=== PATIENT | male | born 1940 | race Caucasian/White ===

== ENCOUNTER 2019-08-02 14:17 | Emergency (ER) | payer OTHER ==
[2019-08-02 14:50] VITALS: TEMP 98.7; BMI 24.5
--- NOTE | 2019-08-02 15:09 | PDOC ---
History of Present Illness - General Chief Complaint: Injury Stated Complaint: FALL Time Seen by Provider: 08/02/19 14:49 - History of Present Illness Initial Comments: 08/02/19 15:10 Pt is an 79 y/o M with a significant past medical history of Emphysema, CAD, and TB who presents to our emergency Department due to a mechanical fall. Pt endorses that earlier today, he was walking and lost his balance. Pt endorses he landed with his hands facing forward; endorses he hit his head but did not lose any consciousness. Endorses lightheadedness before the fall. Denies chest pain, palpitations, shortness of breath, changes in vision, nausea/vomiting, or confusion,. PMH CAD s/p 1 stent. Lung resection 2/2 suspicious nodule, emphysema Social Hx- Smokes [id number] years, denies alcohol SurgHx- Lung Resection Past History - Past Medical History Allergies/Adverse Reactions: Allergies Allergy/AdvReac Type Severity Reaction Status Date / Time No Known Allergies Allergy Verified 08/02/19 15:36 COPD: Yes (emphysema/ TB) - Surgical History Cardiac Surgery: Yes (stent x 1 02/11/18 at [facility]) - Psycho Social/Smoking Cessation Hx Smoking History: Current every day smoker Number of Cigarettes Smoked Daily: 10 Information on smoking cessation initiated: No Hx Alcohol Use: No Drug/Substance Use Hx: No Review of Systems - Review of Systems Able to Perform ROS?: Yes Is the patient limited Bruneian proficient: No Constitutional: No: Fever, Weakness HEENTM: Yes: Blurred Vision (Not a new finding. Endorses h/o blurry vision. ). No: Eye Pain, Recent change in vision Respiratory: No: Cough, Shortness of Breath, Wheezing Cardiac (ROS): Yes: Lightheadedness. No: Chest Pain, Irregular Heart Rate, Syncope, Chest Tightness ABD/GI: No: Constipated, Diarrhea, Nausea Neurological: No: Headache, Numbness, Paresthesia, Unsteady Gait, Ataxia *Physical Exam - Vital Signs Last Vital Signs Temp Pulse Resp BP Pulse Ox 98.7 F 68 16 155/72 100 08/02/19 14:20 08/02/19 14:20 08/02/19 14:20 08/02/19 14:20 08/02/19 14:20 - Physical Exam HEENT: positive: EOMI, Other (laceration above right eye brow ). negative: Scleral Icterus (R), Scleral Icterus (L) Neck: positive: Supple Respiratory/Chest: positive: Decreased Breath Sounds Cardiovascular: positive: Regular Rhythm, Regular Rate, S1, S2 Gastrointestinal/Abdominal: negative: Distended, Guarding, Rebound, Tenderness Integumentary: positive: Other (superficial laceration b/l hands. 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 negative: Facial Droop, Numbness, Sensory Deficit ED Treatment Course - LABORATORY CBC & Chemistry Diagram: 08/02/19 16:52 08/02/19 16:52 Medical Decision Making - Medical Decision Making 08/02/19 15:34 Pt with mechanical fall, head trauma. Will order Head Ct to assess for any bleed. Also will order cbc w/ diff, CMP Will suture right index finger. Boostrix IM ordered. 08/02/19 16:57 Performed Laceration repair of right index finger. Full ROM, no sensory loss, no exposed bone or tendon. Informed Pt to rerurn to ER in 5-7 days to remove sutures. Head CT----> No Ct evidence of acute intracranial pathology. Probable 0.8x0.4 partially calcified right frontal meningioma. Mild periventricular chronic microvascular ischemic changes. Copy given to patient. Will d/c patient with close follow up with PMD. 08/04/19 13:16 Discharge - Discharge Information Problems reviewed: Yes Clinical Impression/Diagnosis: Fall Condition: Improved Disposition: HOME - Admission No - Follow up/Referral Referrals: Tonya Rey [Primary Care Provider] - - Patient Discharge Instructions Patient Printed Discharge Instructions: DI for Laceration Repair, How to Prevent Falls Additional Instructions: You were treated in the Emergency Department due to a head injury due to a fall. You also received sutures on your right index finger. Please return to the E.R in 5-7 days to remove the sutures. You may shower with a plastic bag over the finger. If you notice any increasing redness, swelling, warmth, or discoloration of the finger, please return to the emergency department immediately. If you develop any fever, nausea/vomiting, chest pain, headache, shortness of breath or any other abnormal symptoms, please return to the emergency department immediately. Please follow up with your primary care doctor within 1 week. - Post Discharge Activity
[2019-08-02] MEDS ORDERED: DIPHTH,PERTUSS(ACELL),TET 0.5 ML DISP.SYRIN IM ONE (15:32)
--- NOTE | 2019-08-02 15:49 | PDOC ---
Documentation entered by Mook Brown SCRIBE, acting as scribe for Nilda Campbell MD. Nilda Campbell MD: This documentation has been prepared by the Stephanie edwards Nirvannie, SCRIBE, under my direction and personally reviewed by me in its entirety. I confirm that the documentation accurately reflects all work, treatment, procedures, and medical decision making performed by me. Attending Attestation - Resident Resident Name: DrewTyrese - ED Attending Attestation I have performed the following: I have examined & evaluated the patient, The case was reviewed & discussed with the resident, I agree w/resident's findings & plan - HPI HPI: 08/02/19 15:46 Mr. Scott is an 79 y/o M h/o Emphysema, CAD, and TB who presents today s/p mechanical fall. He lost his balance, fell forward and landed on his hands (+) head trauma, no LOC, no amnesia No chest pain, no shortness of breath, no palpitations No nausea, vomiting or diarrhea - Physicial Exam PE: 08/02/19 15:48 GENERAL: The patient is in no acute distress. HEENT: bruising and abrasion right lateral orbital ridge, EOMI, PERRLA Ears normal, nares patent, oropharynx clear without exudates. Bite is nmlMoist mucous membranes. NECK: Normal range of motion, supple, no midline tenderness to palpation LUNGS: Breath sounds equal, clear to auscultation bilaterally. No wheezes, and no crackles. HEART:Regular rate and rhythm, normal S1 and S2 without murmur, rub or gallop. ABDOMEN: Soft, nontender, normoactive bowel sounds. EXTREMITIES: Normal range of motion, no edema. NEUROLOGICAL: Cranial nerves II through XII grossly intact. Normal speech. No focal neurological deficits. SKIN: bilateral hand abrasions noted on the dorsum of both hands 08/02/19 16:18 - Medical Decision Making 08/02/19 15:48 79-year-old male presenting to the emergency department status post mechanical fall. No loss of consciousness, no amnesia. We will do: Lab EKG CT head Boostrix Xray hand ReAssess Signed out to Dr. Barr pending CT, suture repair, labs Anticipate discharge
[2019-08-02 17:06] LABS: BASO % 0.7 % (0-2.0); EOS % 0.7 % (0-4.5); HEMATOCRIT 44.2 % (35.4-49); HEMOGLOBIN 15.1 GM/dL (11.7-16.9); LYMPH % 13.3 % (8-40); MCH 32.8 pg (25.7-33.7); MCHC 34.1 g/dl (32.0-35.9); MEAN CELL VOLUME 96.2 fl (80-96); MEAN PLT VOLUME 8.5 fl (7.5-11.1); MONO % 5.9 % (3.8-10.2); NEUT % 79.4 % (42.8-82.8); PLATELET COUNT 180 K/MM3 (134-434); RDW 13.4 % (11.9-15.9); WHITE BLOOD COUNT 12.5 K/mm3 (4.0-10.0)
[2019-08-02 17:28] LABS: ALBUMIN 3.5 g/dl (3.4-5.0); BILIRUBIN,TOTAL 0.5 mg/dL (0.2-1); BLOOD UREA NITROGEN 19.2 mg/dL (7-18); CALCIUM 8.7 mg/dL (8.5-10.1); CREATININE 0.8 mg/dL (0.55-1.3); POTASSIUM 3.8 mmol/L (3.5-5.1); TOT PROT 6.7 g/dl (6.4-8.2)
[2019-08-02 17:40] VITALS: BP 148/72; PULSE 76
== END 2019-08-02 17:40 | disposition home or self-care (01) ==
LOC: JER 14:17
PROC: 3E0234Z Introduction of Serum, Toxoid and Vaccine into Muscle, Percutaneous Approach (ICD-10-PCS; principal; 2019-08-02)
PROC: 0HQFXZZ Repair Right Hand Skin, External Approach (ICD-10-PCS; 2019-08-02)
DX: S09.8XXA Other specified injuries of head, initial encounter (principal); S61.210A Laceration without foreign body of right index finger without damage to nail, initial encounter; S00.81XA Abrasion of other part of head, initial encounter; Y93.89 Activity, other specified; W18.39XA Other fall on same level, initial encounter; Y92.480 Sidewalk as the place of occurrence of the external cause; Y99.8 Other external cause status; J43.9 Emphysema, unspecified; I25.10 Atherosclerotic heart disease of native coronary artery without angina pectoris; Z95.5 Presence of coronary angioplasty implant and graft; Z98.890 Other specified postprocedural states; Z86.11 Personal history of tuberculosis
CPT/HCPCS: 12001-25; 36415; 70450-TC; 80053; 85025; 90471; 90715; 99282-25

== ENCOUNTER 2020-05-22 19:06 | Inpatient (IN) | payer OTHER ==
--- NOTE | 2020-05-22 19:52 | PDOC ---
Attending Attestation - Resident Resident Name: Abdulaziz Lopez - HPI HPI: 05/22/20 23:30 Pt presents to the ED complaining of generalized weakness after fall. Denies LOC, but states that he was unable to get up. on my exam, the patient is confused, which is not his baseline as per his son. 05/23/20 00:24 - Physicial Exam PE: 05/23/20 00:25 Agree with resident exam. Patient is alert and oriented and in no acute distress. Lungs are clear. CV rr + systolic murmur. Abdomen soft, non tender, non distended. Neuro: alert, oriented x 1. CN grossly intact. - Medical Decision Making 05/23/20 00:27 Pt presents to the ED complaining of generalized weakness. COnfused on exam. Labs show UTI, CT head is negative for acute changes. Will start antibiotics and admit to medicine. Discharge - Discharge Information Problems reviewed: Yes Clinical Impression/Diagnosis: Fall UTI (urinary tract infection) Qualifiers: Urinary tract infection type: site unspecified Hematuria presence: with hematuria Qualified Code(s): N39.0 - Urinary tract infection, site not specified Condition: Guarded - Follow up/Referral - Patient Discharge Instructions - Post Discharge Activity
[2020-05-22 20:28] VITALS: BMI 22.7
[2020-05-22 21:28] LABS: BASO % 0.1 % (0-2.0); HEMATOCRIT 44.2 % (35.4-49); HEMOGLOBIN 14.6 GM/dL (11.7-16.9); LYMPH % 4.2 % (8-40); MCH 32.2 pg (25.7-33.7); MCHC 33.1 g/dl (32.0-35.9); MEAN CELL VOLUME 97.3 fl (80-96); MEAN PLT VOLUME 8.9 fl (7.5-11.1); MONO % 9.2 % (3.8-10.2); NEUT % 86.5 % (42.8-82.8); PLATELET COUNT 173 K/MM3 (134-434); RBC 4.54 M/mm3 (4.00-5.60); RDW 13.9 % (11.9-15.9); WHITE BLOOD COUNT 19.6 K/mm3 (4.0-10.0)
[2020-05-22 21:32] LABS: EPI CELLS 1 /uL (0-25.1); HYALINE CASTS 2 /uL (0-3.1); URINE APPEARANCE CLEAR; URINE BACTERIA >9,000 /uL (0-1359); URINE BILIRUBIN NEGATIVE (NEGATIVE); URINE COLOR YELLOW; URINE GLUCOSE (UA) NEGATIVE (NEGATIVE); URINE KETONE 3+ (NEGATIVE); URINE LEUK ESTERASE 1+ (NEGATIVE); URINE NITRITE POSITIVE (NEGATIVE); URINE PROTEIN 2+ (NEGATIVE); URINE RBC 17 /uL (0-23.9); URINE WBC 122 /uL (0-25.8)
[2020-05-22 22:00] LABS: ALBUMIN 3.4 g/dl (3.4-5.0); BILIRUBIN,TOTAL 1.9 mg/dL (0.2-1); BLOOD UREA NITROGEN 20.2 mg/dL (7-18); CALCIUM 8.7 mg/dL (8.5-10.1); CREATININE 1.2 mg/dL (0.55-1.3); POTASSIUM 3.4 mmol/L (3.5-5.1); TOT PROT 7.1 g/dl (6.4-8.2)
[2020-05-22] MEDS ORDERED: CEFTRIAXONE 1 GM in DEXTROSE 5%-WATER - 100 ML IVPB ONE (22:01)
--- NOTE | 2020-05-22 22:06 | PDOC ---
History of Present Illness - General Chief Complaint: Injury Stated Complaint: FALL Time Seen by Provider: 05/22/20 19:46 History Source: Patient Exam Limitations: No Limitations - History of Present Illness Initial Comments: 05/22/20 22:00 79 yo M pmh COPD, HTN, lung resection, h/o TB presenting from home s/p fall with inability to stand up afterwards. Per EMS, patient was on the ground, unable to remain standing without their assistance, unable to remain standing with his w alker alone. Complaining only of generalized weakness. Son at bedside says he seems more confused than this past weekend (normally can hold a complete relatively sophisticated conversation) and is talking about having a stroke 4 weeks ago that did not happen. Also notes some tremulousness that has increased since baseline. Patient has had increasingly unsteady gait over the past 2-3 weeks. Denies headache, nausea, vomiting, fevers, chills, headache, changes in his vision. Reports that he was upset with something in his Past History - Travel History Traveled outside of the country in the last 30 days: No Close contact w/someone who was outside of country & ill: No - Medical History Allergies/Adverse Reactions: Allergies Allergy/AdvReac Type Severity Reaction Status Date / Time No Known Allergies Allergy Verified 08/02/19 15:36 COPD: Yes (emphysema/ TB) - Surgical History Cardiac Surgery: Yes (stent x 1 02/11/18 at [facility]) - Psycho-Social/Smoking History Smoking History: Former smoker Have you smoked in the past 12 months: No Number of Cigarettes Smoked Daily: 20 Information on smoking cessation initiated: Yes - Substance Abuse Hx (Audit-C & DAST Scrn) How often the patient has a drink containing alcohol: Never Score: In Men: 4 or > Positive; In Women: 3 or > Positive: 0 Screen Result (Pos requires Nsg. Audit-10AR): Negative In the last yr the pt used illegal drug/Rx for NonMed reason: No Score: Yes response is considered Positive: 0 Screen Result (Positive result requires Nsg. DAST-10): Negative Review of Systems - Review of Systems Able to Perform ROS?: Yes Is the patient limited Martiniquais proficient: Yes Constitutional: Yes: Weakness. No: Chills, Fever HEENTM: No: Recent change in vision, Nose Pain, Throat Pain Respiratory: No: Cough, Shortness of Breath, Wheezing, Productive cough Cardiac (ROS): No: Chest Pain, Edema, Irregular Heart Rate, Lightheadedness, Palpitations, Syncope, Chest Tightness ABD/GI: No: Constipated, Diarrhea, Nausea, Vomiting : No: Burning, Dysuria, Frequency Musculoskeletal: Yes: Muscle Weakness. No: Muscle Pain Integumentary: No: Bruising, Pruritus, Rash Neurological: No: Headache, Numbness, Tingling, Weakness Psychiatric: No: Stressors, Change in Appetite Endocrine: No: Increased Thirst, Increased Urine, Change in Weight Hematologic/Lymphatic: No: Anemia, Blood Clots, Easy Bleeding All Other Systems: Reviewed and Negative *Physical Exam - Vital Signs Last Vital Signs Temp Pulse Resp BP Pulse Ox 99.0 F 74 18 141/60 98 05/22/20 20:25 05/22/20 20:25 05/22/20 20:25 05/22/20 20:25 05/22/20 20:25 - Physical Exam 05/22/20 22:10 Vitals reviewed, AFVSS 99.0 oral temp GEN: Appears stated age, NAD, comfortable, confused, room smells of urine. AAOx2. HEENT: NCAT, EOMI, PERRL. Sclera anicteric, non-injected. No facial asymmetry. Moist mucous membranes. Normal voice. Trachea midline. CV: RRR, S1/S2, no murmurs / rubs / gallops appreciated. LUNG: CTABL, normal work of breathing. No wheezes, rales, rhonchi. No cough. Speaking full sentences. GI: Soft, NTND, +BS, no guarding, no rebound. No masses. EXTREMITIES: 2+ distal pulses. No clubbing / cyanosis / edema. No gross deformity in any extremity. SKIN: Warm, dry, no rashes appreciated, non-jaundiced. PSYCH: Normal mood and affect. Cooperative and appropriate. NEURO: CN grossly intact. Moving all extremities equally. Normal symmetric strength and sensation of light touch. ED Treatment Course - LABORATORY CBC & Chemistry Diagram: 05/22/20 21:00 05/22/20 21:00 - ADDITIONAL ORDERS Additional order review: Laboratory Results 05/22/20 05/22/20 21:10 21:00 Lactic Acid 1.6 Urine Color Yellow Urine Appearance Clear Urine pH 5.0 Ur Specific Reading 1.024 Urine Protein 2+ H Urine Glucose (UA) Negative Urine Ketones 3+ H Urine Blood 3+ H Urine Nitrite Positive H Urine Bilirubin Negative Urine Urobilinogen 1.0 Ur Leukocyte Esterase 1+ H Urine WBC (Auto) 122 Urine RBC (Auto) 17 Urine Casts (Auto) 2 U Epithel Cells (Auto) 1 Urine Bacteria (Auto) >9,000 05/22/20 21:00 RBC 4.54 MCV 97.3 H MCHC 33.1 RDW 13.9 MPV 8.9 Neutrophils % 86.5 H Lymphocytes % 4.2 L D Monocytes % 9.2 Eosinophils % 0.0 D Basophils % 0.1 - RADIOLOGY Radiology Studies Ordered: Category Date Time Status HEAD CT WITHOUT CONTRAST [CT] Stat CT Scan 05/22/20 21:40 Taken CHEST X-RAY PORTABLE* [RAD] Stat Radiology 05/22/20 20:29 Taken Medical Decision Making - Medical Decision Making 05/22/20 22:12 79yo M pmh HTN, COPD, lung resection, h/o TB, presenting s/p fall with generalized weakness and inability to get back up. History notable for progressive difficulty walking over 2-3 weeks, fall with weakness preventing him from getting back up. Exam notable for dark foul smelling urine, fatigue. DDX: Infection (UTI vs PNA), CVA, electrolyte abnormality, neurologic disorder. - Sepsis workup - NCHCT - EKG 05/22/20 22:28 Labs notable for leukocytosis to 20, elevated troponin 0.37, elevated CK, UTI LR 1L ordered, plan for repeat troponin afterwards Ofirmev EKbpm, sinus, normal axis, notable for significant LVH, T wave biphasic in V4, inversion in V5 and V6 Patient adamantly denies chest pain, pressure, shortness of breath Dispo: Admit Tele for troponin elevation in setting of sepsis with suspected urinary source Discharge - Discharge Information Problems reviewed: Yes Clinical Impression/Diagnosis: Fall Qualifiers: Encounter type: initial encounter Qualified Code(s): W19.XXXA - Unspecified fall, initial encounter UTI (urinary tract infection) Qualifiers: Urinary tract infection type: site unspecified Hematuria presence: with hematuria Qualified Code(s): N39.0 - Urinary tract infection, site not specified Condition: Guarded - Admission Yes - Follow up/Referral - Patient Discharge Instructions - Post Discharge Activity
[2020-05-22] MEDS ORDERED: LACTATED RINGERS SOLUTION 1,000 ML/1,000 ML INFUS.BAG IV SCH (22:30)
[2020-05-22] MEDS ORDERED: CEFTRIAXONE 1 GM/50 ML BAG ONE (22:33)
[2020-05-22] MEDS ORDERED: ACETAMINOPHEN 1000 MG/100 ML VIAL (NON FORMULARY) IVPB ONE (22:37)
[2020-05-22] MEDS ORDERED: LACTATED RINGERS SOLUTION 1000 ML INFUS.BAG IV ONE (23:12)
[2020-05-22] MEDS ORDERED: ACETAMINOPHEN INJECTION 100 ML IVPB ONE (23:14)
--- NOTE | 2020-05-22 23:15 | PN ---
Teaching Attending Note Name of Resident: Barbie Sanchez ATTENDING PHYSICIAN STATEMENT I saw and evaluated the patient. I reviewed the resident's note and discussed the case with the resident. I agree with the resident's findings and plan as documented. SUBJECTIVE: Patient is an 79 year old man with a PMH of COPD, HTN, Lung resection (?for Tuberculosis), AAA and Cardiac stents presenting from home after a fall with inability to stand up afterwards. Per EMS, patient was on the ground, unable to remain standing without their assistance, unable to remain standing with his walker alone. Complaining only of generalized weakness. Son at bedside says he seems more confused than this past weekend (normally can hold a complete relatively sophisticated conversation) and is talking about having a stroke 4 weeks ago that did not happen. Also notes some tremulousness that has increased since baseline. Patient has had increasingly unsteady gait over the past 2-3 weeks. Denies headache, nausea, vomiting, fevers, chills, headache or changes in his vision. Patient denies chest pain, shortness of breath, abdominal pain, diarrhea, constipation, dysuria, frequency, urgency, melena, hematochezia or hematuria. Denies alcohol, tobacco or illicit drug use. No sick contacts or recent travels. Family history is unremarkable. OBJECTIVE: Alert and weak Vital Signs Period Temp Pulse Resp BP Sys/Zamudio Pulse Ox Last 24 Hr 99.0 F-100.0 F 74 18 141/60 98 HEENT: No Jaundice, eye redness or discharge, PERRLA, EOMI. Normocephalic, atraumatic; left side keratotic scalp lesion;. External ears are normal and hearing is grossly intact. No nasal discharge. Neck: Supple, nontender. No palpable adenopathy or thyromegaly. No JVD Chest: Good effort. Clear to auscultation and percussion. Heart: Regular. No S3, rub or murmur Abdomen: Not distended, soft, nontender and no HSM. No rebound or guarding. Normal bowel sounds. Ext: Peripheral pulses intact. No leg edema. Left thigh keratotic lesion. Skin: Warm and dry. No petechiae, rash or ecchymosis. Neuro: Alert. Oriented to person and place. CN 2-12 grossly intact. Sensation grossly intact in all four extremities and DTR are symmetric. Gait not tested for safety reasons. Psych: Appropriate mood and affect. Good insight. Abnormal Lab Results 05/22/20 05/22/20 05/22/20 21:00 21:00 21:10 WBC 19.6 H MCV 97.3 H Absolute Neuts (auto) 17.0 H Neutrophils % 86.5 H Lymphocytes % 4.2 L D Potassium 3.4 L Chloride 108 H BUN 20.2 H Total Bilirubin 1.9 H AST 75 H Creatine Kinase 2392 H CK-MB (CK-2) 8.6 H Troponin I 0.37 H Urine Protein 2+ H Urine Ketones 3+ H Urine Blood 3+ H Urine Nitrite Positive H Ur Leukocyte Esterase 1+ H Current Medications Generic Name Dose Route Start Last Admin Trade Name Freq PRN Reason Stop Dose Admin Enoxaparin Sodium 40 mg 05/23/20 10:00 Lovenox - SQ DAILY SHERWIN Sodium Chloride 1,000 mls @ 75 mls/hr 05/23/20 00:30 Normal Saline - IV ASDIR SHERWIN Potassium Chloride 10 meq in 100 mls @ 100 mls/hr 05/23/20 00:45 Potassium Chloride 10 Meq Premix Ivpb - IVPB 05/23/20 03:44 Q60M [facility] ASSESSMENT AND PLAN: 1. Sepsis due to UTI/?Toxic metabolic encephalopathy - No evidence of acute intracranial pathology on noncontrast head CT scan; but shows calcified meningioma and soft tissue thickening in left frontal scalp. CXR shows RLL atelecatasis. Sepsis workup done and patient started on IV Ceftriaxone and IV NS. EKG shows NSR at 84/minute and QTc [address] depression/J point depression in II, III and T wave inversion in V5,V6 and LVH. No old EKG available for comparison. Initial troponin is 0.37 - may be demand ischemia and/or decreased clearance, but he has cardiac stents - will rule out ACS. Has rhabdomyolysis and elevated LFTs. Hypokalemia is unexplained. Will check phosphate, serum magnesium, give IV and PO KCL. Will admit to telemetry, trend troponin, repeat EKG, get ECHO, RUQ sonogram, trend LFTS, avoid hepatotoxic drugs, get fasting lipids, brain MRI, do speech and swallow evaluation, neurochecks and implement fall/aspiration/seizure precautions. Consult Cardiology/PT/Neurology/ID. Viral testing for COVID-19 ordered and patient placed on airborne, droplet and contact isolation. Continue the outpatient Dermatology evaluation for left scalp and thigh "keratotic" skin lesion. Will continue comprehensive care for all of patients comorbid conditions. 2. Hypertension Will restart suitable outpatient antihypertensive drugs when clinically appropriate. Subsequently, will revise regimen to ensure [id number] excellent BP control. Patient counseled on the injurious effects of uncontrolled hypertension. Nonpharmacologic measures to control hypertension like weight loss, salt restriction and exercise stressed. Importance of adherence to treatment regimen and attainment of normotension emphasized. 3. DVT prophylaxis - Lovenox 40 mg SQ q 24 hours. 4. Advance directives - Full code
[2020-05-23] MEDS ORDERED: KCL 10 MEQ IVPB 30 MEQ/300 ML INFUS.BAG IVPB ONE (01:38)
[2020-05-23] MEDS: SODIUM CHLORIDE 1,000 ML IV SCH (01:47)
[2020-05-23] MEDS: KCL 10 MEQ IVPB 10 MEQ/100 ML INFUS.BAG IVPB SCH ×3 (01:47→04:22)
[2020-05-23 02:03] LABS: INR 1.32 (0.83-1.09); PROTHROMBIN TIME (PATIENT) 15.6 SEC (9.7-13.0)
[2020-05-23 02:06] LABS: ACTIVATED PTT 31.5 SECONDS (25.2-36.5)
--- NOTE | 2020-05-23 03:31 | HP ---
CHIEF COMPLAINT: fall PCP: Dr. Owen ([facility]) HISTORY OF PRESENT ILLNESS: 79 y.o. 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 The son was present at bedside during my exam to support the pt's story. Patient says he was sleeping and woke up to use the bathroom. When he tried to stand up he fell to the ground and wasn't able to stand up. He was able to call for help and was brought to the ED. As per son patients mental status is altered from his baseline (normally aox3, complete sentences). According to the son, the pt's memory has been progressively declining over the past 6 months, however since the fall today he has noticed a rapid decline in mental status. At home he ambulates with a cane and is mobile on his own. ER course was notable for: (1) Rocephin 1g (2) 2L IVF (3) EKG: NSR. LVH. rate [address] elevation in V3 no prior comparison studies. Repeat EKG @ 4:28AM showing decreasing ST interval in V3. 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 Social History: lives alone in independent living housing Smoking: denies Alcohol:denies Drugs: denies Allergies No Known Allergies Allergy (Verified 08/02/19 15:36) HOME MEDICATIONS: REVIEW OF SYSTEMS CONSTITUTIONAL: Absent: fever, chills, diaphoresis, generalized weakness, malaise, loss of appetite, weight change HEENT: Absent: rhinorrhea, nasal congestion, throat pain, throat swelling, difficulty swallowing, mouth swelling, ear pain, eye pain, visual changes CARDIOVASCULAR: Absent: chest pain, syncope, palpitations, irregular heart rate, lightheadedness, peripheral edema RESPIRATORY: Absent: cough, shortness of breath, dyspnea with exertion, orthopnea, wheezing, stridor, hemoptysis GASTROINTESTINAL: Absent: abdominal pain, abdominal distension, nausea, vomiting, diarrhea, constipation, melena, hematochezia GENITOURINARY: Absent: dysuria, frequency, urgency, hesitancy, hematuria, flank pain, genital pain MUSCULOSKELETAL: Absent: myalgia, arthralgia, joint swelling, back pain, neck pain SKIN: Absent: rash, itching, pallor HEMATOLOGIC/IMMUNOLOGIC: Absent: easy bleeding, easy bruising, lymphadenopathy, frequent infections ENDOCRINE: Absent: unexplained weight gain, unexplained weight loss, heat intolerance, cold intolerance NEUROLOGIC: Absent: headache, focal weakness or paresthesias, dizziness, unsteady gait, seizure, mental status changes, bladder or bowel incontinence PSYCHIATRIC: Absent: anxiety, depression, suicidal or homicidal ideation, hallucinations. PHYSICAL EXAMINATION Vital Signs - 24 hr 05/22/20 05/22/20 05/22/20 20:25 23:10 23:55 Temperature 99.0 F 100.0 F H Pulse Rate 74 Pulse Rate [ 75 Left Radial] Respiratory 18 20 Rate Blood Pressure 141/60 Blood Pressure 123/57 L [Right Arm] O2 Sat by Pulse 98 95 Oximetry (%) 05/23/20 02:43 Temperature Pulse Rate Pulse Rate [ 70 Left Radial] Respiratory 18 Rate Blood Pressure Blood Pressure 109/89 [Right Arm] O2 Sat by Pulse 96 Oximetry (%) GENERAL: Awake, alert, and fully oriented, in no acute distress. HEENT: left frontal scalp has a chronic soft tissue swelling with areas of fungating outgrowth. LUNGS: Breath sounds equal, clear to auscultation bilaterally. No wheezes, and no crackles. No accessory muscle use. HEART: Regular rate and rhythm, normal S1 and S2. + systolic murmur left sternal border ABDOMEN: Soft, nontender, not distended, normoactive bowel sounds, no guarding EXTREMITIES: 2+ pulses, warm, well-perfused. No calf tenderness. No peripheral edema. Left media thigh keratosis NEUROLOGICAL: Cranial nerves II-XII intact. PSYCHIATRIC: Cooperative. Good eye contact. Appropriate mood and affect. SKIN: Warm, dry, normal turgor, no rashes or lesions noted, normal capillary refill. Laboratory Results - last 24 hr 05/22/20 05/22/20 05/22/20 21:00 21:00 21:00 WBC 19.6 H RBC 4.54 Hgb 14.6 Hct 44.2 MCV 97.3 H MCH 32.2 MCHC 33.1 RDW 13.9 Plt Count 173 MPV 8.9 Absolute Neuts (auto) 17.0 H Neutrophils % 86.5 H Lymphocytes % 4.2 L D Monocytes % 9.2 Eosinophils % 0.0 D Basophils % 0.1 Nucleated RBC % 0 PT with INR INR PTT (Actin FS) Sodium 144 Potassium 3.4 L Chloride 108 H Carbon Dioxide 25 Anion Gap 11 BUN 20.2 H Creatinine 1.2 Est GFR (CKD-EPI)AfAm 65.79 Est GFR (CKD-EPI)NonAf 56.77 Random Glucose 79 Lactic Acid 1.6 Calcium 8.7 Total Bilirubin 1.9 H AST 75 H ALT 31 Alkaline Phosphatase 71 Creatine Kinase 2392 H Creatine Kinase Index 0.3 CK-MB (CK-2) 8.6 H Troponin I 0.37 H Total Protein 7.1 Albumin 3.4 Urine Color Urine Appearance Urine pH Ur Specific [place] Urine Protein Urine Glucose (UA) Urine Ketones Urine Blood Urine Nitrite Urine Bilirubin Urine Urobilinogen Ur Leukocyte Esterase Urine WBC (Auto) Urine RBC (Auto) Urine Casts (Auto) U Epithel Cells (Auto) Urine Bacteria (Auto) 05/22/20 05/23/20 05/23/20 21:10 01:30 01:30 WBC RBC Hgb Hct MCV MCH MCHC RDW Plt Count MPV Absolute Neuts (auto) Neutrophils % Lymphocytes % Monocytes % Eosinophils % Basophils % Nucleated RBC % PT with INR 15.60 H INR 1.32 H PTT (Actin FS) 31.5 Sodium Potassium Chloride Carbon Dioxide Anion Gap BUN Creatinine Est GFR (CKD-EPI)AfAm Est GFR (CKD-EPI)NonAf Random Glucose Lactic Acid Calcium Total Bilirubin AST ALT Alkaline Phosphatase Creatine Kinase Creatine Kinase Index CK-MB (CK-2) Troponin I 0.44 H Total Protein Albumin Urine Color Yellow Urine Appearance Clear Urine pH 5.0 Ur Specific [place] 1.024 Urine Protein 2+ H Urine Glucose (UA) Negative Urine Ketones 3+ H Urine Blood 3+ H Urine Nitrite Positive H Urine Bilirubin Negative Urine Urobilinogen 1.0 Ur Leukocyte Esterase 1+ H Urine WBC (Auto) 122 Urine RBC (Auto) 17 Urine Casts (Auto) 2 U Epithel Cells (Auto) 1 Urine Bacteria (Auto) >9,000 ASSESSMENT/PLAN: 79 y.o. 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 #Acute toxic metabolic encephalopathy 2/2 UTI -UA with many bacteria & wbcs -s/p rocephin in ED; continue -continue IVF, NS @75cc/hr -CT head showing subcutaneous soft tissue thickening at the left frontal scalp- may be due to dermatologic lesion. Also shows frontal dural calcified meningioma #EKG changes r/o ACS -trop 0.37, 0.44- trend -Noted on EKG: ST elevation in V3. TWI V5 & V6 -f/u repeat EKG stat -patient denying chest pain currently -cardiology consulted for EKG changes (Dr. Leung) -monitor on telemetry #Rhabdomyolysis -trend CPK -IVF #Elevated T. bili -f/u direct bili -f/u RUQ U/S #Seborrheic keratosis -present on left scalp and left medial thigh -patient does not endorse discomfort -CT head negative for acute pathology #FEN -NS @75 cc/hr -K+ repleted -NPO pending cardio recs #PPX: lovenox 40 sq daily #Dispo telemetry Family Medical History Family History: Unable to Obtain Visit type - Medication Review Med list reviewed for High Risk Meds patients 65 and older: Yes - Emergency Visit Emergency Visit: Yes ED Registration Date: 05/22/20 Care time: The patient presented to the Emergency Department on the above date and was hospitalized for further evaluation of their emergent condition. - New Patient This patient is new to me today: Yes Date on this admission: 05/24/20 - Critical Care Critical Care patient: No ATTENDING PHYSICIAN STATEMENT I saw and evaluated the patient. I reviewed the resident's note and discussed the case with the resident. I agree with the resident's findings and plan as documented. SUBJECTIVE: OBJECTIVE: ASSESSMENT AND PLAN:
--- NOTE | 2020-05-23 07:51 | HP ---
Admitting History and Physical - Smoking History Smoking history: Former smoker Have you smoked in the past 12 months: No Aproximately how many cigarettes per day: 20 - Alcohol/Substance Use Hx Alcohol Use: No Home Medications - Allergies Allergies/Adverse Reactions: Allergies Allergy/AdvReac Type Severity Reaction Status Date / Time No Known Allergies Allergy Verified 08/02/19 15:36 Physical Examination Vital Signs: Vital Signs Temperature 98.3 F 05/23/20 04:00 Pulse Rate 96 H 05/23/20 06:00 Respiratory Rate 20 05/23/20 06:00 Blood Pressure 120/51 L 05/23/20 06:00 O2 Sat by Pulse Oximetry (%) 98 05/23/20 06:00
--- NOTE | 2020-05-23 07:51 | PN ---
Progress Note, Physician Chief Complaint: Seen and examined in ICU. Pt very anxious about hospitalization.States he feels very weak. No chest pain or shortness of breath. Cardiac w/u in progress History of Present Illness: 79 y.o. 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 - Current Medication List Current Medications: Active Medications Enoxaparin Sodium (Lovenox -) 40 mg SQ DAILY SHERWIN Sodium Chloride (Normal Saline -) 1,000 mls @ 75 mls/hr IV ASDIR SHERWIN Last Admin: 05/23/20 01:47 Dose: 75 mls/hr Documented by: Ceftriaxone Sodium 1 gm/ (Dextrose) 50 mls @ 100 mls/hr IVPB Q24H SHERWIN; Protocol - Objective Vital Signs: Vital Signs Temperature 98.3 F 05/23/20 04:00 Pulse Rate 96 H 05/23/20 06:00 Respiratory Rate 20 05/23/20 06:00 Blood Pressure 120/51 L 05/23/20 06:00 O2 Sat by Pulse Oximetry (%) 98 05/23/20 06:00 Constitutional: Yes: No Distress, Anxious, Thin Eyes: Yes: WNL, Conjunctiva Clear HENT: Yes: WNL, Atraumatic, Normocephalic, Other ( left scalp lesion noted) Neck: Yes: WNL, Supple, Trachea Midline Cardiovascular: Yes: WNL, Regular Rate and Rhythm Respiratory: Yes: WNL, Regular, CTA Bilaterally Gastrointestinal: Yes: WNL, Normal Bowel Sounds ...Rectal Exam: Yes: Deferred Genitourinary: Yes: WNL Breast(s): Yes: WNL Musculoskeletal: Yes: WNL Extremities: Yes: WNL Edema: No Peripheral Pulses WNL: Yes Peripheral Pulses: Left Radial: 2+, Right Radial: 2+, Left Doralis Pedis: 2+, Right Dorsalis Pedis: 2+, Left Femoral: 2+, Right Femoral: 2+ Integumentary: Yes: Other (Seborrheic keratosis present on left scalp and left medial thigh) Neurological: Yes: WNL, Alert, Oriented ...Motor Strength: LLE, RLE (generalized weakness) Psychiatric: Yes: WNL, Alert, Oriented Labs: INR, PTT INR 1.32 (0.83-1.09) H 05/23/20 01:30 - ....Imaging Chest X-ray: Image Reviewed (no effusion/imfiltrates) Cat Scan: Report Reviewed (HCT no acute pathology) Ultrasound: Report Reviewed (fatty infiltattion of lover, AAA with stent) Problem List - Problems (1) COPD (chronic obstructive pulmonary disease) Assessment/Plan: Supplemental O2 to maintain SPO2 >90% dup nebs prn Code(s): J44.9 - CHRONIC OBSTRUCTIVE PULMONARY DISEASE, UNSPECIFIED (2) HTN (hypertension) Assessment/Plan: normotensive metoprolol as per cardiology with hold parameters Code(s): I10 - ESSENTIAL (PRIMARY) HYPERTENSION (3) CAD (coronary artery disease) Assessment/Plan: c/w asa,statin,betablocker appreciate cardiology consultation Code(s): I25.10 - ATHSCL HEART DISEASE OF [place] CORONARY ARTERY W/O ANG PCTRS (4) H/O pneumonectomy Code(s): Z98.890 - OTHER SPECIFIED POSTPROCEDURAL STATES; Z90.2 - ACQUIRED ABSENCE OF LUNG [PART OF] (5) S/P CABG (coronary artery bypass graft) Code(s): Z95.1 - PRESENCE OF AORTOCORONARY BYPASS GRAFT (6) Prophylactic measure Assessment/Plan: FEN Fluids: adequate PO intake Electrolytes: monitor & replete as needed Nutrition: low sodium diet DVT moderate risk sq heparin Dispo Maintain as inpatient full code discharge planning to home vs snf Code(s): Z29.9 - ENCOUNTER FOR PROPHYLACTIC MEASURES, UNSPECIFIED (7) Acute metabolic encephalopathy Assessment/Plan: multifactorial, UTI, advanced age HCT negative for acute pathology c/w abx PT supportive care Code(s): G93.41 - METABOLIC ENCEPHALOPATHY (8) Rhabdomyolysis Assessment/Plan: CK 2392>3647 c/w IVF c/t trend Code(s): M62.82 - RHABDOMYOLYSIS (9) Seborrheic keratosis Code(s): L82.1 - OTHER SEBORRHEIC KERATOSIS (10) Fall Assessment/Plan: PT ordered fall precvautions monitor on tele to r/o cardiac involment TTT ordered Code(s): W19.XXXA - UNSPECIFIED FALL, INITIAL ENCOUNTER Qualifiers: Encounter type: initial encounter Qualified Code(s): W19.XXXA - Unspecified fall, initial encounter (11) UTI (urinary tract infection) Assessment/Plan: +UTI UCx pending c/w ceftriaxone until resulted frequent toileting Code(s): N39.0 - URINARY TRACT INFECTION, SITE NOT SPECIFIED Qualifiers: Urinary tract infection type: site unspecified Hematuria presence: with hematuria Qualified Code(s): N39.0 - Urinary tract infection, site not specified; R31.9 - Hematuria, unspecified (12) Constipation Assessment/Plan: retained stool seen on CT miralax daily Code(s): K59.00 - CONSTIPATION, UNSPECIFIED (13) Suspected COVID-19 virus infection Assessment/Plan: COVID Suspicion low On 2L NC no finding on CT strict airborne/droplet precautions until resulted Code(s): Z20.828 - CONTACT W AND EXPOSURE TO OTH VIRAL COMMUNICABLE DISEASES (14) ACS (acute coronary syndrome) Assessment/Plan: trop 0.37> 0.44>.39 EKG: ST elevation in V3. TWI V5 & V6 no chest pain currently maitian on tele cardioogy following c/w asa/BB/statin TTE ordered Code(s): I24.9 - ACUTE ISCHEMIC HEART DISEASE, UNSPECIFIED (15) Weakness Assessment/Plan: PT fall precautions lives home with -will discuss with family possible STR if does not improve Code(s): R53.1 - WEAKNESS (16) Moderate protein-calorie malnutrition Assessment/Plan: as evidenced by BMI 22, temporal and muscle wasting, generalized weakness supplements with meals account resolution expert consult [laced Code(s): E44.0 - MODERATE PROTEIN-CALORIE MALNUTRITION Visit type - Emergency Visit Emergency Visit: Yes ED Registration Date: 05/22/20 Care time: The patient presented to the Emergency Department on the above date and was hospitalized for further evaluation of their emergent condition. - New Patient This patient is new to me today: Yes Date on this admission: 05/23/20 - Critical Care Critical Care patient: No - Discharge Referral Referred to [facility] Med P.C.: No - Medication Review Med list reviewed for High Risk Meds patients 65 and older: Yes
[2020-05-23 07:58] LABS: INR 1.28 (0.83-1.09); PROTHROMBIN TIME (PATIENT) 15.1 SEC (9.7-13.0)
[2020-05-23 08:00] LABS: ACTIVATED PTT 23.8 SECONDS (25.2-36.5)
[2020-05-23 08:12] LABS: BASO % 0.3 % (0-2.0); HEMATOCRIT 43.5 % (35.4-49); HEMOGLOBIN 14.7 GM/dL (11.7-16.9); LYMPH % 5.7 % (8-40); MCH 33.2 pg (25.7-33.7); MCHC 33.8 g/dl (32.0-35.9); MEAN CELL VOLUME 98.1 fl (80-96); MEAN PLT VOLUME 9.4 fl (7.5-11.1); PLATELET COUNT 167 K/MM3 (134-434); RBC 4.44 M/mm3 (4.00-5.60); RDW 13.8 % (11.9-15.9); WHITE BLOOD COUNT 16.8 K/mm3 (4.0-10.0)
[2020-05-23 08:17] LABS: ALBUMIN 3.3 g/dl (3.4-5.0); BILIRUBIN,TOTAL 1.9 mg/dL (0.2-1); BLOOD UREA NITROGEN 20.8 mg/dL (7-18); CALCIUM 8.5 mg/dL (8.5-10.1); CREATININE 1.2 mg/dL (0.55-1.3); MAGNESIUM 1.8 mg/dL (1.8-2.4); PHOSPHOROUS 2.4 mg/dL (2.5-4.9)
[2020-05-23] MEDS: ENOXAPARIN NA (PORCINE) 40 MG/0.4 ML DISP.SYRIN SQ SCH (09:46)
--- NOTE | 2020-05-23 10:15 | EKG ---
Test Reason : Blood Pressure : / mmHG Vent. Rate : 084 BPM Atrial Rate : 084 BPM P-R Int : 158 ms QRS Dur : 090 ms QT Int : 388 ms P-R-T Axes : 089 067 087 degrees QTc Int : 458 ms SINUS RHYTHM WITH OCCASIONAL PREMATURE VENTRICULAR COMPLEXES VOLTAGE CRITERIA FOR LEFT VENTRICULAR HYPERTROPHY CANNOT RULE OUT SEPTAL INFARCT (CITED ON OR BEFORE 22-MAY-2020) ABNORMAL ECG WHEN COMPARED WITH ECG OF 22-MAY-2020 21:10, PREMATURE VENTRICULAR COMPLEXES ARE NOW PRESENT NONSPECIFIC T WAVE ABNORMALITY HAS REPLACED INVERTED T WAVES IN LATERAL LEADS Confirmed by LATASHA REYNOLDS MD ([id number]) on 05/23/2020 10:14:58 AM Referred By: Confirmed By:LATASHA REYNOLDS MD
--- NOTE | 2020-05-23 10:16 | EKG ---
Test Reason : Blood Pressure : / mmHG Vent. Rate : 084 BPM Atrial Rate : 084 BPM P-R Int : 166 ms QRS Dur : 092 ms QT Int : 364 ms P-R-T Axes : 088 065 090 degrees QTc Int : 430 ms NORMAL SINUS RHYTHM LEFT VENTRICULAR HYPERTROPHY WITH REPOLARIZATION ABNORMALITY CANNOT RULE OUT SEPTAL INFARCT , AGE UNDETERMINED ABNORMAL ECG NO PREVIOUS ECGS AVAILABLE Confirmed by LATASHA REYNOLDS MD ([id number]) on 05/23/2020 10:15:45 AM Referred By: Confirmed By:LATASHA REYNOLDS MD
--- NOTE | 2020-05-23 14:57 | CON.CARD ---
Cardiology Consult (text) - Consultation Consultation Note: Chief Complaint: Events noted, notes reviewed, unwitnessed fall, questionable syncopal episode, generalized weakness, evidence of demand ischemic injury- patient currently denies any chest discomfort or dyspnea History of Present Illness: Seen and examined on telemetry. Full consult dictated History was obtained from patient's son Eddie who was contacted via telephone Medications: Current Medications Generic Name Dose Route Start Last Admin Trade Name Freq PRN Reason Stop Dose Admin Enoxaparin Sodium 40 mg 05/23/20 10:00 05/23/20 09:46 Lovenox - SQ 40 mg DAILY SHERWIN Administration Sodium Chloride 1,000 mls @ 75 mls/hr 05/23/20 00:30 05/23/20 01:47 Normal Saline - IV 75 mls/hr ASDIR SHERWIN Administration Ceftriaxone Sodium 1 gm/ 50 mls @ 100 mls/hr 05/23/20 22:00 Dextrose IVPB Q24H SHERWIN Protocol Review of Systems Unable to obtain/patient is confused and disoriented Vital Signs: Last Vital Signs Temp Pulse Resp BP Pulse Ox 99.6 F 84 24 H 122/61 96 05/23/20 10:15 05/23/20 10:12 05/23/20 10:12 05/23/20 10:12 05/23/20 09:00 Intake & Output 05/20/20 05/21/20 05/22/20 05/23/20 23:59 23:59 23:59 23:59 Intake Total 250 Output Total 150 Balance 100 Weight 145 lb 145 lb 0.004 oz Neck: Supple Negative JVD Respiratory: Diminished Breath Sounds at the Bases Cardiovascular: S1 S2 Regular Rate Rhythm Gastrointestinal: Soft Benign Normal Bowel Sounds Ext: Negative Edema Labs: Troponin, BNP 05/22/20 05/23/20 05/23/20 21:00 01:30 05:40 Troponin I 0.37 H 0.44 H 0.39 H CBC, BMP 05/23/20 05:40 05/23/20 05:40 Hepatic Panel Total Bilirubin 1.9 mg/dL (0.2-1) H 05/23/20 05:40 Direct Bilirubin 0.5 mg/dL (0.0-0.2) H 05/23/20 05:40 AST 126 U/L (15-37) H 05/23/20 05:40 ALT 41 U/L (13-61) 05/23/20 05:40 Alkaline Phosphatase 73 U/L (45-117) 05/23/20 05:40 Albumin 3.3 g/dl (3.4-5.0) L 05/23/20 05:40 INR, PTT INR 1.28 (0.83-1.09) H 05/23/20 05:40 Assessment/Plan ASSESSMENT: 1. Unwitnessed fall unclear mechanical versus a syncopal episode 2. Coronary artery disease post percutaneous coronary intervention with evidence of demand ischemic injury angina pectoris (Patient has not had coronary artery bypass graft surgery as stated in the notes) 3. Diastolic left ventricular dysfunction with class 0 [place] [employer] classification left ventricular failure 4. Hypertensive cardiovascular disease 5. Hypercholesterolemia 6. Organic brain syndrome/dementia 7. History of lung surgery partial resection 8. History of chronic obstructive pulmonary disease 9. Urinary tract infection 10. Chronic kidney disease 11. Abnormal liver function testing PLAN: 1. Recommend the addition of beta-mandeep therapy unless it is absolutely contraindicated- Toprol-XL at 25 mg once daily 2. Recommend the addition of statin therapy unless it is absolutely contraindicated 3. Recommend initiation of Ecotrin therapy 4. Antibiotics as per the primary team 5. Echocardiography for evaluation of left ventricular systolic function/valvular function Planned treatment/evaluation was reviewed in detail with patient's son Eddie Wright MD
[2020-05-23] MEDS ORDERED: ALBUTEROL SO4 HFA INHALER IH PRN (16:11)
[2020-05-23] MEDS: metoPROLOL SUCCINATE 25 MG TAB.SR.24H (FP) PO SCH (18:02)
[2020-05-23] MEDS: ASPIRIN COATED 81 MG TABLET.EC PO SCH (18:02)
--- NOTE | 2020-05-23 18:48 | CONS ---
DATE OF CONSULTATION: 05/23/2020 REQUESTING PHYSICIAN: Hospitalist service. CHIEF COMPLAINT: Fall, elevated troponin-I, cardiovascular evaluation. History was predominantly obtained from patient's son who was contacted via telephone. 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 Patient does not have any recollection of the above-noted event. It is unclear if patient had a syncopal episode or if it was a mechanical fall. Patient currently is resting in bed in wrist restraints. Denies any chest discomfort. Denies any dyspnea. Patient does not report any orthopnea or paroxysmal nocturnal dyspnea. No additional history is obtainable. PAST MEDICAL HISTORY: Coronary artery disease, post percutaneous coronary intervention/stenting; angina pectoris; diastolic left ventricular dysfunction with clinical class 0 [place] [employer] classification left ventricular failure; hypertensive cardiovascular disease; hypercholesterolemia; organic brain syndrome/dementia; post lung surgery, partial resection; chronic obstructive pulmonary disease. SOCIAL HISTORY: Prior history of tobacco abuse. FAMILY HISTORY: Positive coronary artery disease. ALLERGIES: None reported. MEDICAL THERAPY AT HOME: Not known. REVIEW OF SYSTEMS: Not obtainable related to his underlying confusion/disorientation. PHYSICAL EXAMINATION: Vital Signs: Blood pressure is 122/61 mmHg. Pulse rate is 84 beats per minute. Head and Neck: Pupils equal and reactive to light and accommodation. Extraocular muscles are intact. Anicteric sclera. Negative JVD. No bruit appreciated. Chest: Diminished breath sounds at the bases bilaterally. Cardiovascular: S1, S2. Regular. Grade 2/6 systolic apical murmur. No clicks or gallops. Abdomen: Soft, benign. Normoactive bowel sounds. Extremities: Negative edema. Distal pulses 1+. Chest x-ray noted. Troponin-I levels were noted. Peak was 0.44. CBC with a white cell count 15.8, hemoglobin 14.7, platelet count 167. Basic metabolic profile revealed sodium 142, potassium 4.0, BUN 20.8, creatinine 1.2, glucose 66. AST 126. INR 1.28. ASSESSMENT: 1. Unwitnessed fall, unclear mechanical versus a syncopal episode. 2. Coronary artery disease, post percutaneous coronary intervention with evidence of demand ischemic injury, angina pectoris (patient has not had coronary artery bypass graft surgery as stated in some of the notes). 3. Diastolic left ventricular dysfunction with clinical class 0 [place] [employer] classification left ventricular failure. 4. Hypertensive cardiovascular disease. 5. Hypercholesterolemia. 6. Organic brain syndrome/dementia. 7. History of lung surgery, partial resection. 8. History of chronic obstructive pulmonary disease as per the chart. 9. Urinary tract infection. 10. Chronic kidney disease. 11. Abnormal liver function testing. PLAN: 1. Recommend the addition of beta-mandeep therapy unless it is absolutely contraindicated. Toprol-XL at 25 mg once daily. 2. Recommend the addition of statin therapy unless it is absolutely contraindicated. 3. Recommend initiation of Ecotrin therapy. 4. Antibiotics as per the primary team. 5. Echocardiography for evaluation of left ventricular systolic function and valvular function. Planned treatment/evaluation was reviewed in detail with patient's son. Thank you for your kind referral. TRU TRIVEDI M.D. [id number]
[2020-05-23] MEDS ORDERED: DEXTROSE 5%-WATER - 50 ML IVPB ONE (21:56)
[2020-05-23] MEDS ORDERED: cefTRIAXone SODIUM 1 GM VIAL ONE (21:56)
[2020-05-23] MEDS ORDERED: POLYETHYLENE GLYCOL 3350 119 GM BTL PO ONE (22:00)
[2020-05-23] MEDS: ATORVASTATIN CA 40 MG TABLET (FP) PO SCH (22:05)
[2020-05-23] MEDS: CEFTRIAXONE 1 GM in DEXTROSE 5%-WATER - 50 ML IVPB SCH (22:06)
[2020-05-24] MEDS: SODIUM CHLORIDE 1,000 ML IV SCH (01:10)
--- NOTE | 2020-05-24 06:45 | PN ---
Progress Note (short form) - Note Progress Note: Chief Complaint: Events noted, notes reviewed, resting in bed, confused and disoriented, denies any chest discomfort, denies any dyspnea History of Present Illness: Seen and examined on telemetry. Events noted, notes reviewed, resting in bed, confused and disoriented, denies any chest discomfort, denies any dyspnea Medications: Current Medications Generic Name Dose Route Start Last Admin Trade Name Freq PRN Reason Stop Dose Admin Albuterol Sulfate 2 puff 05/23/20 16:11 Ventolin Hfa Inhaler - IH Q6H PRN SHORTNESS OF BREATH Albuterol/Ipratropium 1 amp 05/23/20 15:28 Duoneb - NEB Q6H PRN SHORTNESS OF BREATH Aspirin 81 mg 05/23/20 15:15 05/23/20 18:02 Ecotrin - PO 81 mg DAILY SHERWIN Administration Atorvastatin Calcium 40 mg 05/23/20 22:00 05/23/20 22:05 Lipitor - PO 40 mg HS SHERWIN Administration Enoxaparin Sodium 40 mg 05/23/20 10:00 05/23/20 09:46 Lovenox - SQ 40 mg DAILY SHERWIN Administration Sodium Chloride 1,000 mls @ 75 mls/hr 05/23/20 00:30 05/24/20 01:10 Normal Saline - IV 75 mls/hr ASDIR SHERWIN Administration Ceftriaxone Sodium 1 gm/ 50 mls @ 100 mls/hr 05/23/20 22:00 05/23/20 22:06 Dextrose IVPB 100 mls/hr Q24H SHERWIN Administration Protocol Metoprolol Succinate 25 mg 05/23/20 15:15 05/23/20 18:02 Toprol Xl - PO 25 mg DAILY SEHRWIN Administration Multivitamins/Minerals/Vitamin C 1 tab 05/24/20 10:00 Tab-A-Vit - PO DAILY SHERWIN Polyethylene Glycol 17 gm 05/24/20 10:00 Miralax (For Daily Use) - PO DAILY SHERWIN Review of Systems Unable to obtain/confused and disoriented Vital Signs: Last Vital Signs Temp Pulse Resp BP Pulse Ox 99.2 F 76 24 H 104/51 L 97 05/24/20 06:00 05/24/20 06:00 05/24/20 06:00 05/24/20 06:00 05/24/20 06:00 Intake & Output 05/21/20 05/22/20 05/23/20 05/24/20 23:59 23:59 23:59 23:59 Intake Total 1550 400 Output Total 250 Balance 1300 400 Weight 145 lb 145 lb 0.004 oz Neck: Supple Negative JVD Respiratory: Diminished Breath Sounds at the Bases Cardiovascular: S1 S2 Regular Rate Rhythm Gastrointestinal: Soft Benign Normal Bowel Sounds Ext: Negative Edema Labs: CBC, BMP 05/24/20 07:00 05/24/20 07:00 Troponin, BNP 05/23/20 05:40 Troponin I 0.39 H CBC, BMP 05/23/20 05:40 05/23/20 05:40 Hepatic Panel Total Bilirubin 1.9 mg/dL (0.2-1) H 05/23/20 05:40 Direct Bilirubin 0.5 mg/dL (0.0-0.2) H 05/23/20 05:40 AST 126 U/L (15-37) H 05/23/20 05:40 ALT 41 U/L (13-61) 05/23/20 05:40 Alkaline Phosphatase 73 U/L (45-117) 05/23/20 05:40 Albumin 3.3 g/dl (3.4-5.0) L 05/23/20 05:40 INR, PTT INR 1.28 (0.83-1.09) H 05/23/20 05:40 Assessment/Plan ASSESSMENT: 1. Unwitnessed fall unclear mechanical versus a syncopal episode 2. Coronary artery disease post percutaneous coronary intervention with evidence of demand ischemic injury angina pectoris (Patient has not had coronary artery bypass graft surgery as stated in the notes) 3. Diastolic left ventricular dysfunction with class 0 [place] Heart Association classification left ventricular failure 4. Hypertensive cardiovascular disease 5. Hypercholesterolemia 6. Organic brain syndrome/dementia 7. History of lung surgery partial resection 8. History of chronic obstructive pulmonary disease 9. Urinary tract infection 10. Chronic kidney disease 11. Abnormal liver function testing PLAN: 1. Continue Toprol-XL therapy and dose titration as needed/as tolerated 2. Recommend the addition of SALOMON inhibitor or angiotensin receptor mandeep therapy unless it is absolutely contraindicated provided renal function is at baseline 3. Continue Lipitor therapy 4. Continue daily Ecotrin therapy 5. Antibiotics as per the primary team 6. Echocardiography for evaluation of left ventricular systolic function/valvular function Juana Wright MD
[2020-05-24 07:36] LABS: BASO % 0.3 % (0-2.0); EOS % 0.1 % (0-4.5); HEMATOCRIT 40.9 % (35.4-49); HEMOGLOBIN 13.4 GM/dL (11.7-16.9); LYMPH % 7.1 % (8-40); MCH 31.9 pg (25.7-33.7); MCHC 32.9 g/dl (32.0-35.9); MEAN CELL VOLUME 97.1 fl (80-96); MEAN PLT VOLUME 8.7 fl (7.5-11.1); MONO % 7.9 % (3.8-10.2); NEUT % 84.6 % (42.8-82.8); PLATELET COUNT 153 K/MM3 (134-434); RBC 4.21 M/mm3 (4.00-5.60); RDW 13.7 % (11.9-15.9); WHITE BLOOD COUNT 13.8 K/mm3 (4.0-10.0)
--- NOTE | 2020-05-24 07:54 | PN ---
Progress Note, Physician History of Present Illness: 79 y.o. 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 - Current Medication List Current Medications: Active Medications Albuterol Sulfate (Ventolin Hfa Inhaler -) 2 puff IH Q6H PRN PRN Reason: SHORTNESS OF BREATH Albuterol/Ipratropium (Duoneb -) 1 amp NEB Q6H PRN PRN Reason: SHORTNESS OF BREATH Aspirin (Ecotrin -) 81 mg PO DAILY [facility] Last Admin: 05/23/20 18:02 Dose: 81 mg Documented by: Atorvastatin Calcium (Lipitor -) 40 mg PO HS [facility] Last Admin: 05/23/20 22:05 Dose: 40 mg Documented by: Enoxaparin Sodium (Lovenox -) 40 mg SQ DAILY [facility] Last Admin: 05/23/20 09:46 Dose: 40 mg Documented by: Sodium Chloride (Normal Saline -) 1,000 mls @ 75 mls/hr IV ASDIR [facility] Last Admin: 05/24/20 01:10 Dose: 75 mls/hr Documented by: Ceftriaxone Sodium 1 gm/ (Dextrose) 50 mls @ 100 mls/hr IVPB Q24H [facility]; Protocol Last Admin: 05/23/20 22:06 Dose: 100 mls/hr Documented by: Metoprolol Succinate (Toprol Xl -) 25 mg PO DAILY [facility] Last Admin: 05/23/20 18:02 Dose: 25 mg Documented by: Multivitamins/Minerals/Vitamin C (Tab-A-Vit -) 1 tab PO DAILY [facility] Polyethylene Glycol (Miralax (For Daily Use) -) 17 gm PO DAILY [facility] - Objective Vital Signs: Vital Signs Temperature 99.2 F 05/24/20 06:00 Pulse Rate 76 05/24/20 06:00 Respiratory Rate 24 H 05/24/20 06:00 Blood Pressure 104/51 L 05/24/20 06:00 O2 Sat by Pulse Oximetry (%) 97 05/24/20 06:00 Labs: INR, PTT INR 1.28 (0.83-1.09) H 05/23/20 05:40 Problem List - Problems (1) COPD (chronic obstructive pulmonary disease) Code(s): J44.9 - CHRONIC OBSTRUCTIVE PULMONARY DISEASE, UNSPECIFIED (2) HTN (hypertension) Code(s): I10 - ESSENTIAL (PRIMARY) HYPERTENSION (3) CAD (coronary artery disease) Code(s): I25.10 - ATHSCL HEART DISEASE OF [place] CORONARY ARTERY W/O ANG PCTRS (4) H/O pneumonectomy Code(s): Z98.890 - OTHER SPECIFIED POSTPROCEDURAL STATES; Z90.2 - ACQUIRED ABSENCE OF LUNG [PART OF] (5) S/P CABG (coronary artery bypass graft) Code(s): Z95.1 - PRESENCE OF AORTOCORONARY BYPASS GRAFT (6) Prophylactic measure Code(s): Z29.9 - ENCOUNTER FOR PROPHYLACTIC MEASURES, UNSPECIFIED (7) Acute metabolic encephalopathy Code(s): G93.41 - METABOLIC ENCEPHALOPATHY (8) Rhabdomyolysis Code(s): M62.82 - RHABDOMYOLYSIS (9) Seborrheic keratosis Code(s): L82.1 - OTHER SEBORRHEIC KERATOSIS (10) Fall Code(s): W19.XXXA - UNSPECIFIED FALL, INITIAL ENCOUNTER Qualifiers: Encounter type: initial encounter Qualified Code(s): W19.XXXA - Unspecified fall, initial encounter (11) UTI (urinary tract infection) Code(s): N39.0 - URINARY TRACT INFECTION, SITE NOT SPECIFIED Qualifiers: Urinary tract infection type: site unspecified Hematuria presence: with hematuria Qualified Code(s): N39.0 - Urinary tract infection, site not specified; R31.9 - Hematuria, unspecified (12) Constipation Code(s): K59.00 - CONSTIPATION, UNSPECIFIED (13) Suspected COVID-19 virus infection Code(s): Z20.828 - CONTACT W AND EXPOSURE TO OTH VIRAL COMMUNICABLE DISEASES (14) ACS (acute coronary syndrome) Code(s): I24.9 - ACUTE ISCHEMIC HEART DISEASE, UNSPECIFIED (15) Weakness Code(s): R53.1 - WEAKNESS (16) Moderate protein-calorie malnutrition Code(s): E44.0 - MODERATE PROTEIN-CALORIE MALNUTRITION
[2020-05-24 08:22] LABS: ALBUMIN 2.9 g/dl (3.4-5.0); BILIRUBIN,TOTAL 0.9 mg/dL (0.2-1); BLOOD UREA NITROGEN 20.4 mg/dL (7-18); CALCIUM 8.4 mg/dL (8.5-10.1); MAGNESIUM 2.1 mg/dL (1.8-2.4); POTASSIUM 4.2 mmol/L (3.5-5.1); TOT PROT 6.3 g/dl (6.4-8.2)
[2020-05-24] MEDS: POLYETHYLENE GLYCOL 3350 119 GM BTL PO SCH (10:52)
[2020-05-24] MEDS: ASPIRIN COATED 81 MG TABLET.EC PO SCH (10:52)
[2020-05-24] MEDS: metoPROLOL SUCCINATE 25 MG TAB.SR.24H (FP) PO SCH (10:52)
[2020-05-24] MEDS: ENOXAPARIN NA (PORCINE) 40 MG/0.4 ML DISP.SYRIN SQ SCH (10:52)
[2020-05-24] MEDS: MULTIVITAMINS (DAILY MVI) TABLET (FP) PO SCH (10:52)
[2020-05-24] MEDS ORDERED: ALBUTEROL SO4 2.5/IPRATROPIUM 0.5 INH SOL 3 ML VIAL.NEB. NEB PRN (13:05)
--- NOTE | 2020-05-24 13:39 | PN ---
Physical Exam: SUBJECTIVE: Patient seen and examined, NAD OBJECTIVE: Vital Signs Period Temp Pulse Resp BP Sys/Zamudio Pulse Ox Last 24 Hr 99.2 F-99.5 F 68-92 22-24 91-138/48-82 95-97 GENERAL: The patient is awake, alert, and fully oriented, in no acute distress. HEAD: Normal with no signs of trauma. EYES: PERRL, extraocular movements intact, sclera anicteric, conjunctiva clear. No ptosis. ENT: Ears normal, nares patent, oropharynx clear without exudates, moist mucous membranes. NECK: Trachea midline, full range of motion, supple. LUNGS: Breath sounds equal, clear to auscultation bilaterally, no wheezes, no crackles, no accessory muscle use. HEART: Regular rate and rhythm, S1, S2 without murmur, rub or gallop. ABDOMEN: Soft, nontender, nondistended, normoactive bowel sounds, no guarding, no rebound, no hepatosplenomegaly, no masses. EXTREMITIES: 2+ pulses, warm, well-perfused, no edema. NEUROLOGICAL: Cranial nerves II through XII grossly intact. Normal speech, gait not observed. PSYCH: Normal mood, normal affect. SKIN: Warm, dry, normal turgor, no rashes or lesions noted Laboratory Results - last 24 hr 05/23/20 05/24/20 05/24/20 08:00 07:00 07:00 WBC 13.8 H RBC 4.21 Hgb 13.4 Hct 40.9 MCV 97.1 H MCH 31.9 MCHC 32.9 RDW 13.7 Plt Count 153 MPV 8.7 Absolute Neuts (auto) 11.6 H Neutrophils % 84.6 H Lymphocytes % 7.1 L D Monocytes % 7.9 D Eosinophils % 0.1 D Basophils % 0.3 Nucleated RBC % 0 Sodium 143 Potassium 4.2 Chloride 110 H Carbon Dioxide 28 Anion Gap 5 L BUN 20.4 H Creatinine 1.0 Est GFR (CKD-EPI)AfAm 82.02 Est GFR (CKD-EPI)NonAf 70.77 Random Glucose 91 Calcium 8.4 L Magnesium 2.1 Total Bilirubin 0.9 AST 107 H ALT 46 Alkaline Phosphatase 67 Creatine Kinase Creatine Kinase Index CK-MB (CK-2) Total Protein 6.3 L Albumin 2.9 L COVID-19 (NARESH) Not detected 05/24/20 07:00 WBC RBC Hgb Hct MCV MCH MCHC RDW Plt Count MPV Absolute Neuts (auto) Neutrophils % Lymphocytes % Monocytes % Eosinophils % Basophils % Nucleated RBC % Sodium Potassium Chloride Carbon Dioxide Anion Gap BUN Creatinine Est GFR (CKD-EPI)AfAm Est GFR (CKD-EPI)NonAf Random Glucose Calcium Magnesium Total Bilirubin AST ALT Alkaline Phosphatase Creatine Kinase 1728 H Creatine Kinase Index 0.2 CK-MB (CK-2) 3.6 Total Protein Albumin COVID-19 (NARESH) Active Medications Generic Name Dose Route Start Last Admin Trade Name Freq PRN Reason Stop Dose Admin Albuterol Sulfate 2 puff 05/23/20 16:11 Ventolin Hfa Inhaler - IH Q6H PRN SHORTNESS OF BREATH Albuterol/Ipratropium 1 amp 05/24/20 13:05 Duoneb - NEB Q6H PRN SHORTNESS OF BREATH Aspirin 81 mg 05/23/20 15:15 05/24/20 10:52 Ecotrin - PO 81 mg DAILY SHERWIN Administration Atorvastatin Calcium 40 mg 05/23/20 22:00 05/23/20 22:05 Lipitor - PO 40 mg HS SHERWIN Administration Enoxaparin Sodium 40 mg 05/23/20 10:00 05/24/20 10:52 Lovenox - SQ 40 mg DAILY SHERWIN Administration Sodium Chloride 1,000 mls @ 75 mls/hr 05/23/20 00:30 05/24/20 01:10 Normal Saline - IV 75 mls/hr ASDIR SHERWIN Administration Ceftriaxone Sodium 1 gm/ 50 mls @ 100 mls/hr 05/23/20 22:00 05/23/20 22:06 Dextrose IVPB 100 mls/hr Q24H SHERWIN Administration Protocol Metoprolol Succinate 25 mg 05/23/20 15:15 05/24/20 10:52 Toprol Xl - PO 25 mg DAILY SHERWIN Administration Multivitamins/Minerals/Vitamin C 1 tab 05/24/20 10:00 05/24/20 10:52 Tab-A-Vit - PO 1 tab DAILY SHERWIN Administration Polyethylene Glycol 17 gm 05/24/20 10:00 05/24/20 10:52 Miralax (For Daily Use) - PO 17 gm DAILY SHERWIN Administration ASSESSMENT/PLAN: Problems #ACS (acute coronary syndrome) Assessment/Plan: trop 0.37> 0.44>.39 EKG: ST elevation in V3. TWI V5 & V6 no chest pain currently fatou on tele cardioogy following c/w asa/BB/statin TTE ordered Code(s): I24.9 - ACUTE ISCHEMIC HEART DISEASE, UNSPECIFIED # COPD (chronic obstructive pulmonary disease) Assessment/Plan: Supplemental O2 to maintain SPO2 >90% dup nebs prn Code(s): J44.9 - CHRONIC OBSTRUCTIVE PULMONARY DISEASE, UNSPECIFIED # HTN (hypertension) Assessment/Plan: normotensive metoprolol as per cardiology with hold parameters Code(s): I10 - ESSENTIAL (PRIMARY) HYPERTENSION # CAD (coronary artery disease) Assessment/Plan: c/w asa,statin,betablocker appreciate cardiology consultation Code(s): I25.10 - ATHSCL HEART DISEASE OF [place] CORONARY ARTERY W/O ANG PCTRS #H/O pneumonectomy Code(s): Z98.890 - OTHER SPECIFIED POSTPROCEDURAL STATES; Z90.2 - ACQUIRED ABSENCE OF LUNG [PART OF] # S/P CABG (coronary artery bypass graft) Code(s): Z95.1 - PRESENCE OF AORTOCORONARY BYPASS GRAFT # Prophylactic measure Assessment/Plan: FEN Fluids: adequate PO intake Electrolytes: monitor & replete as needed Nutrition: low sodium diet DVT moderate risk sq heparin Dispo Maintain as inpatient full code discharge planning to home vs snf Code(s): Z29.9 - ENCOUNTER FOR PROPHYLACTIC MEASURES, UNSPECIFIED # Acute metabolic encephalopathy Assessment/Plan: multifactorial, UTI, advanced age HCT negative for acute pathology c/w abx PT supportive care Code(s): G93.41 - METABOLIC ENCEPHALOPATHY # Rhabdomyolysis Assessment/Plan: CK 2392>3647 c/w IVF c/t trend Code(s): M62.82 - RHABDOMYOLYSIS # Seborrheic keratosis Code(s): L82.1 - OTHER SEBORRHEIC KERATOSIS # Fall Assessment/Plan: PT ordered fall precautions monitor on tele to r/o cardiac involvement TTT ordered Code(s): W19.XXXA - UNSPECIFIED FALL, INITIAL ENCOUNTER Qualifiers: Encounter type: initial encounter Qualified Code(s): W19.XXXA - Unspecified fall, initial encounter # UTI (urinary tract infection) Assessment/Plan: +UTI UCx lactose bacilli c/w ceftriaxone frequent toileting Code(s): N39.0 - URINARY TRACT INFECTION, SITE NOT SPECIFIED Qualifiers: Urinary tract infection type: site unspecified Hematuria presence: with hematuria Qualified Code(s): N39.0 - Urinary tract infection, site not specified; R31.9 - Hematuria, unspecified #Constipation Assessment/Plan: retained stool seen on CT miralax daily Code(s): K59.00 - CONSTIPATION, UNSPECIFIED # Suspected COVID-19 virus infection Assessment/Plan: COVID Suspicion low On 2L NC no finding on CT strict airborne/droplet precautions until resulted Code(s): Z20.828 - CONTACT W AND EXPOSURE TO OTH VIRAL COMMUNICABLE DISEASES # Weakness Assessment/Plan: PT fall precautions lives home with -will discuss with family possible STR if does not improve Code(s): R53.1 - WEAKNESS #Moderate protein-calorie malnutrition Assessment/Plan: as evidenced by BMI 22, temporal and muscle wasting, generalized weakness supplements with meals performance improvement coordinator consult [laced Code(s): E44.0 - MODERATE PROTEIN-CALORIE MALNUTRITION Visit type - Emergency Visit Emergency Visit: Yes ED Registration Date: 05/22/20 Care time: The patient presented to the Emergency Department on the above date and was hospitalized for further evaluation of their emergent condition. - New Patient This patient is new to me today: Yes Date on this admission: 05/24/20 - Critical Care Critical Care patient: Yes Total Critical Care Time (in minutes): 15 - Medication Review Med list reviewed for High Risk Meds patients 65 and older: No
[2020-05-24] MEDS ORDERED: cefTRIAXone SODIUM 1 GM VIAL ONE (20:47)
[2020-05-24] MEDS ORDERED: DEXTROSE 5%-WATER - 50 ML IVPB ONE (20:47)
[2020-05-24] MEDS: CEFTRIAXONE 1 GM in DEXTROSE 5%-WATER - 50 ML IVPB SCH (21:23)
[2020-05-24] MEDS: ATORVASTATIN CA 40 MG TABLET (FP) PO SCH (21:23)
[2020-05-25] MEDS ORDERED: ACETAMINOPHEN 1000 MG/100 ML VIAL (NON FORMULARY) IVPB ONE (02:37)
[2020-05-25] MEDS ORDERED: ACETAMINOPHEN 325 MG TABLET (FP) PO ONE (02:43)
[2020-05-25 06:57] LABS: BASO % 0.5 % (0-2.0); EOS % 0.1 % (0-4.5); HEMATOCRIT 36.3 % (35.4-49); HEMOGLOBIN 12.2 GM/dL (11.7-16.9); LYMPH % 5.5 % (8-40); MCH 32.5 pg (25.7-33.7); MCHC 33.7 g/dl (32.0-35.9); MEAN CELL VOLUME 96.5 fl (80-96); MEAN PLT VOLUME 9.1 fl (7.5-11.1); MONO % 6.3 % (3.8-10.2); NEUT % 87.6 % (42.8-82.8); PLATELET COUNT 131 K/MM3 (134-434); RBC 3.76 M/mm3 (4.00-5.60); RDW 13.8 % (11.9-15.9); WHITE BLOOD COUNT 9.5 K/mm3 (4.0-10.0)
[2020-05-25 07:20] LABS: ALBUMIN 2.4 g/dl (3.4-5.0); BILIRUBIN,TOTAL 0.6 mg/dL (0.2-1); CALCIUM 7.7 mg/dL (8.5-10.1); CREATININE 0.8 mg/dL (0.55-1.3); MAGNESIUM 1.9 mg/dL (1.8-2.4); POTASSIUM 3.4 mmol/L (3.5-5.1); TOT PROT 5.4 g/dl (6.4-8.2)
[2020-05-25] MEDS ORDERED: POTASSIUM CHLORIDE TABS 20 MEQ TABLET.ER (FP) PO ONE (07:45)
--- NOTE | 2020-05-25 07:58 | PN ---
Progress Note (short form) - Note Progress Note: S: Pt febrile to 100.6 overnight. Otherwise no other acute events. Pt denies any chest pain or discomfort currently. Echo to be performed today. Episodes of physiologic bradycardia overnight while sleeping. O: Vital Signs Temperature 98.6 F 05/25/20 06:00 Pulse Rate 61 05/25/20 06:00 Respiratory Rate 18 05/25/20 06:00 Blood Pressure 96/66 05/25/20 06:00 O2 Sat by Pulse Oximetry (%) 99 05/24/20 22:00 PE: Gen: NAD, awake, alert, slight pallor noted HEENT: Nc/AT, glasses intact, EOMI, MARGARITA, dry mucosa Neck: No JVD, no carotid bruits LUNG: CTA b/l without wheezes or rales, on RA 99% CARD: RRR, LUSB 2/6 systolic murmur noted without radiation. S1 and S2 present ABD: Soft, NT/ND, normoactive BS, no guarding, no masses appreciated EXT: No edema noted, strong intact pulses b/l CBC, BMP 05/25/20 06:10 05/25/20 06:10 Microbiology 05/22/20 21:00 Blood - Peripheral Venous Blood Culture - Preliminary NO GROWTH OBTAINED AFTER 48 HOURS, INCUBATION TO CONTINUE FOR 3 DAYS. 05/22/20 21:00 Blood - Peripheral Venous Blood Culture - Preliminary NO GROWTH OBTAINED AFTER 48 HOURS, INCUBATION TO CONTINUE FOR 3 DAYS. 05/22/20 21:10 Urine - Urine Clean Catch Urine Culture - Preliminary Lactose Fermenting Neg Bacilli A/P: Uncomplicated cystitis Acute coronary syndrome Mechanical fall Rhabdomyolysis Hypokalemia Protein Malnutrition --Patient on day 3 of Rocephin; fever noted last night --If continue to be febrile will investigate other sources --Await sensitivities of urine culture; Bcx without growth --Can switch to oral ABX for total 5 days if remains afebrile and once sensitivities return --ACS noted with acute ECG changes (V3 isolated ST elevation with TWI in V5-6) --Cardiology on board --Would ideally benefit from ACEi or ARB therapy, however BP has been low normals and would risk becoming hypotensive --Continue Toprol XL --Echocardiogram to be performed today --Continue telemetry monitoring --Noted mechanical fall, however investigation into cardiac etiology --Fall precuations --PT assessment today --Discussed prior with family member: would like to pursue SNF for STR if indicated --Downtrending CK --Continue gentle IVF (NS@75cc/hr) --repeat CK today FEN: Fluids: as above Electrolyte abnormalities: Hypokalemia (repleted kdur 40mEq) Nutrition: Ensure supplementation for calorie malnutrition; sodium controlled diet PPX: DVT - Lovenox 40 SQ Dispo: Continue telemetry monitoring; plan as above DO Delmy Hoang
--- NOTE | 2020-05-25 09:32 | PN ---
Progress Note, Physician History of Present Illness: No events on telemetry, denies recurrent near or true syncope. - Current Medication List Current Medications: Active Medications Albuterol Sulfate (Ventolin Hfa Inhaler -) 2 puff IH Q6H PRN PRN Reason: SHORTNESS OF BREATH Albuterol/Ipratropium (Duoneb -) 1 amp NEB Q6H PRN PRN Reason: SHORTNESS OF BREATH Aspirin (Ecotrin -) 81 mg PO DAILY [facility] Last Admin: 05/24/20 10:52 Dose: 81 mg Documented by: Atorvastatin Calcium (Lipitor -) 40 mg PO HS [facility] Last Admin: 05/24/20 21:23 Dose: 40 mg Documented by: Enoxaparin Sodium (Lovenox -) 40 mg SQ DAILY [facility] Last Admin: 05/24/20 10:52 Dose: 40 mg Documented by: Sodium Chloride (Normal Saline -) 1,000 mls @ 75 mls/hr IV ASDIR [facility] Last Admin: 05/24/20 01:10 Dose: 75 mls/hr Documented by: Ceftriaxone Sodium 1 gm/ (Dextrose) 50 mls @ 100 mls/hr IVPB Q24H [facility]; Protocol Last Admin: 05/24/20 21:23 Dose: 100 mls/hr Documented by: Metoprolol Succinate (Toprol Xl -) 25 mg PO DAILY [facility] Last Admin: 05/24/20 10:52 Dose: 25 mg Documented by: Multivitamins/Minerals/Vitamin C (Tab-A-Vit -) 1 tab PO DAILY [facility] Last Admin: 05/24/20 10:52 Dose: 1 tab Documented by: Polyethylene Glycol (Miralax (For Daily Use) -) 17 gm PO DAILY [facility] Last Admin: 05/24/20 10:52 Dose: 17 gm Documented by: - Objective Vital Signs: Vital Signs Temperature 98.0 F 05/25/20 08:20 Pulse Rate 61 05/25/20 06:00 Respiratory Rate 18 05/25/20 06:00 Blood Pressure 96/66 05/25/20 06:00 O2 Sat by Pulse Oximetry (%) 95 05/25/20 08:14 Constitutional: Yes: No Distress, Calm Neck: Yes: Supple Cardiovascular: Yes: Regular Rate and Rhythm Respiratory: Yes: Regular, CTA Bilaterally, On Nasal O2 Gastrointestinal: Yes: Normal Bowel Sounds, Soft, Abdomen, Obese Edema: No Labs: CBC, BMP 05/25/20 06:10 05/25/20 06:10 INR, PTT INR 1.28 (0.83-1.09) H 05/23/20 05:40 - ....Imaging EKG: Report Reviewed (Tele: No sig pauses or bradyarrhythmia) Problem List - Problems (1) CAD (coronary artery disease) Code(s): I25.10 - ATHSCL HEART DISEASE OF [place] CORONARY ARTERY W/O ANG PCTRS Qualifiers: Coronary Disease-Associated Artery/Lesion type: [place] artery [place] vs. transplanted heart: [place] heart Associated angina: without angina Qualified Code(s): I25.10 - Atherosclerotic heart disease of [place] coronary artery without angina pectoris (2) COPD (chronic obstructive pulmonary disease) Code(s): J44.9 - CHRONIC OBSTRUCTIVE PULMONARY DISEASE, UNSPECIFIED Qualifiers: COPD type: unspecified COPD Qualified Code(s): J44.9 - Chronic obstructive pulmonary disease, unspecified (3) HTN (hypertension) Code(s): I10 - ESSENTIAL (PRIMARY) HYPERTENSION Qualifiers: Hypertension type: essential hypertension Qualified Code(s): I10 - Essential (primary) hypertension (4) Diastolic dysfunction Code(s): I51.89 - OTHER ILL-DEFINED HEART DISEASES (5) Demand ischemia Code(s): I24.8 - OTHER FORMS OF ACUTE ISCHEMIC HEART DISEASE (6) Hyperlipidemia Code(s): E78.5 - HYPERLIPIDEMIA, UNSPECIFIED Qualifiers: Hyperlipidemia type: pure hypercholesterolemia Qualified Code(s): E78.00 - Pure hypercholesterolemia, unspecified; E78.0 - Pure hypercholesterolemia Assessment/Plan 1. Unwitnessed fall unclear mechanical versus a syncopal episode 2. Coronary artery disease post percutaneous coronary intervention with evidence of demand ischemic injury angina pectoris (Patient has not had coronary artery bypass graft surgery as stated in the notes) 3. Diastolic left ventricular dysfunction with class 0 [place] Heart Association classification left ventricular failure 4. Hypertensive cardiovascular disease 5. Hypercholesterolemia 6. Organic brain syndrome/dementia 7. History of lung surgery partial resection 8. History of chronic obstructive pulmonary disease 9. Urinary tract infection 10. Chronic kidney disease 11. Abnormal liver function testing 12. Fever on empiric abx PLAN: 1. Continue Toprol-XL 25 qd and dose titration as needed/as tolerated, troponins have plateaued 2. Recommend the addition of SALOMON inhibitor or angiotensin receptor mandeep therapy unless it is absolutely contraindicated provided renal function is at baseline 3. Continue Lipitor 40 qd 4. Continue daily Ecotrin 81 qd, replete K 5. Antibiotics as per the primary team 6. Echocardiography for evaluation of left ventricular systolic functio n/valvular function 7. PT->gait training
[2020-05-25] MEDS: SODIUM CHLORIDE 1,000 ML IV SCH (09:33)
[2020-05-25] MEDS: metoPROLOL SUCCINATE 25 MG TAB.SR.24H (FP) PO SCH (09:37)
[2020-05-25] MEDS: MULTIVITAMINS (DAILY MVI) TABLET (FP) PO SCH (09:37)
[2020-05-25] MEDS: ASPIRIN COATED 81 MG TABLET.EC PO SCH (09:37)
[2020-05-25] MEDS: POLYETHYLENE GLYCOL 3350 119 GM BTL PO SCH (09:38)
[2020-05-25] MEDS: ENOXAPARIN NA (PORCINE) 40 MG/0.4 ML DISP.SYRIN SQ SCH (09:41)
--- NOTE | 2020-05-25 15:27 | ECHO ---
Name: LENI MARICRUZ Exam:Adult Echocardiogram Study Date: 05/25/2020 10:05 AM Age: 79 yrs Reason For Study: ISCHEMIA Height: 67 in Weight: 145 lb BSA: 1.8 m2 MMode/2D Measurements & Calculations IVSd: 1.1 cm Ao root diam: 3.7 cm LVIDd: 3.9 cm LA dimension: 2.6 cm LVIDs: 2.6 cm LVPWd: 1.0 cm EDV(Teich): 65.7 ml LVOT diam: 2.0 cm ESV(Teich): 24.3 ml LAV (MOD-bp): 37.3 ml Doppler Measurements & Calculations MV E max dony: 55.5 cm/sec Ao V2 max: 78.5 cm/sec MV A max dony: 84.6 cm/sec Ao max P.5 mmHg MV E/A: 0.66 MV dec time: 0.23 sec DEYSI(V,D): 2.3 cm2 LV V1 max P.3 mmHg TR max dony: 228.0 cm/sec LV V1 max: 58.0 cm/sec TR max P.0 mmHg PA V2 max: 96.9 cm/sec Med Peak E' Dony: 5.0 cm/sec PA max P.8 mmHg Med E/e': 11.1 Lat Peak E' Dony: 6.3 cm/sec Lat E/e': 8.8 PI Vmax: 132.0 cm/sec Procedure A complete two-dimensional transthoracic echocardiogram was performed (2D, M-mode, Doppler and color flow Doppler). Left Ventricle The left ventricle is normal in size. Left ventricular systolic function is normal. Ejection Fraction = 60- 65%. Grade I diastolic dysfunction, (abnormal relaxation pattern). No regional wall motion abnormalit ies noted. Right Ventricle The right ventricle is normal size. The right ventricular systolic function is normal. Atria The left atrial size is normal. Right atrial size is normal. Mitral Valve There is mild mitral annular calcification. There is mild mitral regurgitation. Tricuspid Valve The tricuspid valve is normal in structure and function. There is mild tricuspid regurgitation. PASP is at least 29 mmHg if RA pressure is assumed 3 mmHg. Aortic Valve There is mild aortic sclerosis.;. No aortic regurgitation is present. Pulmonic Valve The pulmonic valve is not well visualized. Great Vessels The aortic root is normal size. Pericardium/Pleura There is no pericardial effusion. Interpretation Summary The left ventricle is normal in size. Left ventricular systolic function is normal. No regional wall motion abnormalities noted. Ejection Fraction = 60-65%. Grade I diastolic dysfunction, (abnormal relaxation pattern). There is mild mitral annular calcification. There is mild mitral regurgitation. There is mild tricuspid regurgitation. PASP is at least 29 mmHg if RA pressure is assumed 3 mmHg There is mild aortic sclerosis. There is no pericardial effusion. Edwin Leung MD 05/25/2020 03:26 PM
[2020-05-25] MEDS: ACETAMINOPHEN 1000 MG/100 ML VIAL (NON FORMULARY) IVPB PRN ×2 (16:54→22:25)
[2020-05-25] MEDS ORDERED: cefTRIAXone SODIUM 1 GM VIAL ONE (20:37)
[2020-05-25] MEDS ORDERED: DEXTROSE 5%-WATER - 50 ML IVPB ONE (20:38)
[2020-05-25] MEDS: ATORVASTATIN CA 40 MG TABLET (FP) PO SCH (22:01)
[2020-05-25] MEDS: CEFTRIAXONE 1 GM in DEXTROSE 5%-WATER - 50 ML IVPB SCH (22:01)
--- NOTE | 2020-05-26 06:27 | PN ---
Progress Note (short form) - Note Progress Note: Chief Complaint: Events noted, notes reviewed, resting in bed, remains confused and disoriented, denies any chest discomfort, denies any dyspnea History of Present Illness: Seen and examined on telemetry. Events noted, notes reviewed, resting in bed, remains confused and disoriented, denies any chest discomfort, denies any dyspnea Echocardiography revealed normal left ventricular size and systolic function with estimated LVEF between 60-65%, grade I diastolic dysfunction, mild mitral valve regurgitation, mild tricuspid valve regurgitation Medications: Current Medications Generic Name Dose Route Start Last Admin Trade Name Freq PRN Reason Stop Dose Admin Acetaminophen 1,000 mg 05/25/20 16:30 05/25/20 22:25 Ofirmev Injection - IVPB 05/26/20 16:30 1,000 mg Q6H PRN Administration PAIN LEVEL 6-10 Albuterol Sulfate 2 puff 05/23/20 16:11 Ventolin Hfa Inhaler - IH Q6H PRN SHORTNESS OF BREATH Albuterol/Ipratropium 1 amp 05/24/20 13:05 Duoneb - NEB Q6H PRN SHORTNESS OF BREATH Aspirin 81 mg 05/23/20 15:15 05/25/20 09:37 Ecotrin - PO 81 mg DAILY SHERWIN Administration Atorvastatin Calcium 40 mg 05/23/20 22:00 05/25/20 22:01 Lipitor - PO 40 mg HS SHERWIN Administration Enoxaparin Sodium 40 mg 05/23/20 10:00 05/25/20 09:41 Lovenox - SQ 40 mg DAILY SHERWIN Administration Sodium Chloride 1,000 mls @ 75 mls/hr 05/23/20 00:30 05/25/20 09:33 Normal Saline - IV 75 mls/hr ASDIR SHERWIN Administration Ceftriaxone Sodium 1 gm/ 50 mls @ 100 mls/hr 05/23/20 22:00 05/25/20 22:01 Dextrose IVPB 100 mls/hr Q24H SHERWIN Administration Protocol Metoprolol Succinate 25 mg 05/23/20 15:15 05/25/20 09:37 Toprol Xl - PO 25 mg DAILY SHERWIN Administration Multivitamins/Minerals/Vitamin C 1 tab 05/24/20 10:00 05/25/20 09:37 Tab-A-Vit - PO 1 tab DAILY SHERWIN Administration Polyethylene Glycol 17 gm 05/24/20 10:00 05/25/20 09:38 Miralax (For Daily Use) - PO 17 gm DAILY SHERWIN Administration Review of Systems Unable to obtain/confused and disoriented Vital Signs: Last Vital Signs Temp Pulse Resp BP Pulse Ox 97.2 F L 76 20 118/59 L 98 05/26/20 06:00 05/26/20 06:00 05/26/20 06:00 05/26/20 06:00 05/25/20 22:00 Intake & Output 05/23/20 05/24/20 05/25/20 05/26/20 23:59 23:59 23:59 23:59 Intake Total 1550 400 200 Output Total 250 Balance 1300 400 200 Weight 145 lb 0.004 oz 145 lb Neck: Supple Negative JVD Respiratory: Diminished Breath Sounds at the Bases Cardiovascular: S1 S2 Regular Rate Rhythm Gastrointestinal: Soft Benign Normal Bowel Sounds Ext: Negative Edema Labs: CBC, BMP 05/26/20 05:40 05/26/20 05:40 CBC, BMP 05/25/20 06:10 05/25/20 06:10 Hepatic Panel Total Bilirubin 0.6 mg/dL (0.2-1) 05/25/20 06:10 Direct Bilirubin 0.5 mg/dL (0.0-0.2) H 05/23/20 05:40 AST 80 U/L (15-37) H 05/25/20 06:10 ALT 44 U/L (13-61) 05/25/20 06:10 Alkaline Phosphatase 62 U/L (45-117) 05/25/20 06:10 Albumin 2.4 g/dl (3.4-5.0) L 05/25/20 06:10 INR, PTT INR 1.28 (0.83-1.09) H 05/23/20 05:40 Assessment/Plan ASSESSMENT: 1. Unwitnessed fall unclear mechanical versus a syncopal episode 2. Coronary artery disease post percutaneous coronary intervention with negrita dence of demand ischemic injury angina pectoris (Patient has not had coronary artery bypass graft surgery as stated in the notes) 3. Diastolic left ventricular dysfunction with class 0 [place] [employer] classification left ventricular failure 4. Hypertensive cardiovascular disease 5. Hypercholesterolemia 6. 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 History of lung surgery partial resection 8. History of chronic obstructive pulmonary disease 9. Urinary tract infection 10. Chronic kidney disease 11. Abnormal liver function testing PLAN: 1. Continue Toprol-XL therapy and dose titration as needed/as tolerated 2. Recommend the addition of [place] inhibitor or angiotensin receptor mandeep therapy unless it is absolutely contraindicated provided renal function is at baseline 3. Continue Lipitor therapy 4. Continue daily Ecotrin therapy 5. Antibiotics as per the primary team Juana Wright MD
[2020-05-26 06:46] LABS: BASO % 0.2 % (0-2.0); HEMATOCRIT 36.6 % (35.4-49); HEMOGLOBIN 11.9 GM/dL (11.7-16.9); MCH 31.7 pg (25.7-33.7); MCHC 32.5 g/dl (32.0-35.9); MEAN CELL VOLUME 97.5 fl (80-96); MEAN PLT VOLUME 8.8 fl (7.5-11.1); MONO % 6.2 % (3.8-10.2); NEUT % 89.6 % (42.8-82.8); PLATELET COUNT 125 K/MM3 (134-434); RBC 3.76 M/mm3 (4.00-5.60); WHITE BLOOD COUNT 14.8 K/mm3 (4.0-10.0)
[2020-05-26 07:20] LABS: ALBUMIN 2.3 g/dl (3.4-5.0); BILIRUBIN,TOTAL 0.6 mg/dL (0.2-1); CALCIUM 7.5 mg/dL (8.5-10.1); CREATININE 0.9 mg/dL (0.55-1.3); MAGNESIUM 1.9 mg/dL (1.8-2.4); POTASSIUM 4.1 mmol/L (3.5-5.1); TOT PROT 5.2 g/dl (6.4-8.2)
[2020-05-26] MEDS: ENOXAPARIN NA (PORCINE) 40 MG/0.4 ML DISP.SYRIN SQ SCH (09:11)
[2020-05-26] MEDS: MULTIVITAMINS (DAILY MVI) TABLET (FP) PO SCH (09:11)
[2020-05-26] MEDS: metoPROLOL SUCCINATE 25 MG TAB.SR.24H (FP) PO SCH (09:11)
[2020-05-26] MEDS: ASPIRIN COATED 81 MG TABLET.EC PO SCH (09:11)
[2020-05-26] MEDS: POLYETHYLENE GLYCOL 3350 119 GM BTL PO SCH (09:12)
--- NOTE | 2020-05-26 12:16 | PN ---
Physical Exam: SUBJECTIVE: Patient seen and examined at the bedside. In no acute distress. patient non ambulating well with physical therapy at this time. 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 on admission patient also noed to have toxic metabolic encephalopathy with moderate protein calorie malnutrition. swallow eval ordered for increased leukocytosis. Vital Signs Period Temp Pulse Resp BP Sys/Zamudio Pulse Ox Last 24 Hr 97.2 F-98.4 F 65-83 20-20 104-153/48-77 95-98 GENERAL: The patient is awake, forgetful, confused HEAD: Normal with no signs of trauma. EYES: PERRL, extraocular movements intact, sclera anicteric, conjunctiva clear. No ptosis. ENT: Ears normal, nares patent, oropharynx clear without exudates NECK: Trachea midline, full range of motion, supple. LUNGS: mild wheezing on anterior lobes, diminished posteriorly HEART: Regular rate and rhythm ABDOMEN: Soft, nontender, nondistended, normoactive bowel sounds EXTREMITIES: no edema. NEUROLOGICAL: Normal speech, gait not observed. PSYCH: Normal mood, normal affect. Laboratory Results - last 24 hr 05/25/20 05/26/20 05/26/20 11:37 05:40 05:40 WBC 14.8 H RBC 3.76 L Hgb 11.9 Hct 36.6 MCV 97.5 H MCH 31.7 MCHC 32.5 RDW 14.0 Plt Count 125 L MPV 8.8 Absolute Neuts (auto) 13.3 H Neutrophils % 89.6 H Lymphocytes % 4.0 L D Monocytes % 6.2 Eosinophils % 0.0 D Basophils % 0.2 Nucleated RBC % 0 Sodium 144 Potassium 4.1 Chloride 113 H Carbon Dioxide 25 Anion Gap 6 L BUN 19.0 H Creatinine 0.9 Est GFR (CKD-EPI)AfAm 93.16 Est GFR (CKD-EPI)NonAf 80.38 Random Glucose 105 Calcium 7.5 L Magnesium 1.9 Total Bilirubin 0.6 AST 138 H ALT 105 H Alkaline Phosphatase 123 H Creatine Kinase 925 H 807 H Creatine Kinase Index 0.2 0.4 CK-MB (CK-2) 2.4 4.0 H Total Protein 5.2 L Albumin 2.3 L Active Medications Generic Name Dose Route Start Last Admin Trade Name Yenni PRN Reason Stop Dose Admin Acetaminophen 1,000 mg 05/25/20 16:30 05/25/20 22:25 Ofirmev Injection - IVPB 05/26/20 16:30 1,000 mg Q6H PRN Administration PAIN LEVEL 6-10 Albuterol Sulfate 2 puff 05/23/20 16:11 Ventolin Hfa Inhaler - IH Q6H PRN SHORTNESS OF BREATH Albuterol/Ipratropium 1 amp 05/24/20 13:05 Duoneb - NEB Q6H PRN SHORTNESS OF BREATH Aspirin 81 mg 05/23/20 15:15 05/26/20 09:11 Ecotrin - PO 81 mg DAILY SHERWIN Administration Atorvastatin Calcium 40 mg 05/23/20 22:00 05/25/20 22:01 Lipitor - PO 40 mg HS SHERWIN Administration Enoxaparin Sodium 40 mg 05/23/20 10:00 05/26/20 09:11 Lovenox - SQ 40 mg DAILY SHERWIN Administration Sodium Chloride 1,000 mls @ 75 mls/hr 05/23/20 00:30 05/25/20 09:33 Normal Saline - IV 75 mls/hr ASDIR SHERWIN Administration Ceftriaxone Sodium 1 gm/ 50 mls @ 100 mls/hr 05/23/20 22:00 05/25/20 22:01 Dextrose IVPB 100 mls/hr Q24H SHERWIN Administration Protocol Metoprolol Succinate 25 mg 05/23/20 15:15 05/26/20 09:11 Toprol Xl - PO 25 mg DAILY SHERWIN Administration Multivitamins/Minerals/Vitamin C 1 tab 05/24/20 10:00 05/26/20 09:11 Tab-A-Vit - PO 1 tab DAILY SHERWIN Administration Polyethylene Glycol 17 gm 05/24/20 10:00 05/26/20 09:12 Miralax (For Daily Use) - PO 17 gm DAILY SHERWIN Administration ASSESSMENT/PLAN: Problem List - Problems (1) Acute metabolic encephalopathy Assessment/Plan: head ct negative, blood cultures negative to date UC + Kleb, on Ceftriaxone ID consulted for increased WBC on todays labs will also order swallow eval for possible aspiration pneumonia as cause of rising WBC monitor mental status Code(s): G93.41 - METABOLIC ENCEPHALOPATHY (2) CAD (coronary artery disease) Assessment/Plan: on lipitor Code(s): I25.10 - ATHSCL HEART DISEASE OF [place] CORONARY ARTERY W/O ANG PCTRS Qualifiers: Coronary Disease-Associated Artery/Lesion type: [place] artery [place] vs. transplanted heart: [place] heart Associated angina: without angina Qualified Code(s): I25.10 - Atherosclerotic heart disease of [place] coronary artery without angina pectoris (3) COPD (chronic obstructive pulmonary disease) Assessment/Plan: mild wheezing of anterior upper lobes, diminished otherwise. tolerating room a ir Code(s): J44.9 - CHRONIC OBSTRUCTIVE PULMONARY DISEASE, UNSPECIFIED Qualifiers: COPD type: unspecified COPD Qualified Code(s): J44.9 - Chronic obstructive pulmonary disease, unspecified (4) Constipation Assessment/Plan: bowel regimen ordered Code(s): K59.00 - CONSTIPATION, UNSPECIFIED (5) Demand ischemia Assessment/Plan: cardiology following Code(s): I24.8 - OTHER FORMS OF ACUTE ISCHEMIC HEART DISEASE (6) Diastolic dysfunction Assessment/Plan: no signs of volume overload. cardiology following lisinopril added Code(s): I51.89 - OTHER ILL-DEFINED HEART DISEASES (7) Moderate protein-calorie malnutrition Assessment/Plan: on supplemnts, RD following Code(s): E44.0 - MODERATE PROTEIN-CALORIE MALNUTRITION (8) Prophylactic measure Code(s): Z29.9 - ENCOUNTER FOR PROPHYLACTIC MEASURES, UNSPECIFIED (9) Rhabdomyolysis Assessment/Plan: continue to trend daily Code(s): M62.82 - RHABDOMYOLYSIS (10) DVT prophylaxis Assessment/Plan: on lovenox Code(s): Z29.9 - ENCOUNTER FOR PROPHYLACTIC MEASURES, UNSPECIFIED (11) Fall Assessment/Plan: physical therapy evaluation Code(s): W19.XXXA - UNSPECIFIED FALL, INITIAL ENCOUNTER Visit type - Emergency Visit Emergency Visit: Yes ED Registration Date: 05/22/20 Care time: The patient presented to the Emergency Department on the above date and was hospitalized for further evaluation of their emergent condition. - New Patient This patient is new to me today: Yes Date on this admission: 05/26/20 - Critical Care Critical Care patient: No - Discharge Referral Referred to [facility] No - Medication Review Med list reviewed for High Risk Meds patients 65 and older: Yes
--- NOTE | 2020-05-26 13:39 | CON.ID ---
Consult Consult Specialty:: infectious diseases Referred by:: dima Reason for Consultation:: uti,weakness - History of Present Illness Chief Complaint: weakness History of Present Illness: 79 y.o. 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 . Patient says he was sleeping and woke up to use the bathroom. When he tried to stand up he fell to the ground and wasn't able to stand up. He was able to call for help and was brought to the ED. patients mental status is altered from his baseline (normally aox3, complete sentences). According to the son, the pt's memory has been progressively declining over the past 6 months, however since the fall today he has noticed a rapid decline in mental status. At home he ambulates with a cane and is mobile on his own. the above history was obtained from the charts as patient is unable to give history - History Source History Provided By: Patient, Medical Record Limitations to Obtaining History: Dementia - Alcohol/Substance Use Hx Alcohol Use: No - Smoking History Smoking history: Former smoker Have you smoked in the past 12 months: No Aproximately how many cigarettes per day: 20 Home Medications - Allergies Allergies/Adverse Reactions: Allergies Allergy/AdvReac Type Severity Reaction Status Date / Time No Known Allergies Allergy Verified 08/02/19 15:36 Review of Systems Unable to obtain ROS, reason: unable to obtain Physical Exam Vital Signs: Vital Signs Temperature 98.1 F 05/26/20 13:00 Pulse Rate 94 H 05/26/20 13:00 Respiratory Rate 20 05/26/20 13:00 Blood Pressure 155/87 05/26/20 13:00 O2 Sat by Pulse Oximetry (%) 94 L 05/26/20 13:00 Constitutional: Yes: No Distress, Calm, Thin Eyes: Yes: Conjunctiva Clear HENT: Yes: Atraumatic, Normocephalic Neck: Yes: Supple, Trachea Midline Cardiovascular: Yes: Regular Rate and Rhythm Respiratory: Yes: Regular, CTA Bilaterally Gastrointestinal: Yes: Normal Bowel Sounds, Soft Musculoskeletal: Yes: WNL Extremities: Yes: WNL Neurological: Yes: Alert, Confusion Labs: CBC, BMP 05/26/20 05:40 05/26/20 05:40 Imaging - Results Chest X-ray: Report Reviewed, Image Reviewed Cat Scan: Report Reviewed, Image Reviewed Assessment/Plan Problem List - Problems (1) Acute metabolic encephalopathy Code(s): G93.41 - METABOLIC ENCEPHALOPATHY (2) CAD (coronary artery disease) Code(s): I25.10 - ATHSCL HEART DISEASE OF [place] CORONARY ARTERY W/O ANG PCTRS Qualifiers: Coronary Disease-Associated Artery/Lesion type: [place] artery [place] vs. transplanted heart: [place] heart Associated angina: without angina Qualified Code(s): I25.10 - Atherosclerotic heart disease of [place] coronary artery without angina pectoris (3) COPD (chronic obstructive pulmonary disease) Code(s): J44.9 - CHRONIC OBSTRUCTIVE PULMONARY DISEASE, UNSPECIFIED Qualifiers: COPD type: unspecified COPD Qualified Code(s): J44.9 - Chronic obstructive pulmonary disease, unspecified (4) Demand ischemia Code(s): I24.8 - OTHER FORMS OF ACUTE ISCHEMIC HEART DISEASE (5) Diastolic dysfunction Code(s): I51.89 - OTHER ILL-DEFINED HEART DISEASES (6) Fall Code(s): W19.XXXA - UNSPECIFIED FALL, INITIAL ENCOUNTER (7) HTN (hypertension) Code(s): I10 - ESSENTIAL (PRIMARY) HYPERTENSION Qualifiers: Hypertension type: essential hypertension Qualified Code(s): I10 - Essential (primary) hypertension (8) Hyperlipidemia Code(s): E78.5 - HYPERLIPIDEMIA, UNSPECIFIED Qualifiers: Hyperlipidemia type: pure hypercholesterolemia Qualified Code(s): E78.00 - Pure hypercholesterolemia, unspecified; E78.0 - Pure hypercholesterolemia (9) UTI (urinary tract infection) Code(s): N39.0 - URINARY TRACT INFECTION, SITE NOT SPECIFIED Qualifiers: Urinary tract infection type: site unspecified Hematuria presence: with hematuria Qualified Code(s): N39.0 - Urinary tract infection, site not specified; R31.9 - Hematuria, unspecified (10) Weakness Code(s): R53.1 - WEAKNESS plan patient started on abx will see how he does nutrition asp precautions
--- NOTE | 2020-05-26 14:00 | CONSULT ---
Admitting History and Physical - Admission History of Present Illness: 79 y/o male who was BIB his son after mechanical fall, head trauma. Pt presents with toxic metabolic encephalopathy, moderate protein calorie malnutrition. 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 Selected Entries 05/23/20 05/25/20 05/26/20 15:38 18:00 01:32 Breakfast NPO Diet Tolerated Fair Lunch 75% Supper 50% Temperature 98.4 F Pulse Rate 83 Blood Pressure 104/48 L O2 Sat by Pulse Oximetry (%) Oxygen Delivery Method 05/26/20 05/26/20 05/26/20 06:00 09:00 11:57 Breakfast 0 Diet Tolerated Refused Lunch Supper Temperature 97.2 F L 97.9 F Pulse Rate 76 83 Blood Pressure 118/59 L 153/77 O2 Sat by Pulse 98 Oximetry (%) Oxygen Delivery Room Air Method 05/26/20 13:00 Breakfast Diet Tolerated Lunch Supper Temperature 98.1 F Pulse Rate 94 H Blood Pressure 155/87 O2 Sat by Pulse 94 L Oximetry (%) Oxygen Delivery Method Laboratory Tests 05/22/20 05/23/20 05/24/20 21:00 05:40 07:00 WBC 19.6 H 16.8 H 13.8 H 05/25/20 05/26/20 06:10 05:40 WBC 9.5 14.8 H Laboratory Tests 05/23/20 08:00 COVID-19 (NARESH) Not detected On soft/reg diet/thin liquid Edentulous. Pt is verbal, friendly and engaging, disoriented to age, place, date. Thinks he i8s on [place] [employer] and wants to know how I knew to visit him here. He reports feeling congested and seems SOB/anxious. 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 History - Admission Reason For Visit: UTI,ELEVATED TROPONIN LEVEL,FALL - Diagnostics X-ray: Report Reviewed CT Scan: Report Reviewed - General Mental Status: Awake and Alert, Able to Follow Commands, Forgetful, Confused Attention: Distractible Ability to Follow Directions: Good Head/Neck Control: Good - Hearing Hearing: Functional Speech Evaluation - Communication Primary Language: TELUG[place] Communication: Yes: Within Normal Limits Oral Expression Ability: Yes: No Impairment - Speech Production Able to Make Needs Known: Yes: WNL Intelligibility: Yes: WNL - Speech Characteristics Voice Loudness: Normal Voice Pitch: Yes: Normal Voice Phonatory-based Quality: Yes: Normal Speech Pattern: Normal Speech Clarity: < 100% Nasal Resonance: Normal Articulation: Yes: Precise Rate of Speech: Intact - Language/Auditory Comprehension Follows: Yes: 2 Stage Simple Commands Observation: Able to respond to yes/no queries: Yes, Yes/No Confusion: No, Comprehends Conversational Speech: Yes - Language/Verbal Expression Able to Respond to Simple Queries: Yes: WNL Able to Communicate Wants and Needs: Yes: WNL Functional Communication Status: Yes: WNL - Swallow Evaluation/Bedside Assessment Current Nutritional Intake: Regular, Thin Liquids Oral Secretions: Yes: WFL Dentition: Yes: Edentulous (Says his dentures are not here) Facial Symmetry at Rest: Symmetrical Facial Symmetry on Retraction: Symmetrical Facial Movement: Controlled Against Resistance Opening: Normal Against Resistance Closing: Normal Pucker Lips: Normal Smile: Normal Lingual Movement: Normal, Symmetric Lingual Speed of Movement: Normal Lingual Movement Strgth Against Opposition: Normal Lingual Movement Characteristics: Normal Laryngeal Movement: Able to Palpate, Labored,delay initiation (very delayed, often not triggered. Needs repeated cues to swallow. Swallow seems brisk once tiggered) Rate of Intake: Slow/Holding Chewing: Impaired Oral Prep Time: Increased A-P Transit: Impaired Timing of Swallow: Delayed (very. needs cues to swallow) Coughing/Throat Clear: No (says it "went down wrong" no cough, sob) Recommendations - Speech Evaluation, Impression/Plan Impression: [place] very delayed, often not triggered. Needs repeated cues to swallow. Swallow seems brisk once tiggered. On reg diet. Edentulous. No responsive cough while drinking, however, sudden eye opening, says it "went down wrong". Suspect oropharyngeal dyscoordination-Silent aspiration? SOB - Disposition Discharge to: Longterm Facility, To be Determined - Dysphagia Impressions/Plan Swallowing Skills: Impaired Dysphagia Impressions: Risk of Aspiration, Ongoing Evaluation, Suspect Aspiratio n *Silent aspiration: cannot be R/O at bedside Dysphagia Treatment Plan: Small Bites, Chin Tuck/Down, Clear Pocket Food, Facilitative Feeding, Safe Rate, 1/2 tsp. at a time, Elevate HOB during feed, Other (tell pt to swallow, palpate larynx for reflex) Recommendations: Modified Barium Swallow - Recommendations Diet Consistency: Dysphagia Pureed Medication Administration: Crushed with applesauce Liquids: [place] Thick Supplement: Magic Cup, Ensure Pudding, Other (2 Renee HN)
[2020-05-26] MEDS: SODIUM CHLORIDE 1,000 ML IV SCH (23:48)
[2020-05-26] MEDS ORDERED: cefTRIAXone SODIUM 1 GM VIAL ONE (23:50)
[2020-05-27] MEDS: CEFTRIAXONE 1 GM in DEXTROSE 5%-WATER - 50 ML IVPB SCH ×2 (00:08→22:37)
[2020-05-27] MEDS: DOCUSATE SODIUM 100 MG CAPSULE (FP) PO SCH ×4 (00:08→22:37)
[2020-05-27] MEDS: ATORVASTATIN CA 40 MG TABLET (FP) PO SCH ×2 (00:08→22:37)
[2020-05-27] MEDS: SODIUM CHLORIDE 1,000 ML IV SCH (07:53)
--- NOTE | 2020-05-27 09:54 | PN ---
Physical Exam: SUBJECTIVE: Patient seen and examined. spoke to son Eddie, states ambulation has worsened over time patient's brother has parkinsons disease. son reports that patient was lucid two weeks ago. baseline is aox 3. 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 on admission patient also noted to have toxic metabolic encephalopathy with moderate protein calorie malnutrition. ------ swallow eval, now on nectar thick flds rhabdo, re check cpk pulmonary consult for possible early infiltrate klebsiella UTI moderate protein calorie malnutrition elevated liver enzymes ------ covid status: negative as of 05/23/2020 Period Temp Pulse Resp BP Sys/Zamudio Pulse Ox Last 24 Hr 98.1 F-98.8 F 89-103 18-20 129-156/68-87 91-94 GENERAL: The patient is awake, forgetful, confused but can tell me his name and his sons name, knows he is in the hospital HEAD: Normal with no signs of trauma. EYES: PERRL, extraocular movements intact, sclera anicteric, conjunctiva clear. No ptosis. ENT: Ears normal, nares patent, oropharynx clear without exudates NECK: Trachea midline, full range of motion, supple. LUNGS: mild wheezing on anterior lobes, diminished posteriorly HEART: Regular rate and rhythm ABDOMEN: Soft, nontender, nondistended, normoactive bowel sounds EXTREMITIES: no edema. NEUROLOGICAL: Normal speech, gait not observed. PSYCH: Normal mood, normal affect. Active Medications Generic Name Dose Route Start Last Admin Trade Name Yenni PRN Reason Stop Dose Admin Albuterol Sulfate 2 puff 05/23/20 16:11 Ventolin Hfa Inhaler - IH Q6H PRN SHORTNESS OF BREATH Albuterol/Ipratropium 1 amp 05/24/20 13:05 Duoneb - NEB Q6H PRN SHORTNESS OF BREATH Aspirin 81 mg 05/23/20 15:15 05/26/20 09:11 Ecotrin - PO 81 mg DAILY SHERWIN Administration Atorvastatin Calcium 40 mg 05/23/20 22:00 05/27/20 00:08 Lipitor - PO 40 mg HS [facility]WIN Administration Docusate Sodium 100 mg 05/26/20 22:00 05/27/20 07:54 Colace - PO Not Given TID SHERWIN Enoxaparin Sodium 40 mg 05/23/20 10:00 05/26/20 09:11 Lovenox - SQ 40 mg DAILY [facility] Administration Sodium Chloride 1,000 mls @ 75 mls/hr 05/23/20 00:30 05/27/20 07:53 Normal Saline - IV Not Given ASDIR [facility] Ceftriaxone Sodium 1 gm/ 50 mls @ 100 mls/hr 05/23/20 22:00 05/27/20 00:08 Dextrose IVPB 100 mls/hr Q24H [facility]ER[facility] Administration Protocol Lisinopril 5 mg 05/27/20 10:00 Prinivil PO DAILY [facility]ERWIN Metoprolol Succinate 25 mg 05/23/20 15:15 05/26/20 09:11 Toprol Xl - PO 25 mg DAILY [facility] Administration Multivitamins/Minerals/Vitamin C 1 tab 05/24/20 10:00 05/26/20 09:11 Tab-A-Vit - PO 1 tab DAILY [facility] Administration Polyethylene Glycol 17 gm 05/24/20 10:00 05/26/20 09:12 Miralax (For Daily Use) - PO 17 gm DAILY [facility]ERWIN Administration ASSESSMENT/PLAN: Problem List - Problems (1) UTI due to Klebsiella species Assessment/Plan: on ceftriaxone Code(s): N39.0 - URINARY TRACT INFECTION, SITE NOT SPECIFIED; B96.89 - OTH BACTERIAL AGENTS THE CAUSE OF DISEASES CLASSD ELSWHR (2) Acute metabolic encephalopathy Assessment/Plan: head ct negative, blood cultures negative to date UC + Kleb, on Ceftriaxone 1 gram daily ID consulted for increased WBC, recommend to continue to monitor and if WBC increases, may consider switching antbiotic therapy swallow eval showed need for aspiration precautions with nectar thick fluids monitor mental status Code(s): G93.41 - METABOLIC ENCEPHALOPATHY (3) CAD (coronary artery disease) Assessment/Plan: on lipitor Code(s): I25.10 - ATHSCL HEART DISEASE OF [place] CORONARY ARTERY W/O ANG PCTRS Qualifiers: Coronary Disease-Associated Artery/Lesion type: [place] artery [place] vs. transplanted heart: [place] heart Associated angina: without angina Qualified Code(s): I25.10 - Atherosclerotic heart disease of [place] coronary artery without angina pectoris (4) COPD (chronic obstructive pulmonary disease) Assessment/Plan: mild wheezing of anterior upper lobes, diminished otherwise. on 2 liters of nasal cannula pulmonary consulted Code(s): J44.9 - CHRONIC OBSTRUCTIVE PULMONARY DISEASE, UNSPECIFIED Qualifiers: COPD type: unspecified COPD Qualified Code(s): J44.9 - Chronic obstructive pulmonary disease, unspecified (5) Constipation Assessment/Plan: bowel regimen ordered Code(s): K59.00 - CONSTIPATION, UNSPECIFIED (6) Demand ischemia Assessment/Plan: cardiology following Code(s): I24.8 - OTHER FORMS OF ACUTE ISCHEMIC HEART DISEASE (7) Diastolic dysfunction Assessment/Plan: no signs of volume overload. cardiology following lisinopril added Code(s): I51.89 - OTHER ILL-DEFINED HEART DISEASES (8) Moderate protein-calorie malnutrition Assessment/Plan: on supplemnts, RD following Code(s): E44.0 - MODERATE PROTEIN-CALORIE MALNUTRITION (9) Prophylactic measure Code(s): Z29.9 - ENCOUNTER FOR PROPHYLACTIC MEASURES, UNSPECIFIED (10) Rhabdomyolysis Assessment/Plan: CPK improving, daily labs continue ivf Code(s): M62.82 - RHABDOMYOLYSIS (11) DVT prophylaxis Assessment/Plan: on lovenox Code(s): Z29.9 - ENCOUNTER FOR PROPHYLACTIC MEASURES, UNSPECIFIED (12) Fall Assessment/Plan: physical therapy evaluation. patient for SNF placement Code(s): W19.XXXA - UNSPECIFIED FALL, INITIAL ENCOUNTER Visit type - Emergency Visit Emergency Visit: Yes ED Registration Date: 05/22/20 Care time: The patient presented to the Emergency Department on the above date and was hospitalized for further evaluation of their emergent condition. - New Patient This patient is new to me today: No - Critical Care Critical Care patient: No - Discharge Referral Referred to [facility] No - Medication Review Med list reviewed for High Risk Meds patients 65 and older: Yes
--- NOTE | 2020-05-27 10:18 | PN ---
Progress Note (short form) - Note Progress Note: PULMONARY CONSULTATION DICTATED 05/27/20 IMP S/P FALL ?SYNCOPE R/O RLL INFILTRATE LIKELY ASPIRATION ALTERED MENTAL STATUS COPD UTI H/O PARTIAL L LUNG RESECTION SECONDARY TO PULMONARY NODULE TB HTN ASHD + TROPONIN LIKELY DEMAND ISCHEMIA ELEVATED LFTS PLAN SUPPLEMENTAL O2 INHALED BRONCHODILATORS ABX PER ID TREND LFTS,TROPONINS MONITOR LYTES CHEST CT ASPIRATION PRECAUTIONS DR CID Problem List - Problems (1) Acute metabolic encephalopathy Code(s): G93.41 - METABOLIC ENCEPHALOPATHY (2) CAD (coronary artery disease) Code(s): I25.10 - ATHSCL HEART DISEASE OF [place] CORONARY ARTERY W/O ANG PCTRS Qualifiers: Coronary Disease-Associated Artery/Lesion type: [place] artery [place] vs. transplanted heart: [place] heart Associated angina: without angina Qualified Code(s): I25.10 - Atherosclerotic heart disease of [place] coronary artery without angina pectoris (3) COPD (chronic obstructive pulmonary disease) Code(s): J44.9 - CHRONIC OBSTRUCTIVE PULMONARY DISEASE, UNSPECIFIED Qualifiers: COPD type: unspecified COPD Qualified Code(s): J44.9 - Chronic obstructive pulmonary disease, unspecified (4) Demand ischemia Code(s): I24.8 - OTHER FORMS OF ACUTE ISCHEMIC HEART DISEASE (5) Diastolic dysfunction Code(s): I51.89 - OTHER ILL-DEFINED HEART DISEASES (6) Fall Code(s): W19.XXXA - UNSPECIFIED FALL, INITIAL ENCOUNTER (7) HTN (hypertension) Code(s): I10 - ESSENTIAL (PRIMARY) HYPERTENSION Qualifiers: Hypertension type: essential hypertension Qualified Code(s): I10 - Essential (primary) hypertension (8) Hyperlipidemia Code(s): E78.5 - HYPERLIPIDEMIA, UNSPECIFIED Qualifiers: Hyperlipidemia type: pure hypercholesterolemia Qualified Code(s): E78.00 - Pure hypercholesterolemia, unspecified; E78.0 - Pure hypercholesterolemia (9) UTI (urinary tract infection) Code(s): N39.0 - URINARY TRACT INFECTION, SITE NOT SPECIFIED Qualifiers: Urinary tract infection type: site unspecified Hematuria presence: with hematuria Qualified Code(s): N39.0 - Urinary tract infection, site not specified; R31.9 - Hematuria, unspecified (10) Weakness Code(s): R53.1 - WEAKNESS
--- NOTE | 2020-05-27 10:30 | PN ---
Progress Note, Physician History of Present Illness: No events on telemetry, denies recurrent near or true syncope. - Current Medication List Current Medications: Active Medications Albuterol Sulfate (Ventolin Hfa Inhaler -) 2 puff IH Q6H PRN PRN Reason: SHORTNESS OF BREATH Albuterol/Ipratropium (Duoneb -) 1 amp NEB Q6H PRN PRN Reason: SHORTNESS OF BREATH Aspirin (Ecotrin -) 81 mg PO DAILY [facility] Last Admin: 05/26/20 09:11 Dose: 81 mg Documented by: Atorvastatin Calcium (Lipitor -) 40 mg PO HS [facility] Last Admin: 05/27/20 00:08 Dose: 40 mg Documented by: Docusate Sodium (Colace -) 100 mg PO TID [facility] Last Admin: 05/27/20 07:54 Dose: Not Given Documented by: Enoxaparin Sodium (Lovenox -) 40 mg SQ DAILY [facility] Last Admin: 05/26/20 09:11 Dose: 40 mg Documented by: Sodium Chloride (Normal Saline -) 1,000 mls @ 75 mls/hr IV ASDIR [facility] Last Admin: 05/27/20 07:53 Dose: Not Given Documented by: Ceftriaxone Sodium 1 gm/ (Dextrose) 50 mls @ 100 mls/hr IVPB Q24H [facility]; Protocol Last Admin: 05/27/20 00:08 Dose: 100 mls/hr Documented by: Lisinopril (Prinivil) 5 mg PO DAILY [facility] Metoprolol Succinate (Toprol Xl -) 25 mg PO DAILY [facility] Last Admin: 05/26/20 09:11 Dose: 25 mg Documented by: Multivitamins/Minerals/Vitamin C (Tab-A-Vit -) 1 tab PO DAILY [facility] Last Admin: 05/26/20 09:11 Dose: 1 tab Documented by: Polyethylene Glycol (Miralax (For Daily Use) -) 17 gm PO DAILY [facility] Last Admin: 05/26/20 09:12 Dose: 17 gm Documented by: - Objective Vital Signs: Vital Signs Temperature 98.8 F 05/27/20 01:24 Pulse Rate 98 H 05/27/20 05:00 Respiratory Rate 18 05/27/20 05:00 Blood Pressure 135/76 05/27/20 05:00 O2 Sat by Pulse Oximetry (%) 94 L 05/26/20 21:00 Constitutional: Yes: No Distress, Calm Neck: Yes: Supple Cardiovascular: Yes: Regular Rate and Rhythm Respiratory: Yes: Regular, Diminished Gastrointestinal: Yes: Normal Bowel Sounds, Soft Edema: No Labs: INR, PTT INR 1.28 (0.83-1.09) H 05/23/20 05:40 - ....Imaging Chest X-ray: Report Reviewed (NAD) EKG: Report Reviewed (Tele: NSR occ PAC) Problem List - Problems (1) CAD (coronary artery disease) Code(s): I25.10 - ATHSCL HEART DISEASE OF [place] CORONARY ARTERY W/O ANG PCTRS Qualifiers: Coronary Disease-Associated Artery/Lesion type: [place] artery [place] vs. transplanted heart: [place] heart Associated angina: without angina Qualified Code(s): I25.10 - Atherosclerotic heart disease of [place] coronary artery without angina pectoris (2) COPD (chronic obstructive pulmonary disease) Code(s): J44.9 - CHRONIC OBSTRUCTIVE PULMONARY DISEASE, UNSPECIFIED Qualifiers: COPD type: unspecified COPD Qualified Code(s): J44.9 - Chronic obstructive pulmonary disease, unspecified (3) HTN (hypertension) Code(s): I10 - ESSENTIAL (PRIMARY) HYPERTENSION Qualifiers: Hypertension type: essential hypertension Qualified Code(s): I10 - Essential (primary) hypertension (4) Diastolic dysfunction Code(s): I51.89 - OTHER ILL-DEFINED HEART DISEASES (5) Demand ischemia Code(s): I24.8 - OTHER FORMS OF ACUTE ISCHEMIC HEART DISEASE (6) Hyperlipidemia Code(s): E78.5 - HYPERLIPIDEMIA, UNSPECIFIED Qualifiers: Hyperlipidemia type: pure hypercholesterolemia Qualified Code(s): E78.00 - Pure hypercholesterolemia, unspecified; E78.0 - Pure hypercholesterolemia Assessment/Plan 05/25/2020 Echo: Normal biventricular size and fxn, mild MR, TR, abnl LV compliance 1. Unwitnessed fall unclear mechanical versus a syncopal episode 2. Coronary artery disease post percutaneous coronary intervention with evidence of demand ischemic injury angina pectoris (Patient has not had coronary artery bypass graft surgery as stated in the notes) 3. Diastolic left ventricular dysfunction with class 0 [place] [employer] classification left ventricular failure 4. Hypertensive cardiovascular disease 5. 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 History of lung surgery partial resection 8. History of chronic obstructive pulmonary disease 9. Urinary tract infection 10. Chronic kidney disease 11. Abnormal liver function testing 12. Fever on empiric abx PLAN: 1. Continue Toprol-XL 25 qd and dose titration as needed/as tolerated, troponins have plateaued 2. Recommend the addition of SALOMON inhibitor or angiotensin receptor mandeep therapy unless it is absolutely contraindicated provided renal function is at baseline 3. Continue Lipitor 40 qd 4. Continue daily Ecotrin 81 qd, replete K 5. Antibiotics as per the primary team 6. PT->gait training, dysphagia diet
[2020-05-27 10:33] LABS: BASO % 0.4 % (0-2.0); EOS % 0.2 % (0-4.5); HEMATOCRIT 39.1 % (35.4-49); HEMOGLOBIN 12.8 GM/dL (11.7-16.9); LYMPH % 9.3 % (8-40); MCH 32.3 pg (25.7-33.7); MCHC 32.9 g/dl (32.0-35.9); MEAN CELL VOLUME 98.2 fl (80-96); MEAN PLT VOLUME 9.7 fl (7.5-11.1); MONO % 12.7 % (3.8-10.2); NEUT % 77.4 % (42.8-82.8); PLATELET COUNT 136 K/MM3 (134-434); RBC 3.98 M/mm3 (4.00-5.60); RDW 14.4 % (11.9-15.9); WHITE BLOOD COUNT 11.9 K/mm3 (4.0-10.0)
[2020-05-27 10:59] LABS: ALBUMIN 2.1 g/dl (3.4-5.0); BILIRUBIN,TOTAL 0.7 mg/dL (0.2-1); CREATININE 0.7 mg/dL (0.55-1.3); MAGNESIUM 1.8 mg/dL (1.8-2.4); POTASSIUM 3.2 mmol/L (3.5-5.1)
[2020-05-27] MEDS ORDERED: POTASSIUM CHLORIDE ORAL LIQUID 20 MEQ/15 ML PO ONE (11:02)
--- NOTE | 2020-05-27 11:03 | PN ---
Progress Note, CONTRACT ATTORNEY - Note Progress Note: CXR noted Pulmonary-IMP S/P FALL ?SYNCOPE R/O RLL INFILTRATE LIKELY ASPIRATION Downgraded to puree/nectar thick liquid Selected Entries 05/26/20 05/26/20 05/26/20 11:57 14:00 22:00 Breakfast 0 Diet Tolerated Refused Poor Lunch 25% Supper 25% Temperature Pulse Rate Blood Pressure 05/27/20 05/27/20 01:24 05:00 Breakfast Diet Tolerated Lunch Supper Temperature 98.8 F Pulse Rate 90 98 H Blood Pressure 129/77 135/76 Laboratory Tests 05/25/20 05/26/20 05/27/20 06:10 05:40 09:51 WBC 9.5 14.8 H 11.9 H Suggest MBS tro further assess swallowing function, r/o aspiration
[2020-05-27] MEDS: POLYETHYLENE GLYCOL 3350 119 GM BTL PO SCH (11:49)
[2020-05-27] MEDS: ENOXAPARIN NA (PORCINE) 40 MG/0.4 ML DISP.SYRIN SQ SCH (11:54)
[2020-05-27] MEDS: LISINOPRIL 5 MG TABLET (FP) PO SCH (11:55)
[2020-05-27] MEDS: MULTIVITAMINS (DAILY MVI) TABLET (FP) PO SCH (11:55)
[2020-05-27] MEDS: metoPROLOL SUCCINATE 25 MG TAB.SR.24H (FP) PO SCH (11:55)
[2020-05-27 12:02] LABS: CALCIUM 6.9 mg/dL (8.5-10.1)
[2020-05-27] MEDS: ASPIRIN COATED 81 MG TABLET.EC PO SCH (13:14)
[2020-05-27] MEDS: CALCIUM (OYSTER SHELL) 500 MG TABLET (FP) PO SCH ×2 (13:14→22:37)
--- NOTE | 2020-05-27 13:14 | EKG ---
Test Reason : Blood Pressure : / mmHG Vent. Rate : 080 BPM Atrial Rate : 080 BPM P-R Int : 162 ms QRS Dur : 082 ms QT Int : 376 ms P-R-T Axes : 085 056 068 degrees QTc Int : 433 ms NORMAL SINUS RHYTHM LEFT VENTRICULAR HYPERTROPHY WITH REPOLARIZATION ABNORMALITY CANNOT RULE OUT SEPTAL INFARCT (CITED ON OR BEFORE 22-MAY-2020) ABNORMAL ECG Confirmed by MD BRUNO, LEDY ([id number]) on 05/27/2020 1:14:20 PM Referred By: Confirmed By:LEDY CARR MD
--- NOTE | 2020-05-27 13:14 | PN ---
Progress Note, Physician History of Present Illness: stable still confused wants to get up - Current Medication List Current Medications: Active Medications Albuterol Sulfate (Ventolin Hfa Inhaler -) 2 puff IH Q6H PRN PRN Reason: SHORTNESS OF BREATH Albuterol/Ipratropium (Duoneb -) 1 amp NEB Q6H PRN PRN Reason: SHORTNESS OF BREATH Aspirin (Ecotrin -) 81 mg PO DAILY [facility] Last Admin: 05/26/20 09:11 Dose: 81 mg Documented by: Atorvastatin Calcium (Lipitor -) 40 mg PO HS [facility] Last Admin: 05/27/20 00:08 Dose: 40 mg Documented by: Calcium Carbonate (Os-[place] 500mg -) 500 mg PO BID [facility]ERWIN Docusate Sodium (Colace -) 100 mg PO TID [facility] Last Admin: 05/27/20 07:54 Dose: Not Given Documented by: Enoxaparin Sodium (Lovenox -) 40 mg SQ DAILY [facility] Last Admin: 05/27/20 11:54 Dose: 40 mg Documented by: Sodium Chloride (Normal Saline -) 1,000 mls @ 75 mls/hr IV ASDIR [facility] Last Admin: 05/27/20 07:53 Dose: Not Given Documented by: Ceftriaxone Sodium 1 gm/ (Dextrose) 50 mls @ 100 mls/hr IVPB Q24H [facility]; Protocol Last Admin: 05/27/20 00:08 Dose: 100 mls/hr Documented by: Lisinopril (Prinivil) 5 mg PO DAILY [facility] Last Admin: 05/27/20 11:55 Dose: 5 mg Documented by: Metoprolol Succinate (Toprol Xl -) 25 mg PO DAILY [facility] Last Admin: 05/27/20 11:55 Dose: 25 mg Documented by: Multivitamins/Minerals/Vitamin C (Tab-A-Vit -) 1 tab PO DAILY [facility] Last Admin: 05/27/20 11:55 Dose: 1 tab Documented by: Polyethylene Glycol (Miralax (For Daily Use) -) 17 gm PO DAILY [facility] Last Admin: 05/27/20 11:49 Dose: Not Given Documented by: - Objective Vital Signs: Vital Signs Temperature 98.8 F 05/27/20 01:24 Pulse Rate 98 H 05/27/20 05:00 Respiratory Rate 18 05/27/20 05:00 Blood Pressure 135/76 05/27/20 05:00 O2 Sat by Pulse Oximetry (%) 94 L 05/26/20 21:00 Constitutional: Yes: No Distress, Calm, Thin (failure to thrive) Cardiovascular: Yes: S1, S2 Respiratory: Yes: Regular, CTA Bilaterally Gastrointestinal: Yes: Normal Bowel Sounds, Soft Musculoskeletal: Yes: WNL Extremities: Yes: Erythema Neurological: Yes: Alert, Other Psychiatric: Yes: Other Labs: CBC, BMP 05/27/20 09:51 05/27/20 09:51 INR, PTT INR 1.28 (0.83-1.09) H 05/23/20 05:40 Assessment/Plan Problem List - Problems (1) Acute metabolic encephalopathy Code(s): G93.41 - METABOLIC ENCEPHALOPATHY (2) CAD (coronary artery disease) Code(s): I25.10 - ATHSCL HEART DISEASE OF [place] CORONARY ARTERY W/O ANG PCTRS Qualifiers: Coronary Disease-Associated Artery/Lesion type: [place] artery [place] vs. transplanted heart: [place] heart Associated angina: without angina Qualified Code(s): I25.10 - Atherosclerotic heart disease of [place] coronary artery without angina pectoris (3) COPD (chronic obstructive pulmonary disease) Code(s): J44.9 - CHRONIC OBSTRUCTIVE PULMONARY DISEASE, UNSPECIFIED Qualifiers: COPD type: unspecified COPD Qualified Code(s): J44.9 - Chronic obstructive pulmonary disease, unspecified (4) Demand ischemia Code(s): I24.8 - OTHER FORMS OF ACUTE ISCHEMIC HEART DISEASE (5) Diastolic dysfunction Code(s): I51.89 - OTHER ILL-DEFINED HEART DISEASES (6) Fall Code(s): W19.XXXA - UNSPECIFIED FALL, INITIAL ENCOUNTER (7) HTN (hypertension) Code(s): I10 - ESSENTIAL (PRIMARY) HYPERTENSION Qualifiers: Hypertension type: essential hypertension Qualified Code(s): I10 - Essential (primary) hypertension (8) Hyperlipidemia Code(s): E78.5 - HYPERLIPIDEMIA, UNSPECIFIED Qualifiers: Hyperlipidemia type: pure hypercholesterolemia Qualified Code(s): E78.00 - Pure hypercholesterolemia, unspecified; E78.0 - Pure hypercholesterolemia (9) UTI (urinary tract infection) Code(s): N39.0 - URINARY TRACT INFECTION, SITE NOT SPECIFIED Qualifiers: Urinary tract infection type: site unspecified Hematuria presence: with hematuria Qualified Code(s): N39.0 - Urinary tract infection, site not specified; R31.9 - Hematuria, unspecified (10) Weakness Code(s): R53.1 - WEAKNESS plan continue abx monitor nutrition rest as per the team
[2020-05-27] MEDS ORDERED: cefTRIAXone SODIUM 1 GM VIAL ONE ×2 (21:54→21:56)
--- NOTE | 2020-05-28 06:46 | CONS ---
DATE OF CONSULTATION: 05/27/2020 REFERRING PHYSICIAN: Ioana Daniel NP Patient is an 79-year-old male with past medical history of COPD, hypertension, ASHD, history of left partial lung resection secondary to TB 10 years ago, nonsmoker, admitted to [facility] on May 22 secondary to fall. Patient states that he was sleeping and woke up to use to bathroom. When he tried to stand up, he fell to the ground and was not able to stand up. He denied any complaints of chest pain, nausea, vomiting, and diaphoresis associated with this. He stated that he was able to call for help and brought to the emergency room. As per the patient's son, the patient's mental status has been altered from his baseline. Normally, he is alert and oriented x3. According to the patient's son on admission, the patient's memory is progressively declining over the past 6 months but has increased since his fall earlier the day prior to admission. Apparently, he ambulates at home with a cane. Hospitalization, the patient was evaluated by cardiology consultation as well as infectious disease consultation secondary to elevated WBC and abnormal UA. He was placed on antibiotic therapy. Of note, his chest x-ray revealed early infiltrate in the right lung. PAST MEDICAL HISTORY: Again, includes COPD, UTI, history of partial lung resection secondary to pulmonary nodule secondary to TB, ASHD, hypertension, elevated LFTs. REVIEW OF SYSTEMS: Unable to obtain. Patient is mildly confused. SOCIAL HISTORY: No occupational exposures. Positive history of tobacco use, quit 20 years ago. MEDICATIONS: Include ceftriaxone, Prinivil, Lovenox, albuterol, DuoNeb, Toprol, MiraLAX, normal saline, Lipitor, Ecotrin, and Os-[place]ena. PHYSICAL EXAMINATION: General: Patient is an elderly male, awake, alert, mildly confused, in no acute distress. Vital Signs: He is afebrile. Blood pressure is 128/71. Respiratory rate is 20. O2 saturation is 92% on 2 L nasal cannula. HEENT: Normocephalic, atraumatic. Neck: Supple. Heart: Regular. S1, S2. Chest: Diminished breath sounds bilaterally. Abdomen: Soft. Bowel sounds are positive. Extremities: No cyanosis or edema. LABORATORY DATA: WBC is 11.9, hemoglobin 12.8, hematocrit 39.1, with a platelet count of 136,000. UA is positive protein, 3+ heme, 3+ ketones, 1+ leukocyte esterase, and nitrites are positive. BUN is 15, creatinine 0.7. Calcium is 6.9. AST is 109, ALT is 92. CK is 576. Troponin 0.39. Chest x-ray as noted earlier. IMPRESSION: 1. Status post fall, questionable syncope. 2. Suspected right lower lobe infiltrate, likely secondary to aspiration. 3. Altered mental status, likely toxic metabolic encephalopathy secondary to infection. 4. Chronic obstructive pulmonary disease. 5. Urinary tract infection. 6. History of partial left lung resection secondary to pulmonary nodules secondary to tuberculosis. 7. Hypertension. 8. Atherosclerotic heart disease. 9. Positive troponin, likely demand ischemia. 10. Elevated liver function tests. PLAN: Supplemental O2, inhaled bronchodilators, antibiotics as per Infectious Disease. Trend LFTs, troponins. Monitor electrolytes. Obtain CT scan of the chest. Aspiration precautions. YRN CID M.D. [id number] / [id number]
[2020-05-28] MEDS: DOCUSATE SODIUM 100 MG CAPSULE (FP) PO SCH ×4 (06:54→21:59)
[2020-05-28] MEDS: SODIUM CHLORIDE 1,000 ML IV SCH (06:56)
--- NOTE | 2020-05-28 07:51 | PN ---
Progress Note, Physician History of Present Illness: pulmonary awake,confused,-resp distress - Current Medication List Current Medications: Active Medications Albuterol Sulfate (Ventolin Hfa Inhaler -) 2 puff IH Q6H PRN PRN Reason: SHORTNESS OF BREATH Albuterol/Ipratropium (Duoneb -) 1 amp NEB Q6H PRN PRN Reason: SHORTNESS OF BREATH Aspirin (Ecotrin -) 81 mg PO DAILY [facility] Last Admin: 05/27/20 13:14 Dose: 81 mg Documented by: Atorvastatin Calcium (Lipitor -) 40 mg PO HS [facility] Last Admin: 05/27/20 22:37 Dose: 40 mg Documented by: Calcium Carbonate (Os-[place] 500mg -) 500 mg PO BID [facility] Last Admin: 05/27/20 22:37 Dose: 500 mg Documented by: Docusate Sodium (Colace -) 100 mg PO TID [facility] Last Admin: 05/28/20 06:54 Dose: 100 mg Documented by: Enoxaparin Sodium (Lovenox -) 40 mg SQ DAILY [facility] Last Admin: 05/27/20 11:54 Dose: 40 mg Documented by: Sodium Chloride (Normal Saline -) 1,000 mls @ 75 mls/hr IV ASDIR [facility] Last Admin: 05/28/20 06:56 Dose: 75 mls/hr Documented by: Ceftriaxone Sodium 1 gm/ (Dextrose) 50 mls @ 100 mls/hr IVPB Q24H [facility]; Protocol Last Admin: 05/27/20 22:37 Dose: 100 mls/hr Documented by: Lisinopril (Prinivil) 5 mg PO DAILY [facility] Last Admin: 05/27/20 11:55 Dose: 5 mg Documented by: Metoprolol Succinate (Toprol Xl -) 25 mg PO DAILY [facility] Last Admin: 05/27/20 11:55 Dose: 25 mg Documented by: Multivitamins/Minerals/Vitamin C (Tab-A-Vit -) 1 tab PO DAILY [facility] Last Admin: 05/27/20 11:55 Dose: 1 tab Documented by: Polyethylene Glycol (Miralax (For Daily Use) -) 17 gm PO DAILY [facility] Last Admin: 05/27/20 11:49 Dose: Not Given Documented by: - Objective Vital Signs: Vital Signs Temperature 98.4 F 05/28/20 01:29 Pulse Rate 67 05/28/20 06:00 Respiratory Rate 20 03/20 06:00 Blood Pressure 150/66 05/28/20 06:00 O2 Sat by Pulse Oximetry (%) 93 L 05/27/20 22:00 Constitutional: Yes: Calm, Thin Eyes: Yes: WNL HENT: Yes: WNL Neck: Yes: WNL Cardiovascular: Yes: Regular Rate and Rhythm, S1, S2 Respiratory: Yes: Rales (few bibasilar crackles) Gastrointestinal: Yes: Normal Bowel Sounds, Soft Extremities: Yes: WNL Edema: No Labs: CBC, BMP INR 1.28 (0.83-1.09) H 05/23/20 05:40 - ....Imaging Cat Scan: Report Reviewed, Image Reviewed Problem List - Problems (1) Acute metabolic encephalopathy Code(s): G93.41 - METABOLIC ENCEPHALOPATHY (2) CAD (coronary artery disease) Code(s): I25.10 - ATHSCL HEART DISEASE OF [place] CORONARY ARTERY W/O ANG PCTRS Qualifiers: Coronary Disease-Associated Artery/Lesion type: [place] artery [place] vs. transplanted heart: [place] heart Associated angina: without angina Qualified Code(s): I25.10 - Atherosclerotic heart disease of [place] coronary artery without angina pectoris (3) COPD (chronic obstructive pulmonary disease) Code(s): J44.9 - CHRONIC OBSTRUCTIVE PULMONARY DISEASE, UNSPECIFIED Qualifiers: COPD type: unspecified COPD Qualified Code(s): J44.9 - Chronic obstructive pulmonary disease, unspecified (4) Demand ischemia Code(s): I24.8 - OTHER FORMS OF ACUTE ISCHEMIC HEART DISEASE (5) Diastolic dysfunction Code(s): I51.89 - OTHER ILL-DEFINED HEART DISEASES (6) Fall Code(s): W19.XXXA - UNSPECIFIED FALL, INITIAL ENCOUNTER (7) HTN (hypertension) Code(s): I10 - ESSENTIAL (PRIMARY) HYPERTENSION Qualifiers: Hypertension type: essential hypertension Qualified Code(s): I10 - Essential (primary) hypertension (8) Hyperlipidemia Code(s): E78.5 - HYPERLIPIDEMIA, UNSPECIFIED Qualifiers: Hyperlipidemia type: pure hypercholesterolemia Qualified Code(s): E78.00 - Pure hypercholesterolemia, unspecified; E78.0 - Pure hypercholesterolemia (9) UTI (urinary tract infection) Code(s): N39.0 - URINARY TRACT INFECTION, SITE NOT SPECIFIED Qualifiers: Urinary tract infection type: site unspecified Hematuria presence: with hematuria Qualified Code(s): N39.0 - Urinary tract infection, site not specified; R31.9 - Hematuria, unspecified (10) Weakness Code(s): R53.1 - WEAKNESS Assessment/Plan IMP S/P FALL ?SYNCOPE R/O RLL INFILTRATE LIKELY ASPIRATION ALTERED MENTAL STATUS improving COPD UTI 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 transplanted heart: [place] heart Associated angina: without angina Qualified Code(s): I25.10 - Atherosclerotic heart disease of [place] coronary artery without angina pectoris (3) COPD (chronic obstructive pulmonary disease) Code(s): J44.9 - CHRONIC OBSTRUCTIVE PULMONARY DISEASE, UNSPECIFIED Qualifiers: COPD type: unspecified COPD Qualified Code(s): J44.9 - Chronic obstructive pulmonary disease, unspecified (4) Demand ischemia Code(s): I24.8 - OTHER FORMS OF ACUTE ISCHEMIC HEART DISEASE (5) Diastolic dysfunction Code(s): I51.89 - OTHER ILL-DEFINED HEART DISEASES (6) Fall Code(s): W19.XXXA - UNSPECIFIED FALL, INITIAL ENCOUNTER (7) HTN (hypertension) Code(s): I10 - ESSENTIAL (PRIMARY) HYPERTENSION Qualifiers: Hypertension type: essential hypertension Qualified Code(s): I10 - Essential (primary) hypertension (8) Hyperlipidemia Code(s): E78.5 - HYPERLIPIDEMIA, UNSPECIFIED Qualifiers: Hyperlipidemia type: pure hypercholesterolemia Qualified Code(s): E78.00 - Pure hypercholesterolemia, unspecified; E78.0 - Pure hypercholesterolemia (9) UTI (urinary tract infection) Code(s): N39.0 - URINARY TRACT INFECTION, SITE NOT SPECIFIED Qualifiers: Urinary tract infection type: site unspecified Hematuria presence: with hematuria Qualified Code(s): N39.0 - Urinary tract infection, site not specified; R31.9 - Hematuria, unspecified (10) Weakness Code(s): R53.1 - WEAKNESS
[2020-05-28 08:15] LABS: BASO % 0.5 % (0-2.0); EOS % 1.3 % (0-4.5); HEMATOCRIT 38.7 % (35.4-49); HEMOGLOBIN 12.9 GM/dL (11.7-16.9); LYMPH % 14.9 % (8-40); MCHC 33.2 g/dl (32.0-35.9); MEAN CELL VOLUME 96.3 fl (80-96); MEAN PLT VOLUME 8.8 fl (7.5-11.1); NEUT % 68.3 % (42.8-82.8); PLATELET COUNT 158 K/MM3 (134-434); RBC 4.02 M/mm3 (4.00-5.60); RDW 14.1 % (11.9-15.9); WHITE BLOOD COUNT 9.8 K/mm3 (4.0-10.0)
[2020-05-28 08:57] LABS: ALBUMIN 2.3 g/dl (3.4-5.0); BILIRUBIN,TOTAL 0.7 mg/dL (0.2-1); CALCIUM 7.9 mg/dL (8.5-10.1); CREATININE 0.7 mg/dL (0.55-1.3); MAGNESIUM 2.1 mg/dL (1.8-2.4); POTASSIUM 3.5 mmol/L (3.5-5.1); TOT PROT 5.5 g/dl (6.4-8.2)
--- NOTE | 2020-05-28 09:05 | PN ---
Progress Note, Physician History of Present Illness: No events on telemetry, denies recurrent near or true syncope. Afebrile. - Current Medication List Current Medications: Active Medications Albuterol Sulfate (Ventolin Hfa Inhaler -) 2 puff IH Q6H PRN PRN Reason: SHORTNESS OF BREATH Albuterol/Ipratropium (Duoneb -) 1 amp NEB Q6H PRN PRN Reason: SHORTNESS OF BREATH Aspirin (Ecotrin -) 81 mg PO DAILY [facility] Last Admin: 05/27/20 13:14 Dose: 81 mg Documented by: Atorvastatin Calcium (Lipitor -) 40 mg PO HS [facility] Last Admin: 05/27/20 22:37 Dose: 40 mg Documented by: Calcium Carbonate (Os-[place] 500mg -) 500 mg PO BID [facility] Last Admin: 05/27/20 22:37 Dose: 500 mg Documented by: Docusate Sodium (Colace -) 100 mg PO TID [facility] Last Admin: 05/28/20 06:54 Dose: 100 mg Documented by: Enoxaparin Sodium (Lovenox -) 40 mg SQ DAILY [facility] Last Admin: 05/27/20 11:54 Dose: 40 mg Documented by: Sodium Chloride (Normal Saline -) 1,000 mls @ 75 mls/hr IV ASDIR [facility] Last Admin: 05/28/20 06:56 Dose: 75 mls/hr Documented by: Ceftriaxone Sodium 1 gm/ (Dextrose) 50 mls @ 100 mls/hr IVPB Q24H [facility]; Protocol Last Admin: 05/27/20 22:37 Dose: 100 mls/hr Documented by: Lisinopril (Prinivil) 5 mg PO DAILY [facility] Last Admin: 05/27/20 11:55 Dose: 5 mg Documented by: Metoprolol Succinate (Toprol Xl -) 25 mg PO DAILY [facility] Last Admin: 05/27/20 11:55 Dose: 25 mg Documented by: Multivitamins/Minerals/Vitamin C (Tab-A-Vit -) 1 tab PO DAILY [facility] Last Admin: 05/27/20 11:55 Dose: 1 tab Documented by: Polyethylene Glycol (Miralax (For Daily Use) -) 17 gm PO DAILY [facility] Last Admin: 05/27/20 11:49 Dose: Not Given Documented by: - Objective Vital Signs: Vital Signs Temperature 98.4 F 05/28/20 01:29 Pulse Rate 67 05/28/20 06:00 Respiratory Rate 20 05/28/20 06:00 Blood Pressure 150/66 05/28/20 06:00 O2 Sat by Pulse Oximetry (%) 93 L 05/27/20 22:00 Constitutional: Yes: No Distress, Calm Neck: Yes: Supple Cardiovascular: Yes: Regular Rate and Rhythm Respiratory: Yes: Regular, CTA Bilaterally Gastrointestinal: Yes: Normal Bowel Sounds, Soft Edema: No Labs: CBC, BMP 05/28/20 07:50 05/28/20 07:50 INR, PTT INR 1.28 (0.83-1.09) H 05/23/20 05:40 - ....Imaging EKG: Report Reviewed (Tele: NSR PVC) Problem List - Problems (1) CAD (coronary artery disease) Code(s): I25.10 - ATHSCL HEART DISEASE OF [place] CORONARY ARTERY W/O ANG PCTRS Qualifiers: Coronary Disease-Associated Artery/Lesion type: [place] artery [place] vs. transplanted heart: [place] heart Associated angina: without angina Qualified Code(s): I25.10 - Atherosclerotic heart disease of [place] coronary artery without angina pectoris (2) COPD (chronic obstructive pulmonary disease) Code(s): J44.9 - CHRONIC OBSTRUCTIVE PULMONARY DISEASE, UNSPECIFIED Qualifiers: COPD type: unspecified COPD Qualified Code(s): J44.9 - Chronic obstructive pulmonary disease, unspecified (3) HTN (hypertension) Code(s): I10 - ESSENTIAL (PRIMARY) HYPERTENSION Qualifiers: Hypertension type: essential hypertension Qualified Code(s): I10 - Essential (primary) hypertension (4) Diastolic dysfunction Code(s): I51.89 - OTHER ILL-DEFINED HEART DISEASES (5) Demand ischemia Code(s): I24.8 - OTHER FORMS OF ACUTE ISCHEMIC HEART DISEASE (6) Hyperlipidemia Code(s): E78.5 - HYPERLIPIDEMIA, UNSPECIFIED Qualifiers: Hyperlipidemia type: pure hypercholesterolemia Qualified Code(s): E78.00 - Pure hypercholesterolemia, unspecified; E78.0 - Pure hypercholesterolemia Assessment/Plan 05/25/2020 Echo: Normal biventricular size and fxn, mild MR, TR, abnl LV compliance 1. Unwitnessed fall unclear mechanical versus a syncopal episode 2. Coronary artery disease post percutaneous coronary intervention with evidence of demand ischemic injury angina pectoris (Patient has not had coronary artery bypass graft surgery as stated in the notes) 3. Diastolic left ventricular dysfunction with class 0 [place] [employer] classification left ventricular failure 4. Hypertensive cardiovascular disease 5. 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 History of lung surgery partial resection 8. History of chronic obstructive pulmonary disease 9. Urinary tract infection 10. Chronic kidney disease 11. Abnormal liver function testing 12. Fever on empiric abx PLAN: 1. Continue Toprol-XL 25 qd and lisinopril 5 qd with dose titration as needed/as tolerated, troponins have plateaued 2. Continue Lipitor 40 qd 3. Resume daily Ecotrin 81 qd, replete K 4. Antibiotics as per the primary team 5. PT->gait training, DVT prophylaxis, d/c IVF, dysphagia diet, d/c telemetry
--- NOTE | 2020-05-28 10:05 | PN ---
Progress Note, [facility] - Note Progress Note: Suspected silent aspiration confirmed on MBS. Selected Entries 05/27/20 05/27/20 05/28/20 10:00 18:00 01:29 Breakfast 25% Lunch 50% Supper 25% Temperature 98.4 F Pulse Rate 80 Blood Pressure 139/76 05/28/20 06:00 Breakfast Lunch Supper Temperature Pulse Rate 67 Blood Pressure 150/66 Laboratory Tests 05/28/20 07:50 WBC 9.8 Continue puree/nectar thick liquid Medication Administration: Crushed with applesauce Supplement: Magic Cup, Ensure Pudding, Other (2 Renee HN) Aspiration precautions sign and recommendation sign posted for staff education Small Bites, Chin Tuck/Down, Clear Pocket Food, Facilitative Feeding, Safe Rate, 1/2 tsp. at a time, Elevate HOB during feed, Other (tell pt to swallow, palpate larynx for reflex)
[2020-05-28] MEDS: metoPROLOL SUCCINATE 25 MG TAB.SR.24H (FP) PO SCH (10:40)
[2020-05-28] MEDS: ASPIRIN COATED 81 MG TABLET.EC PO SCH (10:40)
[2020-05-28] MEDS: CALCIUM (OYSTER SHELL) 500 MG TABLET (FP) PO SCH ×2 (10:40→21:47)
[2020-05-28] MEDS: LISINOPRIL 5 MG TABLET (FP) PO SCH (10:40)
[2020-05-28] MEDS: POLYETHYLENE GLYCOL 3350 119 GM BTL PO SCH (10:40)
[2020-05-28] MEDS: MULTIVITAMINS (DAILY MVI) TABLET (FP) PO SCH (10:40)
[2020-05-28] MEDS: ENOXAPARIN NA (PORCINE) 40 MG/0.4 ML DISP.SYRIN SQ SCH (10:41)
--- NOTE | 2020-05-28 11:29 | PN ---
Physical Exam: SUBJECTIVE: Patient seen and examined at the bedside. Denies any malaise. Tells me his name and his sons name, but tells me he is in [facility] and the year is 2002. 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 on admission patient also noted to have toxic metabolic encephalopathy with moderate protein calorie malnutrition. He was found to have Klebsiella UTI and on ceftriaxone. ------ problem list: impaired swallowing rhabdo early lung infiltrate klebsiella UTI moderate protein calorie malnutrition elevated liver enzymes ------ covid status: negative as of 05/23/2020 Vital Signs Period Temp Pulse Resp BP Sys/Zamudio Pulse Ox Last 24 Hr 97.9 F-98.6 F 67-80 20-20 128-150/66-76 93-93 GENERAL: The patient is awake, forgetful, confused but can tell me his name and his sons name, aox 1 (not year or place) HEAD: Normal with no signs of trauma. EYES: PERRL, extraocular movements intact, sclera anicteric, conjunctiva clear. No ptosis. ENT: Ears normal, nares patent, oropharynx clear without exudates NECK: Trachea midline, full range of motion, supple. LUNGS: lung diminished posteriorly - on 2 liters of nasal cannula HEART: Regular rate and rhythm ABDOMEN: Soft, nontender, nondistended, normoactive bowel sounds EXTREMITIES: no edema. NEUROLOGICAL: Normal speech, gait not observed. PSYCH: Normal mood, normal affect. Laboratory Results - last 24 hr 05/26/20 05/27/20 05/28/20 17:00 09:51 07:50 WBC 9.8 RBC 4.02 Hgb 12.9 Hct 38.7 MCV 96.3 H MCH 32.0 MCHC 33.2 RDW 14.1 Plt Count 158 MPV 8.8 Absolute Neuts (auto) 6.7 Neutrophils % 68.3 Lymphocytes % 14.9 D Monocytes % 15.0 H Eosinophils % 1.3 D Basophils % 0.5 Nucleated RBC % 0 Sodium Potassium Chloride Carbon Dioxide Anion Gap BUN Creatinine Est GFR (CKD-EPI)AfAm Est GFR (CKD-EPI)NonAf Random Glucose Calcium 6.9 L* Magnesium Total Bilirubin AST ALT Alkaline Phosphatase Creatine Kinase Index 0.6 CK-MB (CK-2) 4.0 H Total Protein Albumin Hep A IgM Ab Confirm Negative Hep Bs Antigen Negative Hep B Core IgM Ab Negative Hepatitis C Ab (EIA) <0.1 05/28/20 07:50 WBC RBC Hgb Hct MCV MCH MCHC RDW Plt Count MPV Absolute Neuts (auto) Neutrophils % Lymphocytes % Monocytes % Eosinophils % Basophils % Nucleated RBC % Sodium 144 Potassium 3.5 Chloride 113 H Carbon Dioxide 22 Anion Gap 9 BUN 16.0 Creatinine 0.7 Est GFR (CKD-EPI)AfAm 103.30 Est GFR (CKD-EPI)NonAf 89.13 Random Glucose 96 Calcium 7.9 L Magnesium 2.1 Total Bilirubin 0.7 AST 106 H ALT 89 H Alkaline Phosphatase 125 H Creatine Kinase Index CK-MB (CK-2) Total Protein 5.5 L Albumin 2.3 L Hep A IgM Ab Confirm Hep Bs Antigen Hep B Core IgM Ab Hepatitis C Ab (EIA) Active Medications Generic Name Dose Route Start Last Admin Trade Name Freq PRN Reason Stop Dose Admin Albuterol Sulfate 2 puff 05/23/20 16:11 Ventolin Hfa Inhaler - IH Q6H PRN SHORTNESS OF BREATH Albuterol/Ipratropium 1 amp 05/24/20 13:05 Duoneb - NEB Q6H PRN SHORTNESS OF BREATH Aspirin 81 mg 05/23/20 15:15 05/28/20 10:40 Ecotrin - PO 81 mg DAILY [facility] Administration Atorvastatin Calcium 40 mg 05/23/20 22:00 05/27/20 22:37 Lipitor - PO 40 mg HS [facility] Administration Calcium Carbonate 500 mg 05/27/20 12:15 05/28/20 10:40 Os-Kwabena 500mg - PO 500 mg BID [facility] Administration Docusate Sodium 100 mg 05/26/20 22:00 05/28/20 06:54 Colace - PO 100 mg TID [facility] Administration Enoxaparin Sodium 40 mg 05/23/20 10:00 05/28/20 10:41 Lovenox - SQ 40 mg DAILY [facility] Administration Sodium Chloride 1,000 mls @ 75 mls/hr 05/23/20 00:30 05/28/20 06:56 Normal Saline - IV 75 mls/hr ASDIR [facility] Administration Ceftriaxone Sodium 1 gm/ 50 mls @ 100 mls/hr 05/23/20 22:00 05/27/20 22:37 Dextrose IVPB 100 mls/hr Q24H [facility] Administration Protocol Lisinopril 5 mg 05/27/20 10:00 05/28/20 10:40 Prinivil PO 5 mg DAILY [facility] Administration Metoprolol Succinate 25 mg 05/23/20 15:15 05/28/20 10:40 Toprol Xl - PO 25 mg DAILY [facility] Administration Multivitamins/Minerals/Vitamin C 1 tab 05/24/20 10:00 05/28/20 10:40 Tab-A-Vit - PO 1 tab DAILY [facility] Administration Polyethylene Glycol 17 gm 05/24/20 10:00 05/28/20 10:40 Miralax (For Daily Use) - PO Not Given DAILY [facility] ASSESSMENT/PLAN: Problem List - Problems (1) UTI due to Klebsiella species Assessment/Plan: on ceftriaxone day 6 Code(s): N39.0 - URINARY TRACT INFECTION, SITE NOT SPECIFIED; B96.89 - OTH BACTERIAL AGENTS THE CAUSE OF DISEASES CLASSD ELSWHR (2) Acute metabolic encephalopathy Assessment/Plan: head ct negative, blood cultures negative to date UC + Kleb, on Ceftriaxone 1 gram daily ID consulted for increased WBC, recommend to continue to monitor and if WBC increases, may consider switching antbiotic therapy swallow eval showed need for aspiration precautions with nectar thick fluids monitor mental status Code(s): G93.41 - METABOLIC ENCEPHALOPATHY (3) CAD (coronary artery disease) Assessment/Plan: on lipitor Code(s): I25.10 - ATHSCL HEART DISEASE OF [place] CORONARY ARTERY W/O ANG PCTRS Qualifiers: Coronary Disease-Associated Artery/Lesion type: [place] artery [place] vs. transplanted heart: [place] heart Associated angina: without angina Qualified Code(s): I25.10 - Atherosclerotic heart disease of [place] coronary artery without angina pectoris (4) COPD (chronic obstructive pulmonary disease) Assessment/Plan: mild wheezing of anterior upper lobes, diminished otherwise. on 2 liters of nasal cannula pulmonary consulted and following chest ct shows moderate to severe COPD. will start on symbicort. Code(s): J44.9 - CHRONIC OBSTRUCTIVE PULMONARY DISEASE, UNSPECIFIED Qualifiers: COPD type: unspecified COPD Qualified Code(s): J44.9 - Chronic obstructive pulmonary disease, unspecified (5) Constipation Assessment/Plan: bowel regimen ordered Code(s): K59.00 - CONSTIPATION, UNSPECIFIED (6) Demand ischemia Assessment/Plan: cardiology following Code(s): I24.8 - OTHER FORMS OF ACUTE ISCHEMIC HEART DISEASE (7) Diastolic dysfunction Assessment/Plan: no signs of volume overload. cardiology following lisinopril added Code(s): I51.89 - OTHER ILL-DEFINED HEART DISEASES (8) Moderate protein-calorie malnutrition Assessment/Plan: on supplemnts, RD following Code(s): E44.0 - MODERATE PROTEIN-CALORIE MALNUTRITION (9) Prophylactic measure Code(s): Z29.9 - ENCOUNTER FOR PROPHYLACTIC MEASURES, UNSPECIFIED (10) Rhabdomyolysis Assessment/Plan: CPK improving, daily labs continue ivf Code(s): M62.82 - RHABDOMYOLYSIS (11) DVT prophylaxis Assessment/Plan: on lovenox Code(s): Z29.9 - ENCOUNTER FOR PROPHYLACTIC MEASURES, UNSPECIFIED (12) Fall Assessment/Plan: physical therapy evaluation. patient for SNF placement Code(s): W19.XXXA - UNSPECIFIED FALL, INITIAL ENCOUNTER Visit type - Emergency Visit Emergency Visit: Yes ED Registration Date: 05/22/20 Care time: The patient presented to the Emergency Department on the above date and was hospitalized for further evaluation of their emergent condition. - New Patient This patient is new to me today: No - Critical Care Critical Care patient: No - Discharge Referral Referred to [facility] Med [facility] No - Medication Review Med list reviewed for High Risk Meds patients 65 and older: Yes
--- NOTE | 2020-05-28 13:21 | PN ---
Progress Note, Physician History of Present Illness: stable denies any complaints - Current Medication List Current Medications: Active Medications Albuterol Sulfate (Ventolin Hfa Inhaler -) 2 puff IH Q6H PRN PRN Reason: SHORTNESS OF BREATH Albuterol/Ipratropium (Duoneb -) 1 amp NEB Q6H PRN PRN Reason: SHORTNESS OF BREATH Aspirin (Ecotrin -) 81 mg PO DAILY [facility] Last Admin: 05/28/20 10:40 Dose: 81 mg Documented by: Atorvastatin Calcium (Lipitor -) 40 mg PO HS [facility] Last Admin: 05/27/20 22:37 Dose: 40 mg Documented by: Calcium Carbonate (Os-[place] 500mg -) 500 mg PO BID [facility] Last Admin: 05/28/20 10:40 Dose: 500 mg Documented by: Docusate Sodium (Colace -) 100 mg PO TID [facility] Last Admin: 05/28/20 06:54 Dose: 100 mg Documented by: Enoxaparin Sodium (Lovenox -) 40 mg SQ DAILY [facility] Last Admin: 05/28/20 10:41 Dose: 40 mg Documented by: Sodium Chloride (Normal Saline -) 1,000 mls @ 75 mls/hr IV ASDIR [facility] Last Admin: 05/28/20 06:56 Dose: 75 mls/hr Documented by: Ceftriaxone Sodium 1 gm/ (Dextrose) 50 mls @ 100 mls/hr IVPB Q24H [facility]; Protocol Last Admin: 05/27/20 22:37 Dose: 100 mls/hr Documented by: Lisinopril (Prinivil) 5 mg PO DAILY [facility] Last Admin: 05/28/20 10:40 Dose: 5 mg Documented by: Metoprolol Succinate (Toprol Xl -) 25 mg PO DAILY [facility] Last Admin: 05/28/20 10:40 Dose: 25 mg Documented by: Multivitamins/Minerals/Vitamin C (Tab-A-Vit -) 1 tab PO DAILY [facility] Last Admin: 05/28/20 10:40 Dose: 1 tab Documented by: Polyethylene Glycol (Miralax (For Daily Use) -) 17 gm PO DAILY [facility] Last Admin: 05/28/20 10:40 Dose: Not Given Documented by: - Objective Vital Signs: Vital Signs Temperature 98.4 F 05/28/20 01:29 Pulse Rate 67 05/28/20 06:00 Respiratory Rate 20 05/28/20 06:00 Blood Pressure 150/66 05/28/20 06:00 O2 Sat by Pulse Oximetry (%) 93 L 05/27/20 22:00 Constitutional: Yes: No Distress, Calm Neck: Yes: Supple, Trachea Midline Cardiovascular: Yes: S1, S2 Respiratory: Yes: Regular, CTA Bilaterally Gastrointestinal: Yes: Normal Bowel Sounds, Soft Musculoskeletal: Yes: WNL Extremities: Yes: WNL Neurological: Yes: Alert Psychiatric: Yes: Alert Labs: CBC, BMP 05/28/20 07:50 05/28/20 07:50 INR, PTT INR 1.28 (0.83-1.09) H 05/23/20 05:40 Assessment/Plan Problem List - Problems (1) Acute metabolic encephalopathy Code(s): G93.41 - METABOLIC ENCEPHALOPATHY (2) CAD (coronary artery disease) Code(s): I25.10 - ATHSCL HEART DISEASE OF [place] CORONARY ARTERY W/O ANG PCTRS Qualifiers: Coronary Disease-Associated Artery/Lesion type: [place] artery [place] vs. transplanted heart: [place] heart Associated angina: without angina Qualified Code(s): I25.10 - Atherosclerotic heart disease of [place] coronary artery without angina pectoris (3) COPD (chronic obstructive pulmonary disease) Code(s): J44.9 - CHRONIC OBSTRUCTIVE PULMONARY DISEASE, UNSPECIFIED Qualifiers: COPD type: unspecified COPD Qualified Code(s): J44.9 - Chronic obstructive pulmonary disease, unspecified (4) Demand ischemia Code(s): I24.8 - OTHER FORMS OF ACUTE ISCHEMIC HEART DISEASE (5) Diastolic dysfunction Code(s): I51.89 - OTHER ILL-DEFINED HEART DISEASES (6) Fall Code(s): W19.XXXA - UNSPECIFIED FALL, INITIAL ENCOUNTER (7) HTN (hypertension) Code(s): I10 - ESSENTIAL (PRIMARY) HYPERTENSION Qualifiers: Hypertension type: essential hypertension Qualified Code(s): I10 - Essential (primary) hypertension (8) Hyperlipidemia Code(s): E78.5 - HYPERLIPIDEMIA, UNSPECIFIED Qualifiers: Hyperlipidemia type: pure hypercholesterolemia Qualified Code(s): E78.00 - Pure hypercholesterolemia, unspecified; E78.0 - Pure hypercholesterolemia (9) UTI (urinary tract infection) Code(s): N39.0 - URINARY TRACT INFECTION, SITE NOT SPECIFIED Qualifiers: Urinary tract infection type: site unspecified Hematuria presence: with hematuria Qualified Code(s): N39.0 - Urinary tract infection, site not specified; R31.9 - Hematuria, unspecified (10) Weakness Code(s): R53.1 - WEAKNESS plan continue abx monitor
[2020-05-28 19:07] LABS: HEP B CORE AB, TOT Negative (Negative)
[2020-05-28] MEDS ORDERED: ALBUTEROL SO4 HFA INHALER IH PRN (20:10)
[2020-05-28] MEDS ORDERED: ALBUTEROL SO4 2.5/IPRATROPIUM 0.5 INH SOL 3 ML VIAL.NEB. NEB PRN (20:10)
[2020-05-28] MEDS ORDERED: cefTRIAXone SODIUM 1 GM VIAL ONE (21:41)
[2020-05-28] MEDS ORDERED: DEXTROSE 5%-WATER - 50 ML IVPB ONE (21:42)
[2020-05-28] MEDS: CEFTRIAXONE 1 GM in DEXTROSE 5%-WATER - 50 ML IVPB SCH (21:47)
[2020-05-28] MEDS: BUDESONIDE/FORMETEROL FUMARATE 80/4.5 mcg INHALER IH SCH (21:47)
[2020-05-28] MEDS ORDERED: ATORVASTATIN CA 40 MG TABLET (FP) PO SCH (22:00)
[2020-05-29] MEDS: DOCUSATE SODIUM 100 MG CAPSULE (FP) PO SCH ×3 (05:53→22:52)
--- NOTE | 2020-05-29 08:01 | PN ---
Progress Note, Physician History of Present Illness: PULMONARY AWAKE,CONFUSED,-RESP DISTRESS - Current Medication List Current Medications: Active Medications Albuterol/Ipratropium (Duoneb -) 1 amp NEB Q6H PRN PRN Reason: SHORTNESS OF BREATH Aspirin (Ecotrin -) 81 mg PO DAILY [facility] Atorvastatin Calcium (Lipitor -) 40 mg PO HS [facility] Last Admin: 05/28/20 21:47 Dose: 40 mg Documented by: Budesonide/Formoterol Fumarate (Symbicort 80/4.5mcg -) 2 puff IH BID [facility] Last Admin: 05/28/20 21:47 Dose: 2 puff Documented by: Calcium Carbonate (Os-[place] 500mg -) 500 mg PO BID [facility] Last Admin: 05/28/20 21:47 Dose: 500 mg Documented by: Docusate Sodium (Colace -) 100 mg PO TID [facility] Last Admin: 05/29/20 05:53 Dose: Not Given Documented by: Enoxaparin Sodium (Lovenox -) 40 mg SQ DAILY [facility] Ceftriaxone Sodium 1 gm/ (Dextrose) 50 mls @ 100 mls/hr IVPB Q24H [facility]; Protocol Last Admin: 05/28/20 21:47 Dose: 100 mls/hr Documented by: Lisinopril (Prinivil) 5 mg PO DAILY [facility] Metoprolol Succinate (Toprol Xl -) 25 mg PO DAILY [facility] Multivitamins/Minerals/Vitamin C (Tab-A-Vit -) 1 tab PO DAILY [facility] Polyethylene Glycol (Miralax (For Daily Use) -) 17 gm PO DAILY [facility] - Objective Vital Signs: Vital Signs Temperature 98.8 F 05/29/20 06:20 Pulse Rate 61 05/29/20 06:20 Respiratory Rate 20 05/29/20 06:20 Blood Pressure 137/55 L 05/29/20 06:20 O2 Sat by Pulse Oximetry (%) 95 05/29/20 06:20 Constitutional: Yes: Calm, Thin Eyes: Yes: WNL HENT: Yes: WNL Neck: Yes: WNL Cardiovascular: Yes: Regular Rate and Rhythm, S1, S2 Respiratory: Yes: Rhonchi (FEW SCATTERED RHONCHI) Gastrointestinal: Yes: Normal Bowel Sounds, Soft Extremities: Yes: WNL Edema: No Labs: CBC, BMP Problem List - Problems (1) Acute metabolic encephalopathy Code(s): G93.41 - METABOLIC ENCEPHALOPATHY (2) CAD (coronary artery disease) Code(s): I25.10 - ATHSCL HEART DISEASE OF [place] CORONARY ARTERY W/O ANG PCTRS Qualifiers: Coronary Disease-Associated Artery/Lesion type: [place] artery [place] vs. transplanted heart: [place] heart Associated angina: without angina Qualified Code(s): I25.10 - Atherosclerotic heart disease of [place] coronary artery without angina pectoris (3) COPD (chronic obstructive pulmonary disease) Code(s): J44.9 - CHRONIC OBSTRUCTIVE PULMONARY DISEASE, UNSPECIFIED Qualifiers: COPD type: unspecified COPD Qualified Code(s): J44.9 - Chronic obstructive pulmonary disease, unspecified (4) Demand ischemia Code(s): I24.8 - OTHER FORMS OF ACUTE ISCHEMIC HEART DISEASE (5) Diastolic dysfunction Code(s): I51.89 - OTHER ILL-DEFINED HEART DISEASES (6) Fall Code(s): W19.XXXA - UNSPECIFIED FALL, INITIAL ENCOUNTER (7) HTN (hypertension) Code(s): I10 - ESSENTIAL (PRIMARY) HYPERTENSION Qualifiers: Hypertension type: essential hypertension Qualified Code(s): I10 - Essential (primary) hypertension (8) Hyperlipidemia Code(s): E78.5 - HYPERLIPIDEMIA, UNSPECIFIED Qualifiers: Hyperlipidemia type: pure hypercholesterolemia Qualified Code(s): E78.00 - Pure hypercholesterolemia, unspecified; E78.0 - Pure hypercholesterolemia (9) UTI (urinary tract infection) Code(s): N39.0 - URINARY TRACT INFECTION, SITE NOT SPECIFIED Qualifiers: Urinary tract infection type: site unspecified Hematuria presence: with hematuria Qualified Code(s): N39.0 - Urinary tract infection, site not specified; R31.9 - Hematuria, unspecified (10) Weakness Code(s): R53.1 - WEAKNESS Assessment/Plan IMP S/P FALL ?SYNCOPE R/O RLL INFILTRATE LIKELY ASPIRATION ALTERED MENTAL STATUS improving COPD UTI 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 transplanted heart: [place] heart Associated angina: without angina Qualified Code(s): I25.10 - Atherosclerotic heart disease of [place] coronary artery without angina pectoris (3) COPD (chronic obstructive pulmonary disease) Code(s): J44.9 - CHRONIC OBSTRUCTIVE PULMONARY DISEASE, UNSPECIFIED Qualifiers: COPD type: unspecified COPD Qualified Code(s): J44.9 - Chronic obstructive pulmonary disease, unspecified (4) Demand ischemia Code(s): I24.8 - OTHER FORMS OF ACUTE ISCHEMIC HEART DISEASE (5) Diastolic dysfunction Code(s): I51.89 - OTHER ILL-DEFINED HEART DISEASES (6) Fall Code(s): W19.XXXA - UNSPECIFIED FALL, INITIAL ENCOUNTER (7) HTN (hypertension) Code(s): I10 - ESSENTIAL (PRIMARY) HYPERTENSION Qualifiers: Hypertension type: essential hypertension Qualified Code(s): I10 - Essential (primary) hypertension (8) Hyperlipidemia Code(s): E78.5 - HYPERLIPIDEMIA, UNSPECIFIED Qualifiers: Hyperlipidemia type: pure hypercholesterolemia Qualified Code(s): E78.00 - Pure hypercholesterolemia, unspecified; E78.0 - Pure hypercholesterolemia (9) UTI (urinary tract infection) Code(s): N39.0 - URINARY TRACT INFECTION, SITE NOT SPECIFIED Qualifiers: Urinary tract infection type: site unspecified Hematuria presence: with hematuria Qualified Code(s): N39.0 - Urinary tract infection, site not specified; R31.9 - Hematuria, unspecified (10) Weakness Code(s): R53.1 - WEAKNESS
--- NOTE | 2020-05-29 08:43 | PN ---
Progress Note, Physician History of Present Illness: Denies recurrent near or true syncope. Afebrile. - Current Medication List Current Medications: Active Medications Albuterol/Ipratropium (Duoneb -) 1 amp NEB Q6H PRN PRN Reason: SHORTNESS OF BREATH Aspirin (Ecotrin -) 81 mg PO DAILY [facility] Atorvastatin Calcium (Lipitor -) 40 mg PO HS [facility] Last Admin: 05/28/20 21:47 Dose: 40 mg Documented by: Budesonide/Formoterol Fumarate (Symbicort 80/4.5mcg -) 2 puff IH BID [facility] Last Admin: 05/28/20 21:47 Dose: 2 puff Documented by: Calcium Carbonate (Os-[place] 500mg -) 500 mg PO BID [facility] Last Admin: 05/28/20 21:47 Dose: 500 mg Documented by: Docusate Sodium (Colace -) 100 mg PO TID [facility] Last Admin: 05/29/20 05:53 Dose: Not Given Documented by: Enoxaparin Sodium (Lovenox -) 40 mg SQ DAILY [facility] Ceftriaxone Sodium 1 gm/ (Dextrose) 50 mls @ 100 mls/hr IVPB Q24H [facility]; Protocol Last Admin: 05/28/20 21:47 Dose: 100 mls/hr Documented by: Lisinopril (Prinivil) 5 mg PO DAILY [facility] Metoprolol Succinate (Toprol Xl -) 25 mg PO DAILY [facility] Multivitamins/Minerals/Vitamin C (Tab-A-Vit -) 1 tab PO DAILY [facility] Polyethylene Glycol (Miralax (For Daily Use) -) 17 gm PO DAILY [facility] - Objective Vital Signs: Vital Signs Temperature 98.8 F 05/29/20 06:20 Pulse Rate 61 05/29/20 06:20 Respiratory Rate 20 05/29/20 06:20 Blood Pressure 137/55 L 05/29/20 06:20 O2 Sat by Pulse Oximetry (%) 95 05/29/20 06:20 Constitutional: Yes: No Distress, Calm, Thin Neck: Yes: Supple Cardiovascular: Yes: Regular Rate and Rhythm Respiratory: Yes: Regular, CTA Bilaterally Gastrointestinal: Yes: Normal Bowel Sounds, Soft Edema: No Labs: INR, PTT INR 1.28 (0.83-1.09) H 05/23/20 05:40 Problem List - Problems (1) CAD (coronary artery disease) Code(s): I25.10 - ATHSCL HEART DISEASE OF [place] CORONARY ARTERY W/O ANG PCTRS Qualifiers: Coronary Disease-Associated Artery/Lesion type: [place] artery [place] vs. transplanted heart: [place] heart Associated angina: without angina Qualified Code(s): I25.10 - Atherosclerotic heart disease of [place] coronary artery without angina pectoris (2) COPD (chronic obstructive pulmonary disease) Code(s): J44.9 - CHRONIC OBSTRUCTIVE PULMONARY DISEASE, UNSPECIFIED Qualifiers: COPD type: unspecified COPD Qualified Code(s): J44.9 - Chronic obstructive pulmonary disease, unspecified (3) HTN (hypertension) Code(s): I10 - ESSENTIAL (PRIMARY) HYPERTENSION Qualifiers: Hypertension type: essential hypertension Qualified Code(s): I10 - E ssential (primary) hypertension (4) Diastolic dysfunction Code(s): I51.89 - OTHER ILL-DEFINED HEART DISEASES (5) Demand ischemia Code(s): I24.8 - OTHER FORMS OF ACUTE ISCHEMIC HEART DISEASE (6) Hyperlipidemia Code(s): E78.5 - HYPERLIPIDEMIA, UNSPECIFIED Qualifiers: Hyperlipidemia type: pure hypercholesterolemia Qualified Code(s): E78.00 - Pure hypercholesterolemia, unspecified; E78.0 - Pure hypercholesterolemia Assessment/Plan 05/25/2020 Echo: Normal biventricular size and fxn, mild MR, TR, abnl LV compliance 1. Unwitnessed fall unclear mechanical versus a syncopal episode 2. Coronary artery disease post percutaneous coronary intervention with evidence of demand ischemic injury angina pectoris (Patient has not had coronary artery bypass graft surgery as stated in the notes) 3. Diastolic left ventricular dysfunction with class 0 [place] [employer] classification left ventricular failure 4. Hypertensive cardiovascular disease 5. 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 History of lung surgery partial resection 8. History of chronic obstructive pulmonary disease 9. Urinary tract infection 10. Chronic kidney disease 11. Abnormal liver function testing 12. Fever on empiric abx PLAN: 1. Continue Toprol-XL 25 qd and lisinopril 5 qd with dose titration as needed/as tolerated, troponins have plateaued 2. Continue Lipitor 40 qd and Ecotrin 81 qd, repleted K 3. Antibiotics as per the primary team 4. PT->gait training, DVT prophylaxis, dysphagia diet
[2020-05-29 09:23] LABS: BASO % 0.8 % (0-2.0); EOS % 2.5 % (0-4.5); HEMATOCRIT 38.8 % (35.4-49); HEMOGLOBIN 12.7 GM/dL (11.7-16.9); LYMPH % 19.2 % (8-40); MCH 31.7 pg (25.7-33.7); MCHC 32.9 g/dl (32.0-35.9); MEAN CELL VOLUME 96.4 fl (80-96); MEAN PLT VOLUME 9.4 fl (7.5-11.1); MONO % 12.3 % (3.8-10.2); NEUT % 65.2 % (42.8-82.8); PLATELET COUNT 191 K/MM3 (134-434); RBC 4.02 M/mm3 (4.00-5.60); RDW 14.5 % (11.9-15.9); WHITE BLOOD COUNT 8.4 K/mm3 (4.0-10.0)
[2020-05-29 09:29] LABS: ALBUMIN 2.2 g/dl (3.4-5.0); BILIRUBIN,TOTAL 0.8 mg/dL (0.2-1); CALCIUM 7.6 mg/dL (8.5-10.1); CREATININE 0.6 mg/dL (0.55-1.3); POTASSIUM 3.5 mmol/L (3.5-5.1); TOT PROT 5.4 g/dl (6.4-8.2)
[2020-05-29] MEDS: MULTIVITAMINS (DAILY MVI) TABLET (FP) PO SCH (10:29)
[2020-05-29] MEDS: ENOXAPARIN NA (PORCINE) 40 MG/0.4 ML DISP.SYRIN SQ SCH (10:29)
[2020-05-29] MEDS: ASPIRIN COATED 81 MG TABLET.EC PO SCH (10:30)
[2020-05-29] MEDS: CALCIUM (OYSTER SHELL) 500 MG TABLET (FP) PO SCH ×2 (10:30→22:51)
[2020-05-29] MEDS: metoPROLOL SUCCINATE 25 MG TAB.SR.24H (FP) PO SCH (10:30)
[2020-05-29] MEDS: LISINOPRIL 5 MG TABLET (FP) PO SCH (10:35)
[2020-05-29] MEDS: POLYETHYLENE GLYCOL 3350 119 GM BTL PO SCH ×2 (10:36→10:49)
--- NOTE | 2020-05-29 10:43 | PN ---
Progress Note, LODGE OFFICER - Note Progress Note: Suspected silent aspiration confirmed on MBS. Selected Entries 05/27/20 05/27/20 05/28/20 10:00 18:00 01:29 Breakfast 25% Lunch 50% Supper 25% Temperature 98.4 F Pulse Rate 80 Blood Pressure 139/76 05/28/20 06:00 Breakfast Lunch Supper Temperature Pulse Rate 67 Blood Pressure 150/66 Laboratory Tests 05/28/20 07:50 WBC 9.8 Selected Entries 05/28/20 05/28/20 05/29/20 10:52 18:00 03:00 Breakfast 25% Diet Tolerated Poor Supper 25% Temperature 99 F Pulse Rate 66 Blood Pressure 144/66 O2 Sat by Pulse 92 L Oximetry (%) 05/29/20 06:20 Breakfast Diet Tolerated Supper Temperature 98.8 F Pulse Rate 61 Blood Pressure 137/55 L O2 Sat by Pulse 95 Oximetry (%) Laboratory Tests 05/29/20 07:49 WBC 8.4 Continue puree/nectar thick liquid Medication Administration: Crushed with applesauce Supplement: Magic Cup, Ensure Pudding, Other (2 Renee HN) Aspiration precautions sign and recommendation sign posted for staff education Small Bites, Chin Tuck/Down, Clear Pocket Food, Facilitative Feeding, Safe Rate, 1/2 tsp. at a time, Elevate HOB during feed, Other (tell pt to swallow, palpate larynx for reflex) Reviewed case with LABEL TACKER, who suspects Parkinsons. Neuro consult placed
[2020-05-29] MEDS: BUDESONIDE/FORMETEROL FUMARATE 80/4.5 mcg INHALER IH SCH ×2 (10:44→22:52)
--- NOTE | 2020-05-29 12:00 | PN ---
Physical Exam: SUBJECTIVE: Patient seen and examined. was restless earlier today, now calmer. 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 on admission patient also noted to have toxic metabolic encephalopathy with moderate protein calorie malnutrition. He was found to have Klebsiella UTI and on ceftriaxone. ------ problem list: impaired swallowing rhabdo early lung infiltrate klebsiella UTI moderate protein calorie malnutrition elevated liver enzymes ------ covid status: negative as of 05/23/2020 Period Temp Pulse Resp BP Sys/Zamudio Pulse Ox Last 24 Hr 97.2 F-99 F 61-72 18-20 127-149/50-77 92-98 GENERAL: The patient is awake, forgetful, confused but can tell me his name and his sons name, aox 1 (not year or place) HEAD: Normal with no signs of trauma. EYES: PERRL, extraocular movements intact, sclera anicteric, conjunctiva clear. No ptosis. ENT: Ears normal, nares patent, oropharynx clear without exudates NECK: Trachea midline, full range of motion, supple. LUNGS: lung diminished posteriorly - on 2 liters of nasal cannula HEART: Regular rate and rhythm ABDOMEN: Soft, nontender, nondistended, normoactive bowel sounds EXTREMITIES: no edema. NEUROLOGICAL: Normal speech, gait not observed. PSYCH: Normal mood, normal affect. Laboratory Results - last 24 hr 05/26/20 05/28/20 05/28/20 17:00 07:50 13:50 WBC RBC Hgb Hct MCV MCH MCHC RDW Plt Count MPV Absolute Neuts (auto) Neutrophils % Lymphocytes % Monocytes % Eosinophils % Basophils % Nucleated RBC % Sodium 144 Potassium 3.5 Chloride 113 H Carbon Dioxide 22 Anion Gap 9 BUN 16.0 Creatinine 0.7 Est GFR (CKD-EPI)AfAm 103.30 Est GFR (CKD-EPI)NonAf 89.13 Random Glucose 96 Calcium 7.9 L Magnesium 2.1 Total Bilirubin 0.7 AST 106 H ALT 89 H Alkaline Phosphatase 125 H Creatine Kinase 453 H < 7 L Creatine Kinase Index 0.8 CK-MB (CK-2) 3.9 H Total Protein 5.5 L Albumin 2.3 L Hep A IgM Ab Confirm Negative Hepatitis A Ab Total Positive H Hep Bs Antigen Negative Hep Bs Antibody Non reactive Hep B Core Total Ab Negative Hep B Core IgM Ab Negative Hepatitis Be Antibody Negative Hepatitis Be Antigen Negative 05/29/20 05/29/20 07:49 07:49 WBC 8.4 RBC 4.02 Hgb 12.7 Hct 38.8 MCV 96.4 H MCH 31.7 MCHC 32.9 RDW 14.5 Plt Count 191 D MPV 9.4 Absolute Neuts (auto) 5.5 Neutrophils % 65.2 Lymphocytes % 19.2 D Monocytes % 12.3 H Eosinophils % 2.5 D Basophils % 0.8 Nucleated RBC % 0 Sodium 145 Potassium 3.5 Chloride 113 H Carbon Dioxide 24 Anion Gap 8 BUN 14.0 Creatinine 0.6 Est GFR (CKD-EPI)AfAm 110.06 Est GFR (CKD-EPI)NonAf 94.96 Random Glucose 83 Calcium 7.6 L Magnesium 2.0 Total Bilirubin 0.8 AST 100 H ALT 85 H Alkaline Phosphatase 116 Creatine Kinase 407 H Creatine Kinase Index 1.0 CK-MB (CK-2) 4.2 H Total Protein 5.4 L Albumin 2.2 L Hep A IgM Ab Confirm Hepatitis A Ab Total Hep Bs Antigen Hep Bs Antibody Hep B Core Total Ab Hep B Core IgM Ab Hepatitis Be Antibody Hepatitis Be Antigen Active Medications Generic Name Dose Route Start Last Admin Trade Name Freq PRN Reason Stop Dose Admin Albuterol/Ipratropium 1 amp 05/28/20 20:10 Duoneb - NEB Q6H PRN SHORTNESS OF BREATH Aspirin 81 mg 05/29/20 10:00 05/29/20 10:30 Ecotrin - PO 81 mg DAILY [facility] Administration Atorvastatin Calcium 40 mg 05/28/20 22:00 05/28/20 21:47 Lipitor - PO 40 mg HS [facility] Administration Budesonide/Formoterol Fumarate 2 puff 05/28/20 22:00 05/29/20 10:44 Symbicort 80/4.5mcg - IH 2 puff BID [facility] Administration Calcium Carbonate 500 mg 05/28/20 22:00 05/29/20 10:30 Os-[place] 500mg - PO 500 mg BID [facility] Administration Docusate Sodium 100 mg 05/28/20 22:00 05/29/20 05:53 Colace - PO Not Given TID [facility] Enoxaparin Sodium 40 mg 05/29/20 10:00 05/29/20 10:29 Lovenox - SQ 40 mg DAILY [facility] Administration Ceftriaxone Sodium 1 gm/ 50 mls @ 100 mls/hr 05/28/20 22:00 05/28/20 21:47 Dextrose IVPB 100 mls/hr Q24H [facility] Administration Protocol Lisinopril 5 mg 05/29/20 10:00 05/29/20 10:35 Prinivil PO 5 mg DAILY [facility] Administration Metoprolol Succinate 25 mg 05/29/20 10:00 05/29/20 10:30 Toprol Xl - PO 25 mg DAILY [facility] Administration Multivitamins/Minerals/Vitamin C 1 tab 05/29/20 10:00 05/29/20 10:29 Tab-A-Vit - PO 1 tab DAILY [facility] Administration Polyethylene Glycol 17 gm 05/29/20 10:00 05/29/20 10:49 Miralax (For Daily Use) - PO Not Given DAILY [facility] ASSESSMENT/PLAN: Problem List - Problems (1) UTI due to Klebsiella species Assessment/Plan: on ceftriaxone day 7. continue Iv per ID Code(s): N39.0 - URINARY TRACT INFECTION, SITE NOT SPECIFIED; B96.89 - OTH BACTERIAL AGENTS THE CAUSE OF DISEASES CLASSD ELSWHR (2) Acute metabolic encephalopathy Assessment/Plan: head ct negative, blood cultures negative to date UC + Kleb, on Ceftriaxone 1 gram daily ID consulted for increased WBC, recommend to continue to monitor and if WBC increases, may consider switching antbiotic therapy swallow eval showed need for aspiration precautions with nectar thick fluids monitor mental status Code(s): G93.41 - METABOLIC ENCEPHALOPATHY (3) CAD (coronary artery disease) Assessment/Plan: on lipitor Code(s): I25.10 - ATHSCL HEART DISEASE OF [place] CORONARY ARTERY W/O ANG PCTRS Qualifiers: Coronary Disease-Associated Artery/Lesion type: [place] artery [place] vs. transplanted heart: [place] heart Associated angina: without angina Qualified Code(s): I25.10 - Atherosclerotic heart disease of [place] coronary artery without angina pectoris (4) COPD (chronic obstructive pulmonary disease) Assessment/Plan: mild wheezing of anterior upper lobes, diminished otherwise. on 2 liters of nasal cannula pulmonary consulted and following chest ct shows moderate to severe COPD. will start on symbicort. Code(s): J44.9 - CHRONIC OBSTRUCTIVE PULMONARY DISEASE, UNSPECIFIED Qualifiers: COPD type: unspecified COPD Qualified Code(s): J44.9 - Chronic obstructive pulmonary disease, unspecified (5) Constipation Assessment/Plan: bowel regimen ordered Code(s): K59.00 - CONSTIPATION, UNSPECIFIED (6) Demand ischemia Assessment/Plan: cardiology following Code(s): I24.8 - OTHER FORMS OF ACUTE ISCHEMIC HEART DISEASE (7) Diastolic dysfunction Assessment/Plan: no signs of volume overload. cardiology following lisinopril added Code(s): I51.89 - OTHER ILL-DEFINED HEART DISEASES (8) Moderate protein-calorie malnutrition Assessment/Plan: on supplemnts, RD following Code(s): E44.0 - MODERATE PROTEIN-CALORIE MALNUTRITION (9) Prophylactic measure Code(s): Z29.9 - ENCOUNTER FOR PROPHYLACTIC MEASURES, UNSPECIFIED (10) Rhabdomyolysis Assessment/Plan: CPK improving, daily labs. Code(s): M62.82 - RHABDOMYOLYSIS (11) Fall Assessment/Plan: physical therapy evaluation. patient for SNF placement Code(s): W19.XXXA - UNSPECIFIED FALL, INITIAL ENCOUNTER (12) Elevated liver enzymes Assessment/Plan: per ultrasound, mild fatty infiltration of the liver noted. abdominal aortic anyeursm wit stent and possible gallbladder polyp liver enzymes trending down Code(s): R74.8 - ABNORMAL LEVELS OF OTHER SERUM ENZYMES (13) DVT prophylaxis Assessment/Plan: on lovenox Code(s): Z29.9 - ENCOUNTER FOR PROPHYLACTIC MEASURES, UNSPECIFIED Visit type - Emergency Visit Emergency Visit: Yes ED Registration Date: 05/22/20 Care time: The patient presented to the Emergency Department on the above date and was hospitalized for further evaluation of their emergent condition. - New Patient This patient is new to me today: No - Critical Care Critical Care patient: No - Discharge Referral Referred to [facility] No - Medication Review Med list reviewed for High Risk Meds patients 65 and older: Yes
--- NOTE | 2020-05-29 12:28 | PN ---
Progress Note, Physician History of Present Illness: stable no new issues confused - Current Medication List Current Medications: Active Medications Albuterol/Ipratropium (Duoneb -) 1 amp NEB Q6H PRN PRN Reason: SHORTNESS OF BREATH Aspirin (Ecotrin -) 81 mg PO DAILY [facility] Last Admin: 05/29/20 10:30 Dose: 81 mg Documented by: Atorvastatin Calcium (Lipitor -) 40 mg PO HS [facility] Last Admin: 05/28/20 21:47 Dose: 40 mg Documented by: Budesonide/Formoterol Fumarate (Symbicort 80/4.5mcg -) 2 puff IH BID [facility] Last Admin: 05/29/20 10:44 Dose: 2 puff Documented by: Calcium Carbonate (Os-[place] 500mg -) 500 mg PO BID [facility] Last Admin: 05/29/20 10:30 Dose: 500 mg Documented by: Docusate Sodium (Colace -) 100 mg PO TID [facility] Last Admin: 05/29/20 05:53 Dose: Not Given Documented by: Enoxaparin Sodium (Lovenox -) 40 mg SQ DAILY [facility] Last Admin: 05/29/20 10:29 Dose: 40 mg Documented by: Ceftriaxone Sodium 1 gm/ (Dextrose) 50 mls @ 100 mls/hr IVPB Q24H [facility]; Protocol Last Admin: 05/28/20 21:47 Dose: 100 mls/hr Documented by: Lisinopril (Prinivil) 5 mg PO DAILY [facility] Last Admin: 05/29/20 10:35 Dose: 5 mg Documented by: Metoprolol Succinate (Toprol Xl -) 25 mg PO DAILY [facility] Last Admin: 05/29/20 10:30 Dose: 25 mg Documented by: Multivitamins/Minerals/Vitamin C (Tab-A-Vit -) 1 tab PO DAILY [facility] Last Admin: 05/29/20 10:29 Dose: 1 tab Documented by: Polyethylene Glycol (Miralax (For Daily Use) -) 17 gm PO DAILY [facility] Last Admin: 05/29/20 10:49 Dose: Not Given Documented by: - Objective Vital Signs: Vital Signs Temperature 98.8 F 05/29/20 06:20 Pulse Rate 61 05/29/20 06:20 Respiratory Rate 20 05/29/20 06:20 Blood Pressure 137/55 L 05/29/20 06:20 O2 Sat by Pulse Oximetry (%) 95 05/29/20 06:20 Constitutional: Yes: No Distress, Calm Cardiovascular: Yes: S1, S2 Respiratory: Yes: Regular, CTA Bilaterally Gastrointestinal: Yes: Normal Bowel Sounds, Soft Musculoskeletal: Yes: WNL Extremities: Yes: WNL Neurological: Yes: Alert, Confusion Labs: CBC, BMP 05/29/20 07:49 05/29/20 07:49 INR, PTT INR 1.28 (0.83-1.09) H 05/23/20 05:40 Assessment/Plan Problem List - Problems (1) Acute metabolic encephalopathy Code(s): G93.41 - METABOLIC ENCEPHALOPATHY (2) CAD (coronary artery disease) Code(s): I25.10 - ATHSCL HEART DISEASE OF [place] CORONARY ARTERY W/O ANG PCTRS Qualifiers: Coronary Disease-Associated Artery/Lesion type: [place] artery [place] vs. transplanted heart: [place] heart Associated angina: without angina Qualified Code(s): I25.10 - Atherosclerotic heart disease of [place] coronary artery without angina pectoris (3) COPD (chronic obstructive pulmonary disease) Code(s): J44.9 - CHRONIC OBSTRUCTIVE PULMONARY DISEASE, UNSPECIFIED Qualifiers: COPD type: unspecified COPD Qualified Code(s): J44.9 - Chronic obstructive pulmonary disease, unspecified (4) Demand ischemia Code(s): I24.8 - OTHER FORMS OF ACUTE ISCHEMIC HEART DISEASE (5) Diastolic dysfunction Code(s): I51.89 - OTHER ILL-DEFINED HEART DISEASES (6) Fall Code(s): W19.XXXA - UNSPECIFIED FALL, INITIAL ENCOUNTER (7) HTN (hypertension) Code(s): I10 - ESSENTIAL (PRIMARY) HYPERTENSION Qualifiers: Hypertension type: essential hypertension Qualified Code(s): I10 - Essential (primary) hypertension (8) Hyperlipidemia Code(s): E78.5 - HYPERLIPIDEMIA, UNSPECIFIED Qualifiers: Hyperlipidemia type: pure hypercholesterolemia Qualified Code(s): E78.00 - Pure hypercholesterolemia, unspecified; E78.0 - Pure hypercholesterolemia (9) UTI (urinary tract infection) Code(s): N39.0 - URINARY TRACT INFECTION, SITE NOT SPECIFIED Qualifiers: Urinary tract infection type: site unspecified Hematuria presence: with hematuria Qualified Code(s): N39.0 - Urinary tract infection, site not specified; R31.9 - Hematuria, unspecified (10) Weakness Code(s): R53.1 - WEAKNESS plan continue abx monitor once stbale will deescalte
[2020-05-29] MEDS ORDERED: cefTRIAXone SODIUM 1 GM VIAL ONE (22:42)
[2020-05-29] MEDS ORDERED: DEXTROSE 5%-WATER - 50 ML IVPB ONE (22:42)
[2020-05-29] MEDS: CEFTRIAXONE 1 GM in DEXTROSE 5%-WATER - 50 ML IVPB SCH (22:52)
[2020-05-30] MEDS: DOCUSATE SODIUM 100 MG CAPSULE (FP) PO SCH ×3 (05:48→22:10)
--- NOTE | 2020-05-30 06:42 | PN ---
Progress Note, Physician History of Present Illness: pulmonary awake,comfortable,-resp distress,on nasal o2 - Current Medication List Current Medications: Active Medications Albuterol/Ipratropium (Duoneb -) 1 amp NEB Q6H PRN PRN Reason: SHORTNESS OF BREATH Aspirin (Ecotrin -) 81 mg PO DAILY [facility] Last Admin: 05/29/20 10:30 Dose: 81 mg Documented by: Atorvastatin Calcium (Lipitor -) 40 mg PO HS [facility] Last Admin: 05/28/20 21:47 Dose: 40 mg Documented by: Budesonide/Formoterol Fumarate (Symbicort 80/4.5mcg -) 2 puff IH BID [facility] Last Admin: 05/29/20 22:52 Dose: 2 puff Documented by: Calcium Carbonate (Os-[place] 500mg -) 500 mg PO BID [facility] Last Admin: 05/29/20 22:51 Dose: 500 mg Documented by: Docusate Sodium (Colace -) 100 mg PO TID [facility] Last Admin: 05/30/20 05:48 Dose: Not Given Documented by: Enoxaparin Sodium (Lovenox -) 40 mg SQ DAILY [facility] Last Admin: 05/29/20 10:29 Dose: 40 mg Documented by: Ceftriaxone Sodium 1 gm/ (Dextrose) 50 mls @ 100 mls/hr IVPB Q24H [facility]; Protocol Last Admin: 05/29/20 22:52 Dose: 100 mls/hr Documented by: Lisinopril (Prinivil) 5 mg PO DAILY [facility] Last Admin: 05/29/20 10:35 Dose: 5 mg Documented by: Metoprolol Succinate (Toprol Xl -) 25 mg PO DAILY [facility] Last Admin: 05/29/20 10:30 Dose: 25 mg Documented by: Multivitamins/Minerals/Vitamin C (Tab-A-Vit -) 1 tab PO DAILY [facility] Last Admin: 05/29/20 10:29 Dose: 1 tab Documented by: Polyethylene Glycol (Miralax (For Daily Use) -) 17 gm PO DAILY [facility] Last Admin: 05/29/20 10:49 Dose: Not Given Documented by: - Objective Vital Signs: Vital Signs Temperature 98.1 F 05/30/20 05:48 Pulse Rate 72 05/30/20 05:48 Respiratory Rate 18 05/30/20 05:48 Blood Pressure 145/74 05/30/20 05:48 O2 Sat by Pulse Oximetry (%) 92 L 05/30/20 05:48 Constitutional: Yes: Calm, Thin Eyes: Yes: WNL HENT: Yes: WNL Neck: Yes: WNL Cardiovascular: Yes: Regular Rate and Rhythm, S1, S2 Respiratory: Yes: Rales (scattered matthew crackles) Gastrointestinal: Yes: Normal Bowel Sounds, Soft Extremities: Yes: WNL Edema: No Labs: CBC, BMP 05/29/20 07:49 05/29/20 07:49 INR, PTT INR 1.28 (0.83-1.09) H 05/23/20 05:40 Problem List - Problems (1) Acute metabolic encephalopathy Code(s): G93.41 - METABOLIC ENCEPHALOPATHY (2) CAD (coronary artery disease) Code(s): I25.10 - ATHSCL HEART DISEASE OF [place] CORONARY ARTERY W/O ANG PCTRS Qualifiers: Coronary Disease-Associated Artery/Lesion type: [place] artery [place] vs. transplanted heart: [place] heart Associated angina: without angina Qualified Code(s): I25.10 - Atherosclerotic heart disease of [place] coronary artery without angina pectoris (3) COPD (chronic obstructive pulmonary disease) Code(s): J44.9 - CHRONIC OBSTRUCTIVE PULMONARY DISEASE, UNSPECIFIED Qualifiers: COPD type: unspecified COPD Qualified Code(s): J44.9 - Chronic obstructive pulmonary disease, unspecified (4) Demand ischemia Code(s): I24.8 - OTHER FORMS OF ACUTE ISCHEMIC HEART DISEASE (5) Diastolic dysfunction Code(s): I51.89 - OTHER ILL-DEFINED HEART DISEASES (6) Fall Code(s): W19.XXXA - UNSPECIFIED FALL, INITIAL ENCOUNTER (7) HTN (hypertension) Code(s): I10 - ESSENTIAL (PRIMARY) HYPERTENSION Qualifiers: Hypertension type: essential hypertension Qualified Code(s): I10 - Essential (primary) hypertension (8) Hyperlipidemia Code(s): E78.5 - HYPERLIPIDEMIA, UNSPECIFIED Qualifiers: Hyperlipidemia type: pure hypercholesterolemia Qualified Code(s): E78.00 - Pure hypercholesterolemia, unspecified; E78.0 - Pure hypercholesterolemia (9) UTI (urinary tract infection) Code(s): N39.0 - URINARY TRACT INFECTION, SITE NOT SPECIFIED Qualifiers: Urinary tract infection type: site unspecified Hematuria presence: with hematuria Qualified Code(s): N39.0 - Urinary tract infection, site not specified; R31.9 - Hematuria, unspecified (10) Weakness Code(s): R53.1 - WEAKNESS Assessment/Plan IMP S/P FALL ?SYNCOPE R/O RLL INFILTRATE LIKELY ASPIRATION ALTERED MENTAL STATUS improving COPD UTI H/O PARTIAL L LUNG 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 transplanted heart: [place] heart Associated angina: without angina Qualified Code(s): I25.10 - Atherosclerotic heart disease of [place] coronary artery without angina pectoris (3) COPD (chronic obstructive pulmonary disease) Code(s): J44.9 - CHRONIC OBSTRUCTIVE PULMONARY DISEASE, UNSPECIFIED Qualifiers: COPD type: unspecified COPD Qualified Code(s): J44.9 - Chronic obstructive pulmonary disease, unspecified (4) Demand ischemia Code(s): I24.8 - OTHER FORMS OF ACUTE ISCHEMIC HEART DISEASE (5) Diastolic dysfunction Code(s): I51.89 - OTHER ILL-DEFINED HEART DISEASES (6) Fall Code(s): W19.XXXA - UNSPECIFIED FALL, INITIAL ENCOUNTER (7) HTN (hypertension) Code(s): I10 - ESSENTIAL (PRIMARY) HYPERTENSION Qualifiers: Hypertension type: essential hypertension Qualified Code(s): I10 - Essential (primary) hypertension (8) Hyperlipidemia Code(s): E78.5 - HYPERLIPIDEMIA, UNSPECIFIED Qualifiers: Hyperlipidemia type: pure hypercholesterolemia Qualified Code(s): E78.00 - Pure hypercholesterolemia, unspecified; E78.0 - Pure hypercholesterolemia (9) UTI (urinary tract infection) Code(s): N39.0 - URINARY TRACT INFECTION, SITE NOT SPECIFIED Qualifiers: Urinary tract infection type: site unspecified Hematuria presence: with hematuria Qualified Code(s): N39.0 - Urinary tract infection, site not specified; R31.9 - Hematuria, unspecified (10) Weakness Code(s): R53.1 - WEAKNESS
[2020-05-30] MEDS: ENOXAPARIN NA (PORCINE) 40 MG/0.4 ML DISP.SYRIN SQ SCH (09:24)
[2020-05-30] MEDS: CALCIUM (OYSTER SHELL) 500 MG TABLET (FP) PO SCH ×2 (09:25→22:11)
[2020-05-30] MEDS: MULTIVITAMINS (DAILY MVI) TABLET (FP) PO SCH (09:25)
[2020-05-30] MEDS: ASPIRIN COATED 81 MG TABLET.EC PO SCH (09:25)
[2020-05-30] MEDS: metoPROLOL SUCCINATE 25 MG TAB.SR.24H (FP) PO SCH (09:25)
[2020-05-30] MEDS: POLYETHYLENE GLYCOL 3350 119 GM BTL PO SCH (09:26)
[2020-05-30] MEDS: LISINOPRIL 5 MG TABLET (FP) PO SCH (09:26)
--- NOTE | 2020-05-30 10:44 | PN ---
Progress Note, Physician - Current Medication List Current Medications: Active Medications Albuterol/Ipratropium (Duoneb -) 1 amp NEB Q6H PRN PRN Reason: SHORTNESS OF BREATH Aspirin (Ecotrin -) 81 mg PO DAILY [facility] Last Admin: 05/30/20 09:25 Dose: 81 mg Documented by: Atorvastatin Calcium (Lipitor -) 40 mg PO HS [facility] Last Admin: 05/28/20 21:47 Dose: 40 mg Documented by: Budesonide/Formoterol Fumarate (Symbicort 80/4.5mcg -) 2 puff IH BID [facility] Last Admin: 05/29/20 22:52 Dose: 2 puff Documented by: Calcium Carbonate (Os-[place] 500mg -) 500 mg PO BID [facility] Last Admin: 05/30/20 09:25 Dose: 500 mg Documented by: Docusate Sodium (Colace -) 100 mg PO TID [facility] Last Admin: 05/30/20 05:48 Dose: Not Given Documented by: Enoxaparin Sodium (Lovenox -) 40 mg SQ DAILY [facility] Last Admin: 05/30/20 09:24 Dose: 40 mg Documented by: Ceftriaxone Sodium 1 gm/ (Dextrose) 50 mls @ 100 mls/hr IVPB Q24H [facility]; Protocol Last Admin: 05/29/20 22:52 Dose: 100 mls/hr Documented by: Lisinopril (Prinivil) 5 mg PO DAILY [facility] Last Admin: 05/30/20 09:26 Dose: 5 mg Documented by: Metoprolol Succinate (Toprol Xl -) 25 mg PO DAILY [facility] Last Admin: 05/30/20 09:25 Dose: 25 mg Documented by: Multivitamins/Minerals/Vitamin C (Tab-A-Vit -) 1 tab PO DAILY [facility] Last Admin: 05/30/20 09:25 Dose: 1 tab Documented by: Polyethylene Glycol (Miralax (For Daily Use) -) 17 gm PO DAILY [facility] Last Admin: 05/30/20 09:26 Dose: Not Given Documented by: - Objective Vital Signs: Vital Signs Temperature 98.1 F 05/30/20 05:48 Pulse Rate 72 05/30/20 05:48 Respiratory Rate 18 05/30/20 05:48 Blood Pressure 145/74 05/30/20 05:48 O2 Sat by Pulse Oximetry (%) 92 L 05/30/20 05:48 Eyes: Yes: WNL, Conjunctiva Clear, EOM Intact HENT: Yes: WNL, Atraumatic, Normocephalic Neck: Yes: WNL, Supple, Trachea Midline Cardiovascular: Yes: WNL, Regular Rate and Rhythm Respiratory: Yes: Diminished Gastrointestinal: Yes: WNL, Normal Bowel Sounds Genitourinary: Yes: WNL Musculoskeletal: Yes: WNL Extremities: Yes: WNL Edema: No Integumentary: Yes: WNL Labs: CBC, BMP 05/29/20 07:49 05/29/20 07:49 INR, PTT INR 1.28 (0.83-1.09) H 05/23/20 05:40 Assessment/Plan - Problems (1) CAD (coronary artery disease) Code(s): I25.10 - ATHSCL HEART DISEASE OF [place] CORONARY ARTERY W/O ANG PCTRS Qualifiers: Coronary Disease-Associated Artery/Lesion type: [place] artery [place] vs. transplanted heart: [place] heart Associated angina: without angina Qualified Code(s): I25.10 - Atherosclerotic heart disease of [place] coronary artery without angina pectoris (2) COPD (chronic obstructive pulmonary disease) Code(s): J44.9 - CHRONIC OBSTRUCTIVE PULMONARY DISEASE, UNSPECIFIED Qualifiers: COPD type: unspecified COPD Qualified Code(s): J44.9 - Chronic obstructive pulmonary disease, unspecified (3) HTN (hypertension) Code(s): I10 - ESSENTIAL (PRIMARY) HYPERTENSION Qualifiers: Hypertension type: essential hypertension Qualified Code(s): I10 - Essential (primary) hypertension (4) Diastolic dysfunction Code(s): I51.89 - OTHER ILL-DEFINED HEART DISEASES (5) Demand ischemia Code(s): I24.8 - OTHER FORMS OF ACUTE ISCHEMIC HEART DISEASE (6) Hyperlipidemia Code(s): E78.5 - HYPERLIPIDEMIA, UNSPECIFIED Qualifiers: Hyperlipidemia type: pure hypercholesterolemia Qualified Code(s): E78.00 - Pure hypercholesterolemia, unspecified; E78.0 - Pure hypercholesterolemia Assessment/Plan 05/25/2020 Echo: Normal biventricular size and fxn, mild MR, TR, abnl LV compliance 1. Unwitnessed fall unclear mechanical versus a syncopal episode 2. Coronary artery disease post percutaneous coronary intervention with evidence of demand ischemic injury angina pectoris (Patient has not had coronary artery bypass graft surgery as stated in the notes) 3. Diastolic left ventricular dysfunction with class 0 [place] [employer] classification left ventricular failure 4. Hypertensive cardiovascular disease 5. 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 History of lung surgery partial resection 8. History of chronic obstructive pulmonary disease 9. Urinary tract infection 10. Chronic kidney disease 11. Abnormal liver function testing 12. Fever on empiric abx PLAN: 1. Continue Toprol-XL 25 qd and lisinopril 5 qd with dose titration as needed/as tolerated, troponins have plateaued 2. Continue Lipitor 40 qd and Ecotrin 81 qd, repleted K 3. Antibiotics as per the primary team 4. PT->gait training, DVT prophylaxis, dysphagia diet
--- NOTE | 2020-05-30 11:39 | PN ---
Progress Note, Physician History of Present Illness: still with confusion stable - Current Medication List Current Medications: Active Medications Albuterol/Ipratropium (Duoneb -) 1 amp NEB Q6H PRN PRN Reason: SHORTNESS OF BREATH Aspirin (Ecotrin -) 81 mg PO DAILY [facility] Last Admin: 05/30/20 09:25 Dose: 81 mg Documented by: Atorvastatin Calcium (Lipitor -) 40 mg PO HS [facility] Last Admin: 05/28/20 21:47 Dose: 40 mg Documented by: Budesonide/Formoterol Fumarate (Symbicort 80/4.5mcg -) 2 puff IH BID [facility] Last Admin: 05/29/20 22:52 Dose: 2 puff Documented by: Calcium Carbonate (Os-[place] 500mg -) 500 mg PO BID [facility] Last Admin: 05/30/20 09:25 Dose: 500 mg Documented by: Docusate Sodium (Colace -) 100 mg PO TID [facility] Last Admin: 05/30/20 05:48 Dose: Not Given Documented by: Enoxaparin Sodium (Lovenox -) 40 mg SQ DAILY [facility] Last Admin: 05/30/20 09:24 Dose: 40 mg Documented by: Ceftriaxone Sodium 1 gm/ (Dextrose) 50 mls @ 100 mls/hr IVPB Q24H [facility]; Protocol Last Admin: 05/29/20 22:52 Dose: 100 mls/hr Documented by: Lisinopril (Prinivil) 5 mg PO DAILY [facility] Last Admin: 05/30/20 09:26 Dose: 5 mg Documented by: Metoprolol Succinate (Toprol Xl -) 25 mg PO DAILY [facility] Last Admin: 05/30/20 09:25 Dose: 25 mg Documented by: Multivitamins/Minerals/Vitamin C (Tab-A-Vit -) 1 tab PO DAILY [facility] Last Admin: 05/30/20 09:25 Dose: 1 tab Documented by: Polyethylene Glycol (Miralax (For Daily Use) -) 17 gm PO DAILY [facility] Last Admin: 05/30/20 09:26 Dose: Not Given Documented by: - Objective Vital Signs: Vital Signs Temperature 98.1 F 05/30/20 05:48 Pulse Rate 72 05/30/20 05:48 Respiratory Rate 18 05/30/20 05:48 Blood Pressure 145/74 05/30/20 05:48 O2 Sat by Pulse Oximetry (%) 92 L 05/30/20 05:48 Constitutional: Yes: No Distress, Calm Cardiovascular: Yes: S1, S2 Respiratory: Yes: Regular, CTA Bilaterally Gastrointestinal: Yes: Normal Bowel Sounds, Soft Musculoskeletal: Yes: WNL Extremities: Yes: WNL Neurological: Yes: Alert, Confusion Labs: CBC, BMP 05/29/20 07:49 05/29/20 07:49 INR, PTT INR 1.28 (0.83-1.09) H 05/23/20 05:40 Assessment/Plan Problem List - Problems (1) Acute metabolic encephalopathy Code(s): G93.41 - METABOLIC ENCEPHALOPATHY (2) CAD (coronary artery disease) Code(s): I25.10 - ATHSCL HEART DISEASE OF [place] CORONARY ARTERY W/O ANG PCTRS Qualifiers: Coronary Disease-Associated Artery/Lesion type: [place] artery [place] vs. transplanted heart: [place] heart Associated angina: without angina Qualified Code(s): I25.10 - Atherosclerotic heart disease of [place] coronary artery without angina pectoris (3) COPD (chronic obstructive pulmonary disease) Code(s): J44.9 - CHRONIC OBSTRUCTIVE PULMONARY DISEASE, UNSPECIFIED Qualifiers: COPD type: unspecified COPD Qualified Code(s): J44.9 - Chronic obstructive pulmonary disease, unspecified (4) Demand ischemia Code(s): I24.8 - OTHER FORMS OF ACUTE ISCHEMIC HEART DISEASE (5) Diastolic dysfunction Code(s): I51.89 - OTHER ILL-DEFINED HEART DISEASES (6) Fall Code(s): W19.XXXA - UNSPECIFIED FALL, INITIAL ENCOUNTER (7) HTN (hypertension) Code(s): I10 - ESSENTIAL (PRIMARY) HYPERTENSION Qualifiers: Hypertension type: essential hypertension Qualified Code(s): I10 - Essential (primary) hypertension (8) Hyperlipidemia Code(s): E78.5 - HYPERLIPIDEMIA, UNSPECIFIED Qualifiers: Hyperlipidemia type: pure hypercholesterolemia Qualified Code(s): E78.00 - Pure hypercholesterolemia, unspecified; E78.0 - Pure hypercholesterolemia (9) UTI (urinary tract infection) Code(s): N39.0 - URINARY TRACT INFECTION, SITE NOT SPECIFIED Qualifiers: Urinary tract infection type: site unspecified Hematuria presence: with hematuria Qualified Code(s): N39.0 - Urinary tract infection, site not specified; R31.9 - Hematuria, unspecified (10) Weakness Code(s): R53.1 - WEAKNESS plan continue abx monitor once stbale will deescalte tomorrow
--- NOTE | 2020-05-30 12:31 | PN ---
Physical Exam: SUBJECTIVE: Patient seen and examined, alert, oriented x2, tolerating nectar thick fluids afebrile, labs pending for today OBJECTIVE: Vital Signs Period Temp Pulse Resp BP Sys/Zamudio Pulse Ox Last 24 Hr 97.8 F-98.7 F 57-74 18-18 124-146/59-74 92-98 GENERAL: The patient is awake, alert, confused, in no acute distress. HEAD: Normal with no signs of trauma. EYES: PERRL, extraocular movements intact, sclera anicteric, conjunctiva clear. No ptosis. ENT: Ears normal, nares patent, oropharynx clear without exudates, moist mucous membranes. NECK: Trachea midline, full range of motion, supple. LUNGS: Breath sounds equal, clear to auscultation bilaterally, no wheezes, no crackles, no accessory muscle use. HEART: Regular rate and rhythm, S1, S2 without murmur, rub or gallop. ABDOMEN: Soft, nontender, nondistended, normoactive bowel sounds, no guarding, no rebound, no hepatosplenomegaly, no masses. EXTREMITIES: 2+ pulses, warm, well-perfused, no edema. NEUROLOGICAL: Cranial nerves II through XII grossly intact. Normal speech, gait not observed. PSYCH: Normal mood, normal affect. SKIN: Warm, dry, normal turgor, no rashes or lesions noted Active Medications Generic Name Dose Route Start Last Admin Trade Name Freq PRN Reason Stop Dose Admin Albuterol/Ipratropium 1 amp 05/28/20 20:10 Duoneb - NEB Q6H PRN SHORTNESS OF BREATH Aspirin 81 mg 05/29/20 10:00 05/30/20 09:25 Ecotrin - PO 81 mg DAILY [facility] Administration Atorvastatin Calcium 40 mg 05/28/20 22:00 05/28/20 21:47 Lipitor - PO 40 mg HS [facility] Administration Budesonide/Formoterol Fumarate 2 puff 05/28/20 22:00 05/29/20 22:52 Symbicort 80/4.5mcg - IH 2 puff BID [facility] Administration Calcium Carbonate 500 mg 05/28/20 22:00 05/30/20 09:25 Os-[place] 500mg - PO 500 mg BID [facility] Administration Docusate Sodium 100 mg 05/28/20 22:00 05/30/20 05:48 Colace - PO Not Given TID [facility] Enoxaparin Sodium 40 mg 05/29/20 10:00 05/30/20 09:24 Lovenox - SQ 40 mg DAILY [facility] Administration Ceftriaxone Sodium 1 gm/ 50 mls @ 100 mls/hr 05/28/20 22:00 05/29/20 22:52 Dextrose IVPB 100 mls/hr Q24H [facility] Administration Protocol Lisinopril 5 mg 05/29/20 10:00 05/30/20 09:26 Prinivil PO 5 mg DAILY [facility] Administration Metoprolol Succinate 25 mg 05/29/20 10:00 05/30/20 09:25 Toprol Xl - PO 25 mg DAILY [facility] Administration Multivitamins/Minerals/Vitamin C 1 tab 05/29/20 10:00 05/30/20 09:25 Tab-A-Vit - PO 1 tab DAILY [facility] Administration Polyethylene Glycol 17 gm 05/29/20 10:00 05/30/20 09:26 Miralax (For Daily Use) - PO Not Given DAILY [facility] ASSESSMENT/PLAN: Patient is an 79 year old male with a significant past medical history of COPD, HTN, CAD, 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 on admission patient also noted to have toxic metabolic encephalopathy with moderate protein calorie malnutrition. He was found to have Klebsiella UTI and on ceftriaxone. Problem List - Problems (1) UTI due to Klebsiella species Assessment/Plan: on ceftriaxone day 7. continue Iv per ID Code(s): N39.0 - URINARY TRACT INFECTION, SITE NOT SPECIFIED; B96.89 - OTH BACTERIAL AGENTS THE CAUSE OF DISEASES CLASSD ELSWHR (2) Acute metabolic encephalopathy Assessment/Plan: head ct negative, blood cultures negative to date UC + Kleb, on Ceftriaxone 1 gram daily ID following swallow eval showed need for aspiration precautions with nectar thick fluids monitor mental status Code(s): G93.41 - METABOLIC ENCEPHALOPATHY (3) CAD (coronary artery disease) Assessment/Plan: on lipitor Code(s): I25.10 - ATHSCL HEART DISEASE OF [place] CORONARY ARTERY W/O ANG PCTRS Qualifiers: Coronary Disease-Associated Artery/Lesion type: [place] artery [place] vs. transplanted heart: [place] heart Associated angina: without angina Qualified Code(s): I25.10 - Atherosclerotic heart disease of [place] coronary artery without angina pectoris (4) COPD (chronic obstructive pulmonary disease) Assessment/Plan: mild wheezing of anterior upper lobes, diminished otherwise. on 2 liters of nasal cannula pulmonary consulted and following chest ct shows moderate to severe COPD. on symbicort. Code(s): J44.9 - CHRONIC OBSTRUCTIVE PULMONARY DISEASE, UNSPECIFIED Qualifiers: COPD type: unspecified COPD Qualified Code(s): J44.9 - Chronic obstructive pulmonary disease, unspecified (5) Constipation Assessment/Plan: bowel regimen ordered Code(s): K59.00 - CONSTIPATION, UNSPECIFIED (6) Demand ischemia Assessment/Plan: cardiology following Code(s): I24.8 - OTHER FORMS OF ACUTE ISCHEMIC HEART DISEASE (7) Diastolic dysfunction Assessment/Plan: no signs of volume overload. cardiology following lisinopril added Code(s): I51.89 - OTHER ILL-DEFINED HEART DISEASES (8) Moderate protein-calorie malnutrition Assessment/Plan: on supplemnts, RD following Code(s): E44.0 - MODERATE PROTEIN-CALORIE MALNUTRITION (9) Prophylactic measure Code(s): Z29.9 - ENCOUNTER FOR PROPHYLACTIC MEASURES, UNSPECIFIED (10) Rhabdomyolysis Assessment/Plan: CPK improving, daily labs. Code(s): M62.82 - RHABDOMYOLYSIS (11) Fall Assessment/Plan: physical therapy evaluation. patient for SNF placement Code(s): W19.XXXA - UNSPECIFIED FALL, INITIAL ENCOUNTER (12) Elevated liver enzymes Assessment/Plan: per ultrasound, mild fatty infiltration of the liver noted. abdominal aortic anyeursm wit stent and possible gallbladder polyp liver enzymes trending down Code(s): R74.8 - ABNORMAL LEVELS OF OTHER SERUM ENZYMES (13) DVT prophylaxis Assessment/Plan: on lovenox Code(s): Z29.9 - ENCOUNTER FOR PROPHYLACTIC MEASURES, UNSPECIFIED Visit type - Emergency Visit Emergency Visit: Yes ED Registration Date: 05/22/20 Care time: The patient presented to the Emergency Department on the above date a nd was hospitalized for further evaluation of their emergent condition. - New Patient This patient is new to me today: Yes Date on this admission: 05/30/20 - Critical Care Critical Care patient: No - Medication Review Med list reviewed for High Risk Meds patients 65 and older: No
[2020-05-30 12:42] LABS: BASO % 0.9 % (0-2.0); HEMATOCRIT 37.4 % (35.4-49); HEMOGLOBIN 12.6 GM/dL (11.7-16.9); LYMPH % 15.8 % (8-40); MCH 32.7 pg (25.7-33.7); MCHC 33.8 g/dl (32.0-35.9); MEAN CELL VOLUME 96.9 fl (80-96); MEAN PLT VOLUME 8.9 fl (7.5-11.1); MONO % 8.7 % (3.8-10.2); NEUT % 72.6 % (42.8-82.8); PLATELET COUNT 235 K/MM3 (134-434); RBC 3.86 M/mm3 (4.00-5.60); RDW 14.1 % (11.9-15.9); WHITE BLOOD COUNT 9.4 K/mm3 (4.0-10.0)
[2020-05-30 13:03] LABS: ALBUMIN 2.3 g/dl (3.4-5.0); BILIRUBIN,TOTAL 0.8 mg/dL (0.2-1); BLOOD UREA NITROGEN 16.4 mg/dL (7-18); CREATININE 0.7 mg/dL (0.55-1.3); MAGNESIUM 1.9 mg/dL (1.8-2.4); POTASSIUM 3.6 mmol/L (3.5-5.1); TOT PROT 5.5 g/dl (6.4-8.2)
--- NOTE | 2020-05-30 13:27 | CON.NEURO ---
Consult - Alcohol/Substance Use Hx Alcohol Use: No - Smoking History Smoking history: Former smoker Have you smoked in the past 12 months: No Aproximately how many cigarettes per day: 20 - Social History Occupation: [employer] Home Medications - Allergies Allergies/Adverse Reactions: Allergies Allergy/AdvReac Type Severity Reaction Status Date / Time No Known Allergies Allergy Verified 08/02/19 15:36 Physical Exam-Neuro Vital Signs: Vital Signs Temperature 98.1 F 05/30/20 05:48 Pulse Rate 68 05/30/20 10:00 Respiratory Rate 18 05/30/20 10:00 Blood Pressure 150/68 05/30/20 10:00 O2 Sat by Pulse Oximetry (%) 96 05/30/20 10:00 Labs: CBC, BMP 05/30/20 11:16 05/30/20 11:16 INR, PTT INR 1.28 (0.83-1.09) H 05/23/20 05:40 Assessment/Plan cc Possible Parkinson disease HPI 79 year old male hisotyr of COPD, HTN, CAD, 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 syncope. Patient has also being treated for confusion and possible deliriums. THere is family hisotry of Parkinson disease. I was asked toe valuate if he has parkinson disease or lewy body disease. Patient did get confused during hospitalization . He has no history parkinson disease. 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 Patient has been delirius , unlikely to be PD at this time, no evidence of resting tremor or rigidity. Plan: watch it for now, would not benefit from sinemet at this time. - continue current level of care Thanking you so much Kayode Eubanks MD
[2020-05-30] MEDS: BUDESONIDE/FORMETEROL FUMARATE 80/4.5 mcg INHALER IH SCH ×2 (14:33→22:11)
[2020-05-30] MEDS ORDERED: cefTRIAXone SODIUM 1 GM VIAL ONE (21:20)
[2020-05-30] MEDS ORDERED: DEXTROSE 5%-WATER - 50 ML IVPB ONE (21:20)
[2020-05-30] MEDS: CEFTRIAXONE 1 GM in DEXTROSE 5%-WATER - 50 ML IVPB SCH (22:11)
[2020-05-31] MEDS: DOCUSATE SODIUM 100 MG CAPSULE (FP) PO SCH ×2 (05:48→14:18)
--- NOTE | 2020-05-31 07:03 | PN ---
Progress Note, Physician History of Present Illness: PULMONARY AWAKE ,CONFUSED,-RESP DISTRESS - Current Medication List Current Medications: Active Medications Albuterol/Ipratropium (Duoneb -) 1 amp NEB Q6H PRN PRN Reason: SHORTNESS OF BREATH Aspirin (Ecotrin -) 81 mg PO DAILY [facility] Last Admin: 05/30/20 09:25 Dose: 81 mg Documented by: Atorvastatin Calcium (Lipitor -) 40 mg PO HS [facility] Last Admin: 05/28/20 21:47 Dose: 40 mg Documented by: Budesonide/Formoterol Fumarate (Symbicort 80/4.5mcg -) 2 puff IH BID [facility] Last Admin: 05/30/20 22:11 Dose: 2 puff Documented by: Calcium Carbonate (Os-[place] 500mg -) 500 mg PO BID [facility] Last Admin: 05/30/20 22:11 Dose: 500 mg Documented by: Docusate Sodium (Colace -) 100 mg PO TID [facility] Last Admin: 05/31/20 05:48 Dose: Not Given Documented by: Enoxaparin Sodium (Lovenox -) 40 mg SQ DAILY [facility] Last Admin: 05/30/20 09:24 Dose: 40 mg Documented by: Ceftriaxone Sodium 1 gm/ (Dextrose) 50 mls @ 100 mls/hr IVPB Q24H [facility]; Protocol Last Admin: 05/30/20 22:11 Dose: 100 mls/hr Documented by: Lisinopril (Prinivil) 5 mg PO DAILY [facility] Last Admin: 05/30/20 09:26 Dose: 5 mg Documented by: Metoprolol Succinate (Toprol Xl -) 25 mg PO DAILY [facility] Last Admin: 05/30/20 09:25 Dose: 25 mg Documented by: Multivitamins/Minerals/Vitamin C (Tab-A-Vit -) 1 tab PO DAILY [facility] Last Admin: 05/30/20 09:25 Dose: 1 tab Documented by: Polyethylene Glycol (Miralax (For Daily Use) -) 17 gm PO DAILY [facility] Last Admin: 05/30/20 09:26 Dose: Not Given Documented by: - Objective Vital Signs: Vital Signs Temperature 98.4 F 05/31/20 06:00 Pulse Rate 72 05/31/20 06:00 Respiratory Rate 19 05/31/20 06:00 Blood Pressure 144/59 L 05/31/20 06:00 O2 Sat by Pulse Oximetry (%) 92 L 05/31/20 06:00 Constitutional: Yes: Well Nourished, Calm, Thin Eyes: Yes: WNL HENT: Yes: WNL Neck: Yes: WNL Cardiovascular: Yes: Regular Rate and Rhythm, S1, S2 Respiratory: Yes: Rhonchi (FEW RHONCHI) Gastrointestinal: Yes: Normal Bowel Sounds, Soft Extremities: Yes: WNL Edema: No Labs: CBC, BMP 05/30/20 11:16 05/30/20 11:16 INR, PTT INR 1.28 (0.83-1.09) H 05/23/20 05:40 Problem List - Problems (1) Acute metabolic encephalopathy Code(s): G93.41 - METABOLIC ENCEPHALOPATHY (2) CAD (coronary artery disease) Code(s): I25.10 - ATHSCL HEART DISEASE OF [place] CORONARY ARTERY W/O ANG PCTRS Qualifiers: Coronary Disease-Associated Artery/Lesion type: [place] artery [place] vs. transplanted heart: [place] heart Associated angina: without angina Qualified Code(s): I25.10 - Atherosclerotic heart disease of [place] coronary artery without angina pectoris (3) COPD (chronic obstructive pulmonary disease) Code(s): J44.9 - CHRONIC OBSTRUCTIVE PULMONARY DISEASE, UNSPECIFIED Qualifiers: COPD type: unspecified COPD Qualified Code(s): J44.9 - Chronic obstructive pulmonary disease, unspecified (4) Demand ischemia Code(s): I24.8 - OTHER FORMS OF ACUTE ISCHEMIC HEART DISEASE (5) Diastolic dysfunction Code(s): I51.89 - OTHER ILL-DEFINED HEART DISEASES (6) Fall Code(s): W19.XXXA - UNSPECIFIED FALL, INITIAL ENCOUNTER (7) HTN (hypertension) Code(s): I10 - ESSENTIAL (PRIMARY) HYPERTENSION Qualifiers: Hypertension type: essential hypertension Qualified Code(s): I10 - Essential (primary) hypertension (8) Hyperlipidemia Code(s): E78.5 - HYPERLIPIDEMIA, UNSPECIFIED Qualifiers: Hyperlipidemia type: pure hypercholesterolemia Qualified Code(s): E78.00 - Pure hypercholesterolemia, unspecified; E78.0 - Pure hypercholesterolemia (9) UTI (urinary tract infection) Code(s): N39.0 - URINARY TRACT INFECTION, SITE NOT SPECIFIED Qualifiers: Urinary tract infection type: site unspecified Hematuria presence: with hematuria Qualified Code(s): N39.0 - Urinary tract infection, site not sp ecified; R31.9 - Hematuria, unspecified (10) Weakness Code(s): R53.1 - WEAKNESS Assessment/Plan IMP S/P FALL ?SYNCOPE R/O RLL INFILTRATE LIKELY ASPIRATION ALTERED MENTAL STATUS improving COPD UTI H/O PARTIAL L LUNG 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 transplanted heart: [place] heart Associated angina: without angina Qualified Code(s): I25.10 - Atherosclerotic heart disease of [place] coronary artery without angina pectoris (3) COPD (chronic obstructive pulmonary disease) Code(s): J44.9 - CHRONIC OBSTRUCTIVE PULMONARY DISEASE, UNSPECIFIED Qualifiers: COPD type: unspecified COPD Qualified Code(s): J44.9 - Chronic obstructive pulmonary disease, unspecified (4) Demand ischemia Code(s): I24.8 - OTHER FORMS OF ACUTE ISCHEMIC HEART DISEASE (5) Diastolic dysfunction Code(s): I51.89 - OTHER ILL-DEFINED HEART DISEASES (6) Fall Code(s): W19.XXXA - UNSPECIFIED FALL, INITIAL ENCOUNTER (7) HTN (hypertension) Code(s): I10 - ESSENTIAL (PRIMARY) HYPERTENSION Qualifiers: Hypertension type: essential hypertension Qualified Code(s): I10 - Essential (primary) hypertension (8) Hyperlipidemia Code(s): E78.5 - HYPERLIPIDEMIA, UNSPECIFIED Qualifiers: Hyperlipidemia type: pure hypercholesterolemia Qualified Code(s): E78.00 - Pure hypercholesterolemia, unspecified; E78.0 - Pure hypercholesterolemia (9) UTI (urinary tract infection) Code(s): N39.0 - URINARY TRACT INFECTION, SITE NOT SPECIFIED Qualifiers: Urinary tract infection type: site unspecified Hematuria presence: with hematuria Qualified Code(s): N39.0 - Urinary tract infection, site not specified; R31.9 - Hematuria, unspecified (10) Weakness Code(s): R53.1 - WEAKNESS
--- NOTE | 2020-05-31 08:48 | PN ---
Progress Note, Physician - Current Medication List Current Medications: Active Medications Albuterol/Ipratropium (Duoneb -) 1 amp NEB Q6H PRN PRN Reason: SHORTNESS OF BREATH Aspirin (Ecotrin -) 81 mg PO DAILY [facility] Last Admin: 05/30/20 09:25 Dose: 81 mg Documented by: Atorvastatin Calcium (Lipitor -) 40 mg PO HS [facility] Last Admin: 05/28/20 21:47 Dose: 40 mg Documented by: Budesonide/Formoterol Fumarate (Symbicort 80/4.5mcg -) 2 puff IH BID [facility] Last Admin: 05/30/20 22:11 Dose: 2 puff Documented by: Calcium Carbonate (Os-[place] 500mg -) 500 mg PO BID [facility] Last Admin: 05/30/20 22:11 Dose: 500 mg Documented by: Docusate Sodium (Colace -) 100 mg PO TID [facility] Last Admin: 05/31/20 05:48 Dose: Not Given Documented by: Enoxaparin Sodium (Lovenox -) 40 mg SQ DAILY [facility] Last Admin: 05/30/20 09:24 Dose: 40 mg Documented by: Ceftriaxone Sodium 1 gm/ (Dextrose) 50 mls @ 100 mls/hr IVPB Q24H [facility]; Protocol Last Admin: 05/30/20 22:11 Dose: 100 mls/hr Documented by: Lisinopril (Prinivil) 5 mg PO DAILY [facility] Last Admin: 05/30/20 09:26 Dose: 5 mg Documented by: Metoprolol Succinate (Toprol Xl -) 25 mg PO DAILY [facility] Last Admin: 05/30/20 09:25 Dose: 25 mg Documented by: Multivitamins/Minerals/Vitamin C (Tab-A-Vit -) 1 tab PO DAILY [facility] Last Admin: 05/30/20 09:25 Dose: 1 tab Documented by: Polyethylene Glycol (Miralax (For Daily Use) -) 17 gm PO DAILY [facility] Last Admin: 05/30/20 09:26 Dose: Not Given Documented by: - Objective Vital Signs: Vital Signs Temperature 98.4 F 05/31/20 06:00 Pulse Rate 72 05/31/20 06:00 Respiratory Rate 19 05/31/20 06:00 Blood Pressure 144/59 L 05/31/20 06:00 O2 Sat by Pulse Oximetry (%) 92 L 05/31/20 06:00 Eyes: Yes: WNL, Conjunctiva Clear, EOM Intact HENT: Yes: WNL, Atraumatic, Normocephalic Neck: Yes: WNL, Supple, Trachea Midline Cardiovascular: Yes: WNL, Regular Rate and Rhythm Respiratory: Yes: WNL, Regular, CTA Bilaterally Gastrointestinal: Yes: WNL, Normal Bowel Sounds Genitourinary: Yes: WNL Musculoskeletal: Yes: WNL Extremities: Yes: WNL Edema: No Integumentary: Yes: WNL Labs: CBC, BMP 05/30/20 11:16 05/30/20 11:16 INR, PTT INR 1.28 (0.83-1.09) H 05/23/20 05:40 Assessment/Plan - Problems (1) CAD (coronary artery disease) Code(s): I25.10 - ATHSCL HEART DISEASE OF [place] CORONARY ARTERY W/O ANG PCTRS Qualifiers: Coronary Disease-Associated Artery/Lesion type: [place] artery [place] vs. transplanted heart: [place] heart Associated angina: without angina Qualified Code(s): I25.10 - Atherosclerotic heart disease of [place] coronary artery without angina pectoris (2) COPD (chronic obstructive pulmonary disease) Code(s): J44.9 - CHRONIC OBSTRUCTIVE PULMONARY DISEASE, UNSPECIFIED Qualifiers: COPD type: unspecified COPD Qualified Code(s): J44.9 - Chronic obstructive pulmonary disease, unspecified (3) HTN (hypertension) Code(s): I10 - ESSENTIAL (PRIMARY) HYPERTENSION Qualifiers: Hypertension type: essential hypertension Qualified Code(s): I10 - Essential (primary) hypertension (4) Diastolic dysfunction Code(s): I51.89 - OTHER ILL-DEFINED HEART DISEASES (5) Demand ischemia Code(s): I24.8 - OTHER FORMS OF ACUTE ISCHEMIC HEART DISEASE (6) Hyperlipidemia Code(s): E78.5 - HYPERLIPIDEMIA, UNSPECIFIED Qualifiers: Hyperlipidemia type: pure hypercholesterolemia Qualified Code(s): E78.00 - Pure hypercholesterolemia, unspecified; E78.0 - Pure hypercholesterolemia Assessment/Plan 05/25/2020 Echo: Normal biventricular size and fxn, mild MR, TR, abnl LV compli ance 1. Unwitnessed fall unclear mechanical versus a syncopal episode 2. Coronary artery disease post percutaneous coronary intervention with evidence of demand ischemic injury angina pectoris (Patient has not had coronary artery bypass graft surgery as stated in the notes) 3. Diastolic left ventricular dysfunction with class 0 [place] [employer] classification left ventricular failure 4. Hypertensive cardiovascular disease 5. 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 History of lung surgery partial resection 8. History of chronic obstructive pulmonary disease 9. Urinary tract infection 10. Chronic kidney disease 11. Abnormal liver function testing 12. Fever on empiric abx PLAN: 1. Continue Toprol-XL 25 qd and lisinopril 5 qd with dose titration as needed/as tolerated, troponins have plateaued 2. Continue Lipitor 40 qd and Ecotrin 81 qd, repleted K 3. Antibiotics as per the primary team 4. PT->gait training, DVT prophylaxis, dysphagia diet
[2020-05-31] MEDS: BUDESONIDE/FORMETEROL FUMARATE 80/4.5 mcg INHALER IH SCH (09:35)
[2020-05-31] MEDS: LISINOPRIL 5 MG TABLET (FP) PO SCH (09:35)
[2020-05-31] MEDS: CALCIUM (OYSTER SHELL) 500 MG TABLET (FP) PO SCH (09:35)
[2020-05-31] MEDS: POLYETHYLENE GLYCOL 3350 119 GM BTL PO SCH (09:35)
[2020-05-31] MEDS: ENOXAPARIN NA (PORCINE) 40 MG/0.4 ML DISP.SYRIN SQ SCH (09:35)
[2020-05-31] MEDS: ASPIRIN COATED 81 MG TABLET.EC PO SCH (09:35)
[2020-05-31] MEDS: MULTIVITAMINS (DAILY MVI) TABLET (FP) PO SCH (09:35)
[2020-05-31] MEDS: metoPROLOL SUCCINATE 25 MG TAB.SR.24H (FP) PO SCH (09:36)
--- NOTE | 2020-05-31 11:12 | PN ---
Physical Exam: SUBJECTIVE: Patient seen and examined, alert, x 1-2 periods of confusion, no agitation, small skin tear noted on bridge of nose, dressing applied OBJECTIVE: Vital Signs Period Temp Pulse Resp BP Sys/Zamudio Pulse Ox Last 24 Hr 97.5 F-98.5 F 62-81 18-21 141-146/52-90 92-99 GENERAL: The patient is awake, alert, oriented x1, no agitation HEAD: Normal with no signs of trauma. EYES: PERRL, extraocular movements intact, sclera anicteric, conjunctiva clear. No ptosis. ENT: Ears normal, nares patent, oropharynx clear without exudates, moist mucous membranes. NECK: Trachea midline, full range of motion, supple. LUNGS: Breath sounds equal, clear to auscultation bilaterally, no wheezes, no crackles, no accessory muscle use. HEART: Regular rate and rhythm, S1, S2 without murmur, rub or gallop. ABDOMEN: Soft, nontender, nondistended, normoactive bowel sounds, no guarding, no rebound, no hepatosplenomegaly, no masses. EXTREMITIES: 2+ pulses, warm, well-perfused, no edema. NEUROLOGICAL: Cranial nerves II through XII grossly intact. Normal speech, gait not observed. PSYCH: Normal mood, normal affect. SKIN: Warm, dry, normal turgor, no rashes or lesions noted Laboratory Results - last 24 hr 05/30/20 05/30/20 11:16 11:16 WBC 9.4 RBC 3.86 L Hgb 12.6 Hct 37.4 MCV 96.9 H MCH 32.7 MCHC 33.8 RDW 14.1 Plt Count 235 D MPV 8.9 Absolute Neuts (auto) 6.8 Neutrophils % 72.6 Lymphocytes % 15.8 Monocytes % 8.7 Eosinophils % 2.0 Basophils % 0.9 Nucleated RBC % 0 Sodium 146 H Potassium 3.6 Chloride 113 H Carbon Dioxide 26 Anion Gap 8 BUN 16.4 Creatinine 0.7 Est GFR (CKD-EPI)AfAm 103.30 Est GFR (CKD-EPI)NonAf 89.13 Random Glucose 96 Calcium 8.0 L Magnesium 1.9 Total Bilirubin 0.8 AST 94 H ALT 84 H Alkaline Phosphatase 114 Total Protein 5.5 L Albumin 2.3 L Active Medications Generic Name Dose Route Start Last Admin Trade Name Freq PRN Reason Stop Dose Admin Albuterol/Ipratropium 1 amp 05/28/20 20:10 Duoneb - NEB Q6H PRN SHORTNESS OF BREATH Aspirin 81 mg 05/29/20 10:00 05/31/20 09:35 Ecotrin - PO 81 mg DAILY [facility] Administration Atorvastatin Calcium 40 mg 05/28/20 22:00 05/28/20 21:47 Lipitor - PO 40 mg HS [facility] Administration Bacitracin 1 applic 05/31/20 11:15 Bacitracin - TP 06/04/20 10:00 DAILY [facility] Budesonide/Formoterol Fumarate 2 puff 05/28/20 22:00 05/31/20 09:35 Symbicort 80/4.5mcg - IH 2 puff BID [facility] Administration Calcium Carbonate 500 mg 05/28/20 22:00 05/31/20 09:35 Os-Kwabena 500mg - PO 500 mg BID [facility] Administration Docusate Sodium 100 mg 05/28/20 22:00 05/31/20 05:48 Colace - PO Not Given TID [facility] Enoxaparin Sodium 40 mg 05/29/20 10:00 05/31/20 09:35 Lovenox - SQ 40 mg DAILY [facility] Administration Ceftriaxone Sodium 1 gm/ 50 mls @ 100 mls/hr 05/28/20 22:00 05/30/20 22:11 Dextrose IVPB 100 mls/hr Q24H [facility] Administration Protocol Lisinopril 5 mg 05/29/20 10:00 05/31/20 09:35 Prinivil PO 5 mg DAILY [facility] Administration Metoprolol Succinate 25 mg 05/29/20 10:00 05/31/20 09:36 Toprol Xl - PO 25 mg DAILY [facility] Administration Multivitamins/Minerals/Vitamin C 1 tab 05/29/20 10:00 05/31/20 09:35 Tab-A-Vit - PO 1 tab DAILY [facility] Administration Polyethylene Glycol 17 gm 05/29/20 10:00 05/31/20 09:35 Miralax (For Daily Use) - PO 17 gm DAILY [facility] Administration ASSESSMENT/PLAN: Patient is an 79 year old male with a significant past medical history of COPD, HTN, CAD, 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 on admission patient also noted to have toxic metabolic encephalopathy with moderate protein calorie malnutrition. He was found to have Klebsiella UTI and on ceftriaxone. Problem List - Problems (1) UTI due to Klebsiella species Assessment/Plan: -on rocephin, continue Iv per ID Code(s): N39.0 - URINARY TRACT INFECTION, SITE NOT SPECIFIED; B96.89 - OTH BACTERIAL AGENTS THE CAUSE OF DISEASES CLASSD ELSWHR (2) Acute metabolic encephalopathy Assessment/Plan: head ct negative, blood cultures negative to date UC + Kleb, on Ceftriaxone 1 gram daily ID following swallow eval showed need for aspiration precautions with nectar thick fluids monitor mental status Code(s): G93.41 - METABOLIC ENCEPHALOPATHY (3) CAD (coronary artery disease) Assessment/Plan: on lipitor Code(s): I25.10 - ATHSCL HEART DISEASE OF [place] CORONARY ARTERY W/O ANG PCTRS Qualifiers: Coronary Disease-Associated Artery/Lesion type: [place] artery [place] vs. transplanted heart: [place] heart Associated angina: without angina Qualified Code(s): I25.10 - Atherosclerotic heart disease of [place] coronary artery without angina pectoris (4) COPD (chronic obstructive pulmonary disease) Assessment/Plan: mild wheezing of anterior upper lobes, diminished otherwise. on 2 liters of na hemalatha cannula pulmonary consulted and following chest ct shows moderate to severe COPD. on symbicort. Code(s): J44.9 - CHRONIC OBSTRUCTIVE PULMONARY DISEASE, UNSPECIFIED Qualifiers: COPD type: unspecified COPD Qualified Code(s): J44.9 - Chronic obstructive pulmonary disease, unspecified (5) Constipation Assessment/Plan: bowel regimen ordered Code(s): K59.00 - CONSTIPATION, UNSPECIFIED (6) Demand ischemia Assessment/Plan: cardiology following Code(s): I24.8 - OTHER FORMS OF ACUTE ISCHEMIC HEART DISEASE (7) Diastolic dysfunction Assessment/Plan: no signs of volume overload. cardiology following lisinopril added Code(s): I51.89 - OTHER ILL-DEFINED HEART DISEASES (8) Moderate protein-calorie malnutrition Assessment/Plan: on supplemnts, RD following Code(s): E44.0 - MODERATE PROTEIN-CALORIE MALNUTRITION (9) Prophylactic measure Code(s): Z29.9 - ENCOUNTER FOR PROPHYLACTIC MEASURES, UNSPECIFIED (10) Rhabdomyolysis Assessment/Plan: CPK improving, daily labs. Code(s): M62.82 - RHABDOMYOLYSIS (11) Fall Assessment/Plan: physical therapy evaluation. patient for SNF placement Code(s): W19.XXXA - UNSPECIFIED FALL, INITIAL ENCOUNTER (12) Elevated liver enzymes Assessment/Plan: per ultrasound, mild fatty infiltration of the liver noted. abdominal aortic anyeursm wit stent and possible gallbladder polyp liver enzymes trending down Code(s): R74.8 - ABNORMAL LEVELS OF OTHER SERUM ENZYMES (13) DVT prophylaxis Assessment/Plan: on lovenox Code(s): Z29.9 - ENCOUNTER FOR PROPHYLACTIC MEASURES, UNSPECIFIED Visit type - Emergency Visit Emergency Visit: Yes ED Registration Date: 05/22/20 Care time: The patient presented to the Emergency Department on the above date and was hospitalized for further evaluation of their emergent condition. - New Patient This patient is new to me today: No - Critical Care Critical Care patient: No - Medication Review Med list reviewed for High Risk Meds patients 65 and older: No
[2020-05-31] MEDS ORDERED: BACITRACIN 15 GM TUBE TOPICAL OINTMENT TP SCH (11:15)
[2020-05-31 11:28] LABS: ALBUMIN 2.4 g/dl (3.4-5.0); BASO % 0.8 % (0-2.0); CALCIUM 8.1 mg/dL (8.5-10.1); CREATININE 0.8 mg/dL (0.55-1.3); EOS % 1.9 % (0-4.5); HEMOGLOBIN 12.5 GM/dL (11.7-16.9); LYMPH % 15.1 % (8-40); MAGNESIUM 1.9 mg/dL (1.8-2.4); MCH 32.4 pg (25.7-33.7); MCHC 33.8 g/dl (32.0-35.9); MEAN PLT VOLUME 8.8 fl (7.5-11.1); MONO % 7.5 % (3.8-10.2); NEUT % 74.7 % (42.8-82.8); PLATELET COUNT 268 K/MM3 (134-434); POTASSIUM 3.4 mmol/L (3.5-5.1); RBC 3.85 M/mm3 (4.00-5.60); RDW 14.1 % (11.9-15.9); TOT PROT 5.8 g/dl (6.4-8.2); WHITE BLOOD COUNT 11.1 K/mm3 (4.0-10.0)
[2020-05-31] MEDS ORDERED: POTASSIUM CHLORIDE ORAL LIQUID 20 MEQ/15 ML PO ONE (11:54)
--- NOTE | 2020-05-31 12:57 | DS ---
Physical Exam: SUBJECTIVE: Patient seen and examined OBJECTIVE: Vital Signs Period Temp Pulse Resp BP Sys/Zamudio Pulse Ox Last 24 Hr 97.5 F-98.5 F 62-81 18-21 141-146/52-90 92-99 PHYSICAL EXAM GENERAL: The patient is awake, alert, and fully oriented, in no acute distress. HEAD: Normal with no signs of trauma. EYES: PERRL, extraocular movements intact, sclera anicteric, conjunctiva clear. ENT: Ears normal, nares patent, oropharynx clear without exudates, moist mucous membranes. NECK: Trachea midline, full range of motion, supple. LUNGS: Breath sounds equal, clear to auscultation bilaterally, no wheezes, no crackles, no accessory muscle use. HEART: Regular rate and rhythm, S1, S2 without murmur, rub or gallop. ABDOMEN: Soft, nontender, nondistended, normoactive bowel sounds, no guarding, no rebound, no hepatosplenomegaly, no masses. EXTREMITIES: 2+ pulses, warm, well-perfused, no edema. NEUROLOGICAL: Cranial nerves II through XII grossly intact. Normal speech, gait not observed. PSYCH: Normal mood, normal affect. SKIN: Warm, dry, normal turgor, no rashes or lesions noted. LABS Laboratory Results - last 24 hr 05/30/20 05/31/20 05/31/20 11:16 10:36 10:36 WBC 11.1 H RBC 3.85 L Hgb 12.5 Hct 37.0 MCV 96.0 MCH 32.4 MCHC 33.8 RDW 14.1 Plt Count 268 MPV 8.8 Absolute Neuts (auto) 8.3 H Neutrophils % 74.7 Lymphocytes % 15.1 Monocytes % 7.5 Eosinophils % 1.9 Basophils % 0.8 Nucleated RBC % 0 Sodium 146 H 146 H Potassium 3.6 3.4 L Chloride 113 H 111 H Carbon Dioxide 26 28 Anion Gap 8 6 L BUN 16.4 15.0 Creatinine 0.7 0.8 Est GFR (CKD-EPI)AfAm 103.30 97.78 Est GFR (CKD-EPI)NonAf 89.13 84.37 Random Glucose 96 130 H Calcium 8.0 L 8.1 L Magnesium 1.9 1.9 Total Bilirubin 0.8 1.0 AST 94 H 74 H ALT 84 H 82 H Alkaline Phosphatase 114 106 Total Protein 5.5 L 5.8 L Albumin 2.3 L 2.4 L HOSPITAL COURSE: Date of Admission:05/22/20 Date of Discharge: 05/31/20 Patient is an 79 year old male with a significant past medical history of COPD, HTN, CAD, 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 on admission patient also noted to have toxic metabolic encephalopathy with moderate protein calorie malnutrition. He was found to have Klebsiella UTI and on ceftriaxone. Problem List - Problems (1) UTI due to Klebsiella species Assessment/Plan: -completed rocephin 1gr daily Code(s): N39.0 - URINARY TRACT INFECTION, SITE NOT SPECIFIED; B96.89 - OTH BACTERIAL AGENTS THE CAUSE OF DISEASES CLASSD ELSWHR (2) Acute metabolic encephalopathy Assessment/Plan: head ct negative, blood cultures negative to date UC + Kleb, completed rocephin ID following swallow eval showed need for aspiration precautions with nectar thick fluids monitor mental status Code(s): G93.41 - METABOLIC ENCEPHALOPATHY (3) CAD (coronary artery disease) Assessment/Plan: on lipitor Code(s): I25.10 - ATHSCL HEART DISEASE OF [place] CORONARY ARTERY W/O ANG PCTRS Qualifiers: Coronary Disease-Associated Artery/Lesion type: [place] artery [place] vs. transplanted heart: [place] heart Associated angina: without angina Qualified Code(s): I25.10 - Atherosclerotic heart disease of [place] coronary artery without angina pectoris (4) COPD (chronic obstructive pulmonary disease) Assessment/Plan: mild wheezing of anterior upper lobes, diminished otherwise. on 2 liters of nasal cannula pulmonary consulted and following chest ct shows moderate to severe COPD. on symbicort. Code(s): J44.9 - CHRONIC OBSTRUCTIVE PULMONARY DISEASE, UNSPECIFIED Qualifiers: COPD type: unspecified COPD Qualified Code(s): J44.9 - Chronic obstructive pulmonary disease, unspecified (5) Constipation Assessment/Plan: bowel regimen ordered Code(s): K59.00 - CONSTIPATION, UNSPECIFIED (6) Demand ischemia Assessment/Plan: cardiology following Code(s): I24.8 - OTHER FORMS OF ACUTE ISCHEMIC HEART DISEASE (7) Diastolic dysfunction Assessment/Plan: no signs of volume overload. cardiology following lisinopril added Code(s): I51.89 - OTHER ILL-DEFINED HEART DISEASES (8) Moderate protein-calorie malnutrition Assessment/Plan: on supplemnts, RD following Code(s): E44.0 - MODERATE PROTEIN-CALORIE MALNUTRITION (9) Prophylactic measure Code(s): Z29.9 - ENCOUNTER FOR PROPHYLACTIC MEASURES, UNSPECIFIED (10) Rhabdomyolysis Assessment/Plan: CPK improving, daily labs. Code(s): M62.82 - RHABDOMYOLYSIS (11) Fall Assessment/Plan: physical therapy evaluation. patient for SNF placement Code(s): W19.XXXA - UNSPECIFIED FALL, INITIAL ENCOUNTER (12) Elevated liver enzymes-stable Assessment/Plan: per ultrasound, mild fatty infiltration of the liver noted. abdominal aortic anyeursm wit stent and possible gallbladder polyp liver enzymes trending down Code(s): R74.8 - ABNORMAL LEVELS OF OTHER SERUM ENZYMES (13) DVT prophylaxis Assessment/Plan: on lovenox Code(s): Z29.9 - ENCOUNTER FOR PROPHYLACTIC MEASURES, UNSPECIFIED Minutes to complete discharge: 30 Discharge Summary Problems reviewed: Yes Reason For Visit: UTI,ELEVATED TROPONIN LEVEL,FALL Current Active Problems ACS (acute coronary syndrome) (Acute) Acute metabolic encephalopathy (Acute) CAD (coronary artery disease) (Acute) COPD (chronic obstructive pulmonary disease) (Acute) Constipation (Acute) DVT prophylaxis (Acute) Demand ischemia (Acute) Diastolic dysfunction (Acute) Elevated liver enzymes (Acute) Fall (Acute) Fall (Acute) H/O pneumonectomy (Acute) HTN (hypertension) (Acute) Hyperlipidemia (Acute) Moderate protein-calorie malnutrition (Acute) Prophylactic measure (Acute) Rhabdomyolysis (Acute) S/P CABG (coronary artery bypass graft) (Acute) Seborrheic keratosis (Acute) Suspected COVID-19 virus infection (Acute) UTI (urinary tract infection) (Acute) UTI due to Klebsiella species (Acute) Weakness (Acute) Condition: Stable - Instructions Diet, Activity, Other Instructions: diet: dysphasia, chopped diet, ensure enlive, magic cup aspiration precautions - Home Medications Comprehensive Discharge Medication List: Ambulatory Orders Albuterol 2.5/Ipratropium 0.5 [Duoneb -] 1 amp NEB Q6H PRN amp 05/31/20 Aspirin Coated [Ecotrin -] 81 mg PO DAILY tablet.ec 05/31/20 Atorvastatin Ca [Lipitor] 40 mg PO HS tablet 05/31/20 Bacitracin - [Bacitracin Topical Ointment -] 1 applic TP DAILY tube 05/31/20 Budesonide/Formeterol Fumarate [SYMBICORT 80/4.5mcg -] 2 puff IH BID inhaler 05/31/20 Calcium (Oyster Shell) [Os-[place] 500MG -] 500 mg PO BID tablet 05/31/20 Docusate Sodium [Colace -] 100 mg PO TID capsule 05/31/20 Lisinopril [Prinivil] 5 mg PO DAILY tablet 05/31/20 Metoprolol Succinate [Toprol XL -] 25 mg PO DAILY tab.sr.24h 05/31/20 Multivitamins [Multivit ([facility] Formulary)] 1 tab PO DAILY tab 05/31/20 Polyethylene Glycol 3350 [Miralax 119 gm Btl -] 17 gm PO DAILY bottle 05/31/20 This patient is new to me today: No Emergency Visit: Yes ED Registration Date: 05/22/20 Care time: The patient presented to the Emergency Department on the above date and was hospitalized for further evaluation of their emergent condition. Critical Care patient: No - Discharge Referral Referred to [facility] Med P.C.: No
--- NOTE | 2020-05-31 13:15 | PN ---
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 syncope. Patient has also being treated for confusion and possible deliriums. THere is family hisotry of Parkinson disease. I was asked toe valuate if he has parkinson disease or lewy body disease. Patient did get confused during hospitalization . He has no history parkinson disease. 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 No evidence of PD at this time, he seems to suffer frm dementia, and delirum during this hospitalization Plan: watch it for now, would not benefit from sinemet at this time. - continue current level of care Thanking you so much Kayode Eubanks MD
[2020-05-31 15:22] VITALS: BP 115/57; PULSE 69; TEMP 98.9
== END 2020-05-31 16:30 | DRG 689 ==
LOC: JER 19:06 → JERBED 22:38 → JICU 05-23 04:50 → J4W 05-25 15:38 → J5S 05-28 18:51
PROVIDERS: ADMIT Internal Medicine; ATTEND Nurse Practitioner Family
DX: N39.0 Urinary tract infection, site not specified (principal); G93.41 Metabolic encephalopathy; M62.82 Rhabdomyolysis; I24.9 Acute ischemic heart disease, unspecified; E44.0 Moderate protein-calorie malnutrition; I24.8 Other forms of acute ischemic heart disease; J44.9 Chronic obstructive pulmonary disease, unspecified; I25.10 Atherosclerotic heart disease of native coronary artery without angina pectoris; Z90.2 Acquired absence of lung [part of]; Z95.1 Presence of aortocoronary bypass graft; L82.1 Other seborrheic keratosis; W19.XXXA Unspecified fall, initial encounter; B96.89 Other specified bacterial agents as the cause of diseases classified elsewhere; R53.1 Weakness; K59.00 Constipation, unspecified; E78.5 Hyperlipidemia, unspecified; R41.82 Altered mental status, unspecified; I12.9 Hypertensive chronic kidney disease with stage 1 through stage 4 chronic kidney disease, or unspecified chronic kidney disease; N18.9 Chronic kidney disease, unspecified; Z68.22 Body mass index [BMI] 22.0-22.9, adult; E87.6 Hypokalemia; D72.829 Elevated white blood cell count, unspecified
CPT/HCPCS: 36415; 70450-TC; 71045-TC-FY; 71250-TC; 72170-TC-FY; 74230-TC-FY; 76705-TC; 80053; 80074; 81003; 82248; 82550; 82553; 83605; 83735; 84100; 84484; 85025; 85610; 85730; 86704; 86706; 86707; 86708; 86709; 87040; 87086; 87186; 87340; 92611-GN; 93005; 93010; 93306-TC; 94640; 97116-GP; 97162-GP; 99285-25; J0131; U0003

== ENCOUNTER 2020-08-29 23:11 | Inpatient (IN) | payer OTHER ==
[2020-08-29] MEDS ORDERED: SODIUM CHLORIDE 0.9% 500 ML INFUS.BAG IV ONE (23:36)
[2020-08-29] MEDS ORDERED: AZITHROMYCIN IVPB 500 MG in DEXTROSE 5%-WATER - 250 ML IVPB ONE (23:37)
[2020-08-29] MEDS ORDERED: DEXAMETHASONE SOD PHOSPHATE 10 MG/1 ML VIAL IVPUSH ONE (23:37)
[2020-08-29] MEDS ORDERED: CEFTRIAXONE 1 GM in DEXTROSE 5%-WATER - 50 ML IVPB ONE (23:40)
[2020-08-29] MEDS ORDERED: SODIUM CHLORIDE 1,293 ML IV ONE (23:40)
[2020-08-29] MEDS ORDERED: DEXAMETHASONE SOD PHOSPHATE 10 MG/1 ML VIAL ONE (23:43)
[2020-08-29] MEDS ORDERED: ACETAMINOPHEN INJECTION 100 ML IVPB ONE (23:45)
[2020-08-29] MEDS ORDERED: AZITHROMYCIN IVPB 500 MG/250 ML BAG IVPB ONE (23:45)
[2020-08-29] MEDS ORDERED: cefTRIAXone SODIUM 1 GM VIAL ONE (23:45)
[2020-08-30] MEDS ORDERED: VANCOMYCIN 1 GM in D5W (PRE-DOCKED) 1,000 MG/250 ML IVPB ONE (00:14)
[2020-08-30] MEDS ORDERED: PIPERACILLIN/TAZOB 4.5 GM 4.5 GM in DEXTROSE 5%-WATER 100 ML IVPB ONE (00:15)
[2020-08-30 00:28] LABS: BASO % 0.3 % (0-2.0); EOS % 0.1 % (0-4.5); HEMATOCRIT 37.8 % (35.4-49); HEMOGLOBIN 11.9 GM/dL (11.7-16.9); LYMPH % 3.6 % (8-40); MCH 32.3 pg (25.7-33.7); MCHC 31.5 g/dl (32.0-35.9); MEAN CELL VOLUME 102.6 fl (80-96); MEAN PLT VOLUME 9.8 fl (7.5-11.1); MONO % 3.8 % (3.8-10.2); NEUT % 92.2 % (42.8-82.8); PLATELET COUNT 380 K/MM3 (134-434); RBC 3.68 M/mm3 (4.00-5.60); RDW 15.2 % (11.9-15.9); WHITE BLOOD COUNT 28.5 K/mm3 (4.0-10.0)
[2020-08-30] MEDS ORDERED: PIPERACILLIN/TAZOB 4.5 GM 4.5 GM/100 ML BAG IVPB ONE (00:36)
[2020-08-30] MEDS ORDERED: VANCOMYCIN 1 GRAM (PRE-DOCKED) 1,000 MG/250 ML BAG IVPB ONE (00:37)
[2020-08-30 00:40] LABS: INR 1.41 (0.83-1.09); PROTHROMBIN TIME (PATIENT) 17.2 SEC (9.7-13.0)
[2020-08-30 00:43] LABS: ACTIVATED PTT 36.9 SECONDS (25.2-36.5)
[2020-08-30 00:48] LABS: ALBUMIN 2.3 g/dl (3.4-5.0)
[2020-08-30 00:50] LABS: CREATININE 1.7 mg/dL (0.55-1.3)
[2020-08-30 00:52] LABS: BILIRUBIN,TOTAL 0.8 mg/dL (0.2-1)
[2020-08-30 01:32] LABS: ERYTHROCYTE SEDIMENTATION RATE 96 mm/hr (0-20)
[2020-08-30 01:49] LABS: VENOUS BASE EXCESS -2.2 mmol/L (-2-2); VENOUS O2 SATURATION 30.6 % (70-80); VENOUS PCO2 60.8 mmHg (38-52); VENOUS PH 7.253 (7.310-7.410)
[2020-08-30 02:04] LABS: BLOOD UREA NITROGEN 54.8 mg/dL (7-18); CALCIUM 8.9 mg/dL (8.5-10.1); N-TERMINAL BNP 2926.2 pg/ml (5-450)
[2020-08-30 05:45] LABS: ANISOCYTOSIS 2+; MACROCYTOSIS 1+; PLATELET ESTIMATE NORMAL
[2020-08-30] MEDS: SODIUM CHLORIDE 0.45% 1,000 ML IV SCH ×2 (09:20→15:46)
[2020-08-30] MEDS: ZINC SULFATE 220 MG CAPSULE (FP) PO SCH ×2 (09:33→21:36)
[2020-08-30] MEDS: CHOLECALCIFEROL (VIT D3) 1,000 UNIT (25 MCG) TABLET PO SCH (09:34)
[2020-08-30] MEDS: ASCORBIC ACID 500 MG TABLET (FP) PO SCH ×2 (09:34→21:36)
[2020-08-30 09:36] LABS: BASO % 0.1 % (0-2.0); HEMATOCRIT 31.7 % (35.4-49); LYMPH % 1.9 % (8-40); MCH 32.6 pg (25.7-33.7); MCHC 31.7 g/dl (32.0-35.9); MEAN CELL VOLUME 102.8 fl (80-96); MONO % 1.1 % (3.8-10.2); NEUT % 96.9 % (42.8-82.8); PLATELET COUNT 314 K/MM3 (134-434); RBC 3.08 M/mm3 (4.00-5.60); RDW 14.8 % (11.9-15.9)
[2020-08-30] MEDS ORDERED: ENOXAPARIN NA (PORCINE) 40 MG/0.4 ML DISP.SYRIN SQ SCH (10:00)
[2020-08-30 10:05] LABS: BLOOD UREA NITROGEN 53.4 mg/dL (7-18); MAGNESIUM 2.5 mg/dL (1.8-2.4)
[2020-08-30 10:08] LABS: CREATININE 1.5 mg/dL (0.55-1.3)
[2020-08-30 10:09] LABS: BILIRUBIN,TOTAL 0.4 mg/dL (0.2-1); PHOSPHOROUS 5.6 mg/dL (2.5-4.9); TOT PROT 6.7 g/dl (6.4-8.2)
[2020-08-30 10:11] LABS: CALCIUM 8.4 mg/dL (8.5-10.1)
[2020-08-30 11:54] LABS: ANISOCYTOSIS 0; MACROCYTOSIS 0; PLATELET ESTIMATE NORMAL
[2020-08-30] MEDS ORDERED: ENOXAPARIN NA (PORCINE) 40 MG/0.4 ML DISP.SYRIN SQ ONE (12:04)
[2020-08-30] MEDS ORDERED: DEXTROSE 5%-WATER - 50 ML IVPB ONE (15:37)
[2020-08-30] MEDS ORDERED: PIPERACILLIN/TAZOBACTAM 2.25 GM VIAL IVPB ONE (15:37)
[2020-08-30] MEDS: PIPERACILLIN/TAZOB 2.25 GM 2.25 GM in DEXTROSE 5%-WATER - 50 ML IVPB SCH ×2 (15:46→17:19)
[2020-08-30] MEDS ORDERED: DOXYCYCLINE HYCLATE 100 MG VIAL ONE (21:30)
[2020-08-30] MEDS ORDERED: DEXTROSE 5%-WATER 100 ML IVPB ONE (21:30)
[2020-08-30] MEDS: DOXYCYCLINE INJECTION 100 MG in DEXTROSE 5%-WATER 100 ML IVPB SCH (21:36)
[2020-08-31] MEDS ORDERED: PIPERACILLIN/TAZOBACTAM 2.25 GM VIAL IVPB ONE ×3 (02:52→14:36)
[2020-08-31] MEDS ORDERED: DEXTROSE 5%-WATER - 50 ML IVPB ONE ×3 (02:52→14:37)
[2020-08-31] MEDS: PIPERACILLIN/TAZOB 2.25 GM 2.25 GM in DEXTROSE 5%-WATER - 50 ML IVPB SCH ×3 (02:54→17:02)
[2020-08-31 08:14] LABS: BASO % 0.1 % (0-2.0); HEMATOCRIT 31.6 % (35.4-49); LYMPH % 5.4 % (8-40); MCH 32.3 pg (25.7-33.7); MCHC 31.7 g/dl (32.0-35.9); MEAN CELL VOLUME 101.8 fl (80-96); MEAN PLT VOLUME 9.5 fl (7.5-11.1); MONO % 2.4 % (3.8-10.2); NEUT % 92.1 % (42.8-82.8); PLATELET COUNT 326 K/MM3 (134-434); RDW 14.9 % (11.9-15.9); WHITE BLOOD COUNT 23.1 K/mm3 (4.0-10.0)
[2020-08-31 08:37] LABS: CHLORIDE 127 mmol/L (98-107); SODIUM 158 mmol/L (136-145)
[2020-08-31] MEDS ORDERED: DOXYCYCLINE HYCLATE 100 MG VIAL ONE ×2 (08:37→22:03)
[2020-08-31] MEDS ORDERED: DEXTROSE 5%-WATER 100 ML IVPB ONE ×2 (08:38→22:03)
[2020-08-31 08:47] LABS: CALCIUM 8.2 mg/dL (8.5-10.1)
[2020-08-31 08:48] LABS: ANION GAP 6 MMOL/L (8-16); BLOOD UREA NITROGEN 53.1 mg/dL (7-18); CO2 25 mmol/L (21-32); GLUCOSE,RANDOM 108 mg/dL (74-106); MAGNESIUM 2.7 mg/dL (1.8-2.4)
[2020-08-31 08:50] LABS: BILIRUBIN,TOTAL 0.7 mg/dL (0.2-1); CREATININE 1.2 mg/dL (0.55-1.3); SGPT/ALT 17 U/L (13-61); TOT PROT 6.4 g/dl (6.4-8.2)
[2020-08-31 08:51] LABS: ALK PHOS 95 U/L (45-117); SGOT/AST 16 U/L (15-37)
[2020-08-31 08:53] LABS: LDH 176 U/L (87-246)
[2020-08-31] MEDS: ENOXAPARIN NA (PORCINE) 40 MG/0.4 ML DISP.SYRIN SQ SCH (09:03)
[2020-08-31 09:55] LABS: ANISOCYTOSIS 1+; MACROCYTOSIS 1+; PLATELET ESTIMATE NORMAL
[2020-08-31] MEDS: DOXYCYCLINE INJECTION 100 MG in DEXTROSE 5%-WATER 100 ML IVPB SCH ×2 (10:31→22:07)
[2020-08-31] MEDS: CHOLECALCIFEROL (VIT D3) 1,000 UNIT (25 MCG) TABLET PO SCH (10:44)
[2020-08-31] MEDS: ZINC SULFATE 220 MG CAPSULE (FP) PO SCH ×2 (10:44→22:28)
[2020-08-31] MEDS: ASCORBIC ACID 500 MG TABLET (FP) PO SCH ×2 (10:44→22:28)
[2020-09-01] MEDS ORDERED: PIPERACILLIN/TAZOBACTAM 2.25 GM VIAL IVPB ONE ×3 (01:21→16:41)
[2020-09-01] MEDS ORDERED: DEXTROSE 5%-WATER - 50 ML IVPB ONE ×3 (01:21→16:41)
[2020-09-01] MEDS: PIPERACILLIN/TAZOB 2.25 GM 2.25 GM in DEXTROSE 5%-WATER - 50 ML IVPB SCH ×3 (01:31→17:17)
[2020-09-01] MEDS ORDERED: DOXYCYCLINE HYCLATE 100 MG VIAL ONE ×2 (07:58→21:46)
[2020-09-01] MEDS ORDERED: DEXTROSE 5%-WATER 100 ML IVPB ONE ×2 (07:58→21:46)
[2020-09-01 08:04] LABS: BASO % 0.3 % (0-2.0); HEMATOCRIT 33.4 % (35.4-49); HEMOGLOBIN 10.3 GM/dL (11.7-16.9); LYMPH % 11.3 % (8-40); MCH 31.7 pg (25.7-33.7); MEAN CELL VOLUME 102.1 fl (80-96); MEAN PLT VOLUME 9.3 fl (7.5-11.1); MONO % 5.3 % (3.8-10.2); NEUT % 83.1 % (42.8-82.8); PLATELET COUNT 351 K/MM3 (134-434); RBC 3.27 M/mm3 (4.00-5.60); RDW 14.3 % (11.9-15.9); WHITE BLOOD COUNT 18.8 K/mm3 (4.0-10.0)
[2020-09-01 08:25] LABS: CALCIUM 8.9 mg/dL (8.5-10.1)
[2020-09-01 08:26] LABS: ALBUMIN 2.1 g/dl (3.4-5.0); BLOOD UREA NITROGEN 46.5 mg/dL (7-18); MAGNESIUM 2.6 mg/dL (1.8-2.4)
[2020-09-01 08:28] LABS: CREATININE 1.2 mg/dL (0.55-1.3)
[2020-09-01 08:29] LABS: BILIRUBIN,TOTAL 0.6 mg/dL (0.2-1); TOT PROT 6.7 g/dl (6.4-8.2)
[2020-09-01] MEDS: ENOXAPARIN NA (PORCINE) 40 MG/0.4 ML DISP.SYRIN SQ SCH (08:59)
[2020-09-01] MEDS: DOXYCYCLINE INJECTION 100 MG in DEXTROSE 5%-WATER 100 ML IVPB SCH ×2 (10:12→21:54)
[2020-09-01] MEDS: CHOLECALCIFEROL (VIT D3) 1,000 UNIT (25 MCG) TABLET PO SCH (10:13)
[2020-09-01] MEDS: ZINC SULFATE 220 MG CAPSULE (FP) PO SCH ×2 (10:13→21:54)
[2020-09-01] MEDS: ASCORBIC ACID 500 MG TABLET (FP) PO SCH ×2 (10:13→21:54)
[2020-09-01] MEDS ORDERED: DEXTROSE 5%-WATER - 1,000 ML IV SCH (11:45)
[2020-09-01 12:30] VITALS: BMI 14.3
[2020-09-01 15:25] LABS: CALCIUM 8.7 mg/dL (8.5-10.1)
[2020-09-01 15:26] LABS: ALBUMIN 2.1 g/dl (3.4-5.0); BLOOD UREA NITROGEN 41.5 mg/dL (7-18)
[2020-09-01 15:29] LABS: CREATININE 1.1 mg/dL (0.55-1.3)
[2020-09-01 15:30] LABS: BILIRUBIN,TOTAL 0.5 mg/dL (0.2-1)
[2020-09-01 15:32] LABS: TOT PROT 6.4 g/dl (6.4-8.2)
[2020-09-01] MEDS ORDERED: DEXTROSE 5%-WATER - 1,000 ML with POTASSIUM CHLORIDE 10 MEQ IV SCH (19:28)
[2020-09-01 20:05] LABS: BLOOD UREA NITROGEN 39.6 mg/dL (7-18); CALCIUM 8.5 mg/dL (8.5-10.1)
[2020-09-01 20:09] LABS: BILIRUBIN,TOTAL 0.4 mg/dL (0.2-1); CREATININE 1.1 mg/dL (0.55-1.3)
[2020-09-01 20:10] LABS: TOT PROT 6.2 g/dl (6.4-8.2)
[2020-09-01] MEDS: POTASSIUM CHLORIDE 10 MEQ in DEXTROSE 5%-WATER - 1,000 ML IV SCH (21:53)
[2020-09-02] MEDS ORDERED: PIPERACILLIN/TAZOBACTAM 2.25 GM VIAL IVPB ONE ×4 (00:56→23:53)
[2020-09-02] MEDS ORDERED: DEXTROSE 5%-WATER - 50 ML IVPB ONE ×4 (00:57→23:53)
[2020-09-02] MEDS: PIPERACILLIN/TAZOB 2.25 GM 2.25 GM in DEXTROSE 5%-WATER - 50 ML IVPB SCH ×3 (01:23→17:46)
[2020-09-02] MEDS: POTASSIUM CHLORIDE 10 MEQ in DEXTROSE 5%-WATER - 1,000 ML IV SCH ×3 (05:46→22:02)
[2020-09-02] MEDS ORDERED: POTASSIUM CHLORIDE 10 MEQ in DEXTROSE 5%-WATER - 1,000 ML IV SCH (06:45)
[2020-09-02 08:11] LABS: BASO % 0.2 % (0-2.0); EOS % 0.1 % (0-4.5); HEMATOCRIT 36.2 % (35.4-49); HEMOGLOBIN 11.1 GM/dL (11.7-16.9); LYMPH % 8.7 % (8-40); MCH 31.5 pg (25.7-33.7); MCHC 30.6 g/dl (32.0-35.9); MEAN PLT VOLUME 9.9 fl (7.5-11.1); MONO % 3.2 % (3.8-10.2); NEUT % 87.8 % (42.8-82.8); PLATELET COUNT 272 K/MM3 (134-434); RBC 3.52 M/mm3 (4.00-5.60); WHITE BLOOD COUNT 17.3 K/mm3 (4.0-10.0)
[2020-09-02 08:18] LABS: BLOOD UREA NITROGEN 30.4 mg/dL (7-18); CALCIUM 8.3 mg/dL (8.5-10.1); MAGNESIUM 2.2 mg/dL (1.8-2.4)
[2020-09-02 08:22] LABS: CREATININE 0.9 mg/dL (0.55-1.3)
[2020-09-02 08:23] LABS: BILIRUBIN,TOTAL 0.7 mg/dL (0.2-1); TOT PROT 6.6 g/dl (6.4-8.2)
[2020-09-02] MEDS ORDERED: DOXYCYCLINE HYCLATE 100 MG VIAL ONE ×2 (10:48→21:54)
[2020-09-02] MEDS ORDERED: DEXTROSE 5%-WATER 100 ML IVPB ONE ×2 (10:48→21:54)
[2020-09-02] MEDS: ZINC SULFATE 220 MG CAPSULE (FP) PO SCH ×2 (10:49→22:02)
[2020-09-02] MEDS: ASCORBIC ACID 500 MG TABLET (FP) PO SCH ×2 (10:49→22:02)
[2020-09-02] MEDS: CHOLECALCIFEROL (VIT D3) 1,000 UNIT (25 MCG) TABLET PO SCH (10:49)
[2020-09-02] MEDS: DOXYCYCLINE INJECTION 100 MG in DEXTROSE 5%-WATER 100 ML IVPB SCH ×2 (10:55→22:01)
[2020-09-02] MEDS: ENOXAPARIN NA (PORCINE) 40 MG/0.4 ML DISP.SYRIN SQ SCH (10:57)
[2020-09-03] MEDS: PIPERACILLIN/TAZOB 2.25 GM 2.25 GM in DEXTROSE 5%-WATER - 50 ML IVPB SCH ×3 (01:26→17:01)
[2020-09-03] MEDS: POTASSIUM CHLORIDE 10 MEQ in DEXTROSE 5%-WATER - 1,000 ML IV SCH ×2 (06:44→17:01)
[2020-09-03 08:01] LABS: ALBUMIN 1.8 g/dl (3.4-5.0); BLOOD UREA NITROGEN 23.5 mg/dL (7-18)
[2020-09-03 08:05] LABS: CALCIUM 7.9 mg/dL (8.5-10.1); CREATININE 0.8 mg/dL (0.55-1.3)
[2020-09-03 08:06] LABS: BILIRUBIN,TOTAL 0.6 mg/dL (0.2-1); TOT PROT 5.9 g/dl (6.4-8.2)
[2020-09-03] MEDS ORDERED: DEXTROSE 5%-WATER 100 ML IVPB ONE ×2 (09:58→21:02)
[2020-09-03] MEDS ORDERED: DOXYCYCLINE HYCLATE 100 MG VIAL ONE ×2 (09:58→21:02)
[2020-09-03] MEDS ORDERED: PIPERACILLIN/TAZOBACTAM 2.25 GM VIAL IVPB ONE ×2 (09:59→16:27)
[2020-09-03] MEDS ORDERED: DEXTROSE 5%-WATER - 50 ML IVPB ONE ×2 (09:59→16:27)
[2020-09-03] MEDS: ENOXAPARIN NA (PORCINE) 40 MG/0.4 ML DISP.SYRIN SQ SCH (10:01)
[2020-09-03] MEDS: DOXYCYCLINE INJECTION 100 MG in DEXTROSE 5%-WATER 100 ML IVPB SCH ×2 (10:01→22:42)
[2020-09-03] MEDS: CHOLECALCIFEROL (VIT D3) 1,000 UNIT (25 MCG) TABLET PO SCH (10:48)
[2020-09-03] MEDS: ASCORBIC ACID 500 MG TABLET (FP) PO SCH ×2 (10:48→22:42)
[2020-09-03] MEDS: ZINC SULFATE 220 MG CAPSULE (FP) PO SCH ×2 (10:48→22:42)
[2020-09-03 11:11] LABS: BASO % 0.4 % (0-2.0); EOS % 0.3 % (0-4.5); HEMATOCRIT 36.8 % (35.4-49); HEMOGLOBIN 11.3 GM/dL (11.7-16.9); LYMPH % 10.4 % (8-40); MCH 31.6 pg (25.7-33.7); MCHC 30.8 g/dl (32.0-35.9); MEAN CELL VOLUME 102.7 fl (80-96); MEAN PLT VOLUME 9.8 fl (7.5-11.1); MONO % 3.9 % (3.8-10.2); PLATELET COUNT 245 K/MM3 (134-434); RBC 3.58 M/mm3 (4.00-5.60); RDW 14.6 % (11.9-15.9); WHITE BLOOD COUNT 14.7 K/mm3 (4.0-10.0)
[2020-09-03] MEDS ORDERED: FUROSEMIDE 40 MG/4 ML INJECTABLE VIAL IVPUSH ONE (11:13)
[2020-09-03] MEDS: POTASSIUM CHLORIDE 10 MEQ in AMINO ACIDS 4.25%/D5W 1,000 ML IV SCH (20:42)
[2020-09-04] MEDS ORDERED: PIPERACILLIN/TAZOBACTAM 2.25 GM VIAL IVPB ONE ×3 (01:07→16:56)
[2020-09-04] MEDS ORDERED: DEXTROSE 5%-WATER - 50 ML IVPB ONE ×3 (01:08→16:56)
[2020-09-04] MEDS: PIPERACILLIN/TAZOB 2.25 GM 2.25 GM in DEXTROSE 5%-WATER - 50 ML IVPB SCH ×3 (01:27→18:49)
[2020-09-04] MEDS ORDERED: DEXTROSE 5%-WATER 100 ML IVPB ONE ×2 (10:22→22:01)
[2020-09-04] MEDS ORDERED: DOXYCYCLINE HYCLATE 100 MG VIAL ONE ×2 (10:22→22:00)
[2020-09-04] MEDS: ASCORBIC ACID 500 MG TABLET (FP) PO SCH (10:27)
[2020-09-04] MEDS: ENOXAPARIN NA (PORCINE) 40 MG/0.4 ML DISP.SYRIN SQ SCH (10:27)
[2020-09-04] MEDS: CHOLECALCIFEROL (VIT D3) 1,000 UNIT (25 MCG) TABLET PO SCH (10:27)
[2020-09-04] MEDS: ZINC SULFATE 220 MG CAPSULE (FP) PO SCH (10:28)
[2020-09-04] MEDS: DOXYCYCLINE INJECTION 100 MG in DEXTROSE 5%-WATER 100 ML IVPB SCH ×2 (10:28→22:02)
[2020-09-04] MEDS: POTASSIUM CHLORIDE 10 MEQ in AMINO ACIDS 4.25%/D5W 1,000 ML IV SCH ×2 (10:32→20:01)
[2020-09-04 11:41] LABS: BASO % 0.4 % (0-2.0); EOS % 0.7 % (0-4.5); HEMATOCRIT 32.1 % (35.4-49); HEMOGLOBIN 9.9 GM/dL (11.7-16.9); LYMPH % 9.6 % (8-40); MCH 30.9 pg (25.7-33.7); MCHC 30.9 g/dl (32.0-35.9); MEAN CELL VOLUME 100.1 fl (80-96); MEAN PLT VOLUME 9.6 fl (7.5-11.1); MONO % 3.9 % (3.8-10.2); NEUT % 85.4 % (42.8-82.8); PLATELET COUNT 265 K/MM3 (134-434); RBC 3.21 M/mm3 (4.00-5.60); RDW 13.9 % (11.9-15.9); WHITE BLOOD COUNT 14.3 K/mm3 (4.0-10.0)
[2020-09-04 13:09] LABS: ALBUMIN 1.7 g/dl (3.4-5.0); ALK PHOS 83 U/L (45-117); ANION GAP 9 MMOL/L (8-16); BILIRUBIN,TOTAL 0.8 mg/dL (0.2-1); BLOOD UREA NITROGEN 29.6 mg/dL (7-18); CALCIUM 7.8 mg/dL (8.5-10.1); CHLORIDE 117 mmol/L (98-107); CO2 20 mmol/L (21-32); CREATININE 0.9 mg/dL (0.55-1.3); GLUCOSE,RANDOM 87 mg/dL (74-106); LDH 395 U/L (87-246); MAGNESIUM 1.9 mg/dL (1.8-2.4); SGOT/AST 31 U/L (15-37); SGPT/ALT 14 U/L (13-61); SODIUM 146 mmol/L (136-145)
[2020-09-05] MEDS ORDERED: DEXTROSE 5%-WATER - 50 ML IVPB ONE ×2 (01:25→08:25)
[2020-09-05] MEDS ORDERED: PIPERACILLIN/TAZOBACTAM 2.25 GM VIAL IVPB ONE ×2 (01:25→08:25)
[2020-09-05] MEDS: PIPERACILLIN/TAZOB 2.25 GM 2.25 GM in DEXTROSE 5%-WATER - 50 ML IVPB SCH ×3 (01:30→18:32)
[2020-09-05] MEDS ORDERED: DOXYCYCLINE HYCLATE 100 MG VIAL ONE ×2 (08:25→23:12)
[2020-09-05] MEDS ORDERED: DEXTROSE 5%-WATER 100 ML IVPB ONE ×2 (08:25→23:12)
[2020-09-05] MEDS: ENOXAPARIN NA (PORCINE) 40 MG/0.4 ML DISP.SYRIN SQ SCH (08:59)
[2020-09-05] MEDS: DOXYCYCLINE INJECTION 100 MG in DEXTROSE 5%-WATER 100 ML IVPB SCH ×2 (09:00→23:16)
[2020-09-05] MEDS: POTASSIUM CHLORIDE 10 MEQ in AMINO ACIDS 4.25%/D5W 1,000 ML IV SCH ×2 (12:43→23:16)
[2020-09-05] MEDS ORDERED: HYALURONIDASE, HUMAN RECOMB (HYLENEX) 150 UNIT/ML VIAL NR ONE (17:29)
[2020-09-05 21:19] LABS: BASO % 0.4 % (0-2.0); EOS % 0.2 % (0-4.5); HEMATOCRIT 34.8 % (35.4-49); HEMOGLOBIN 11.1 GM/dL (11.7-16.9); LYMPH % 8.2 % (8-40); MCH 32.1 pg (25.7-33.7); MEAN CELL VOLUME 100.3 fl (80-96); MEAN PLT VOLUME 9.4 fl (7.5-11.1); MONO % 4.4 % (3.8-10.2); NEUT % 86.8 % (42.8-82.8); PLATELET COUNT 302 K/MM3 (134-434); RBC 3.47 M/mm3 (4.00-5.60); RDW 14.4 % (11.9-15.9); WHITE BLOOD COUNT 14.5 K/mm3 (4.0-10.0)
[2020-09-05 21:52] LABS: ALBUMIN 1.8 g/dl (3.4-5.0)
[2020-09-05 21:53] LABS: BLOOD UREA NITROGEN 32.7 mg/dL (7-18)
[2020-09-05 21:57] LABS: MAGNESIUM 1.8 mg/dL (1.8-2.4)
[2020-09-05 21:59] LABS: CREATININE 0.8 mg/dL (0.55-1.3)
[2020-09-05 22:01] LABS: TOT PROT 6.6 g/dl (6.4-8.2)
[2020-09-05 22:04] LABS: BILIRUBIN,TOTAL 0.8 mg/dL (0.2-1)
[2020-09-06] MEDS ORDERED: PIPERACILLIN/TAZOBACTAM 2.25 GM VIAL IVPB ONE ×3 (01:44→17:49)
[2020-09-06] MEDS ORDERED: DEXTROSE 5%-WATER - 50 ML IVPB ONE ×3 (01:45→17:49)
[2020-09-06] MEDS: PIPERACILLIN/TAZOB 2.25 GM 2.25 GM in DEXTROSE 5%-WATER - 50 ML IVPB SCH ×3 (02:02→18:10)
[2020-09-06] MEDS ORDERED: DOXYCYCLINE HYCLATE 100 MG VIAL ONE ×2 (08:20→20:53)
[2020-09-06] MEDS ORDERED: DEXTROSE 5%-WATER 100 ML IVPB ONE ×2 (08:21→20:53)
[2020-09-06 08:58] LABS: BASO % 0.5 % (0-2.0); EOS % 0.7 % (0-4.5); HEMATOCRIT 31.1 % (35.4-49); HEMOGLOBIN 10.1 GM/dL (11.7-16.9); LYMPH % 11.1 % (8-40); MCH 32.4 pg (25.7-33.7); MCHC 32.4 g/dl (32.0-35.9); MEAN CELL VOLUME 99.9 fl (80-96); MEAN PLT VOLUME 9.2 fl (7.5-11.1); MONO % 5.3 % (3.8-10.2); NEUT % 82.4 % (42.8-82.8); PLATELET COUNT 262 K/MM3 (134-434); RBC 3.11 M/mm3 (4.00-5.60); RDW 14.1 % (11.9-15.9); WHITE BLOOD COUNT 10.9 K/mm3 (4.0-10.0)
[2020-09-06] MEDS: ENOXAPARIN NA (PORCINE) 40 MG/0.4 ML DISP.SYRIN SQ SCH (09:08)
[2020-09-06] MEDS: DOXYCYCLINE INJECTION 100 MG in DEXTROSE 5%-WATER 100 ML IVPB SCH ×2 (09:08→21:00)
[2020-09-06 09:16] LABS: ALBUMIN 1.7 g/dl (3.4-5.0); BLOOD UREA NITROGEN 35.8 mg/dL (7-18)
[2020-09-06 09:19] LABS: CREATININE 0.8 mg/dL (0.55-1.3)
[2020-09-06 09:21] LABS: BILIRUBIN,TOTAL 1.3 mg/dL (0.2-1); TOT PROT 6.2 g/dl (6.4-8.2)
[2020-09-06] MEDS: POTASSIUM CHLORIDE 10 MEQ in AMINO ACIDS 4.25%/D5W 1,000 ML IV SCH ×2 (13:25→21:01)
[2020-09-07] MEDS: POTASSIUM CHLORIDE 10 MEQ in AMINO ACIDS 4.25%/D5W 1,000 ML IV SCH ×2 (00:11→13:45)
[2020-09-07] MEDS ORDERED: PIPERACILLIN/TAZOBACTAM 2.25 GM VIAL IVPB ONE ×3 (00:44→17:47)
[2020-09-07] MEDS ORDERED: DEXTROSE 5%-WATER - 50 ML IVPB ONE ×3 (00:44→17:47)
[2020-09-07] MEDS: PIPERACILLIN/TAZOB 2.25 GM 2.25 GM in DEXTROSE 5%-WATER - 50 ML IVPB SCH ×3 (01:11→17:51)
[2020-09-07] MEDS ORDERED: DEXTROSE 5%-WATER 100 ML IVPB ONE ×2 (08:49→21:39)
[2020-09-07] MEDS ORDERED: SODIUM CHLORIDE 100 ML IVPB ONE (08:49)
[2020-09-07] MEDS ORDERED: PANTOPRAZOLE SODIUM 40 MG VIAL ONE (08:49)
[2020-09-07] MEDS ORDERED: DOXYCYCLINE HYCLATE 100 MG VIAL ONE ×2 (08:49→21:38)
[2020-09-07] MEDS: PANTOPRAZOLE SODIUM 40 MG in SODIUM CHLORIDE 100 ML IVPB SCH (09:40)
[2020-09-07] MEDS: DOXYCYCLINE INJECTION 100 MG in DEXTROSE 5%-WATER 100 ML IVPB SCH ×2 (09:40→21:54)
[2020-09-07] MEDS: ENOXAPARIN NA (PORCINE) 40 MG/0.4 ML DISP.SYRIN SQ SCH (09:41)
[2020-09-07 11:21] LABS: BASO % 0.7 % (0-2.0); EOS % 0.9 % (0-4.5); HEMATOCRIT 29.6 % (35.4-49); HEMOGLOBIN 9.6 GM/dL (11.7-16.9); LYMPH % 12.4 % (8-40); MCH 32.6 pg (25.7-33.7); MCHC 32.4 g/dl (32.0-35.9); MEAN CELL VOLUME 100.7 fl (80-96); MEAN PLT VOLUME 9.6 fl (7.5-11.1); MONO % 4.9 % (3.8-10.2); NEUT % 81.1 % (42.8-82.8); PLATELET COUNT 228 K/MM3 (134-434); RBC 2.94 M/mm3 (4.00-5.60); RDW 14.1 % (11.9-15.9); WHITE BLOOD COUNT 10.4 K/mm3 (4.0-10.0)
[2020-09-07 11:38] LABS: ALBUMIN 1.6 g/dl (3.4-5.0); BLOOD UREA NITROGEN 32.1 mg/dL (7-18); CALCIUM 7.6 mg/dL (8.5-10.1); MAGNESIUM 1.7 mg/dL (1.8-2.4)
[2020-09-07 11:41] LABS: CREATININE 0.7 mg/dL (0.55-1.3)
[2020-09-07 11:43] LABS: BILIRUBIN,TOTAL 0.9 mg/dL (0.2-1)
[2020-09-07] MEDS ORDERED: MAGNESIUM SULF 50% (8.12 MEQ/2 ML-1 GM VIAL) IVPB ONE (19:16)
[2020-09-07] MEDS ORDERED: FAT EMULSION/OLIVE/SOY (CLINOLIPID) 250 ML EMULSION IV SCH (22:00)
[2020-09-07] MEDS ORDERED: FAT EMULSION/OLIVE/SOY/PHOSPHO 250 ML IV SCH (22:00)
[2020-09-08] MEDS ORDERED: DEXTROSE 5%-WATER - 50 ML IVPB ONE ×3 (01:08→17:39)
[2020-09-08] MEDS ORDERED: PIPERACILLIN/TAZOBACTAM 2.25 GM VIAL IVPB ONE ×3 (01:08→17:39)
[2020-09-08] MEDS: PIPERACILLIN/TAZOB 2.25 GM 2.25 GM in DEXTROSE 5%-WATER - 50 ML IVPB SCH ×3 (01:19→17:44)
[2020-09-08] MEDS: POTASSIUM CHLORIDE 10 MEQ in AMINO ACIDS 4.25%/D5W 1,000 ML IV SCH ×3 (01:20→15:16)
[2020-09-08 07:51] LABS: BASO % 0.7 % (0-2.0); CALCIUM 7.6 mg/dL (8.5-10.1); EOS % 1.2 % (0-4.5); HEMATOCRIT 29.8 % (35.4-49); HEMOGLOBIN 9.8 GM/dL (11.7-16.9); MCH 32.2 pg (25.7-33.7); MCHC 32.8 g/dl (32.0-35.9); MEAN CELL VOLUME 98.1 fl (80-96); MEAN PLT VOLUME 8.9 fl (7.5-11.1); MONO % 4.9 % (3.8-10.2); NEUT % 79.2 % (42.8-82.8); PLATELET COUNT 237 K/MM3 (134-434); RBC 3.04 M/mm3 (4.00-5.60); RDW 13.9 % (11.9-15.9)
[2020-09-08 07:52] LABS: ALBUMIN 1.6 g/dl (3.4-5.0); BLOOD UREA NITROGEN 33.1 mg/dL (7-18)
[2020-09-08 07:54] LABS: CREATININE 0.6 mg/dL (0.55-1.3)
[2020-09-08 07:55] LABS: BILIRUBIN,TOTAL 0.9 mg/dL (0.2-1)
[2020-09-08] MEDS ORDERED: DEXTROSE 5%-WATER 100 ML IVPB ONE ×2 (09:15→19:56)
[2020-09-08] MEDS ORDERED: DOXYCYCLINE HYCLATE 100 MG VIAL ONE ×2 (09:15→19:56)
[2020-09-08] MEDS ORDERED: PANTOPRAZOLE SODIUM 40 MG VIAL ONE (09:16)
[2020-09-08] MEDS ORDERED: SODIUM CHLORIDE 100 ML IVPB ONE (09:16)
[2020-09-08] MEDS: PANTOPRAZOLE SODIUM 40 MG in SODIUM CHLORIDE 100 ML IVPB SCH (09:19)
[2020-09-08] MEDS: ENOXAPARIN NA (PORCINE) 40 MG/0.4 ML DISP.SYRIN SQ SCH (09:19)
[2020-09-08] MEDS: DOXYCYCLINE INJECTION 100 MG in DEXTROSE 5%-WATER 100 ML IVPB SCH ×2 (10:35→21:29)
[2020-09-08] MEDS ORDERED: [UNRECOGNIZED DRUG - OTHER] IV SCH (12:47)
[2020-09-08] MEDS ORDERED: MULTIVIT IV SCH (12:47)
[2020-09-08] MEDS ORDERED: POTASSIUM CHLORIDE IV SCH (12:47)
[2020-09-08] MEDS ORDERED: MULTIVIT INJ. ADULT COMBO WITH VIT K 1 COMBO 10 ML VIAL IV SCH (13:00)
[2020-09-08] MEDS: MULTIVIT INJ. ADULT COMBO WITH VIT K 1 COMBO 10 ML VIAL IV SCH (15:16)
[2020-09-08] MEDS: FAT EMULSION/OLIVE/SOY/PHOSPHO 250 ML IV SCH (21:28)
[2020-09-08] MEDS ORDERED: FAT EMULSION/OLIVE/SOY (CLINOLIPID) 250 ML EMULSION IV SCH (22:00)
[2020-09-09] MEDS ORDERED: DEXTROSE 5%-WATER - 50 ML IVPB ONE ×3 (01:26→15:08)
[2020-09-09] MEDS ORDERED: PIPERACILLIN/TAZOBACTAM 2.25 GM VIAL IVPB ONE ×3 (01:26→15:07)
[2020-09-09] MEDS: PIPERACILLIN/TAZOB 2.25 GM 2.25 GM in DEXTROSE 5%-WATER - 50 ML IVPB SCH ×3 (01:37→17:10)
[2020-09-09] MEDS: POTASSIUM CHLORIDE 10 MEQ in AMINO ACIDS 4.25%/D5W 1,000 ML IV SCH ×3 (03:44→16:12)
[2020-09-09] MEDS ORDERED: DOXYCYCLINE HYCLATE 100 MG VIAL ONE ×2 (08:58→21:58)
[2020-09-09] MEDS ORDERED: SODIUM CHLORIDE 100 ML IVPB ONE ×2 (08:59→10:06)
[2020-09-09] MEDS ORDERED: DEXTROSE 5%-WATER 100 ML IVPB ONE ×2 (08:59→21:58)
[2020-09-09] MEDS ORDERED: PANTOPRAZOLE SODIUM 40 MG VIAL ONE ×2 (08:59→10:06)
[2020-09-09] MEDS: ENOXAPARIN NA (PORCINE) 40 MG/0.4 ML DISP.SYRIN SQ SCH (09:56)
[2020-09-09] MEDS: PANTOPRAZOLE SODIUM 40 MG in SODIUM CHLORIDE 100 ML IVPB SCH (10:10)
[2020-09-09] MEDS: DOXYCYCLINE INJECTION 100 MG in DEXTROSE 5%-WATER 100 ML IVPB SCH ×2 (11:37→22:12)
[2020-09-09 13:21] LABS: BASO % 0.8 % (0-2.0); EOS % 0.8 % (0-4.5); HEMATOCRIT 32.6 % (35.4-49); HEMOGLOBIN 10.7 GM/dL (11.7-16.9); LYMPH % 16.4 % (8-40); MCH 32.3 pg (25.7-33.7); MCHC 32.7 g/dl (32.0-35.9); MEAN CELL VOLUME 98.7 fl (80-96); MEAN PLT VOLUME 9.4 fl (7.5-11.1); MONO % 4.2 % (3.8-10.2); NEUT % 77.8 % (42.8-82.8); PLATELET COUNT 203 K/MM3 (134-434); RDW 14.1 % (11.9-15.9); WHITE BLOOD COUNT 9.3 K/mm3 (4.0-10.0)
[2020-09-09 13:49] LABS: ALBUMIN 1.8 g/dl (3.4-5.0)
[2020-09-09 13:52] LABS: BILIRUBIN,TOTAL 1.4 mg/dL (0.2-1)
[2020-09-09 13:54] LABS: CREATININE 0.6 mg/dL (0.55-1.3); TOT PROT 6.4 g/dl (6.4-8.2)
[2020-09-09] MEDS: MULTIVIT INJ. ADULT COMBO WITH VIT K 1 COMBO 10 ML VIAL IV SCH (16:13)
[2020-09-09] MEDS ORDERED: PT OWN MED DRAWER 7, Y5N ONE (22:03)
[2020-09-09] MEDS: FAT EMULSION/OLIVE/SOY/PHOSPHO 250 ML IV SCH (22:12)
[2020-09-10] MEDS ORDERED: PIPERACILLIN/TAZOBACTAM 2.25 GM VIAL IVPB ONE ×3 (01:11→17:10)
[2020-09-10] MEDS ORDERED: DEXTROSE 5%-WATER - 50 ML IVPB ONE ×3 (01:11→17:10)
[2020-09-10] MEDS: PIPERACILLIN/TAZOB 2.25 GM 2.25 GM in DEXTROSE 5%-WATER - 50 ML IVPB SCH ×3 (01:14→17:19)
[2020-09-10] MEDS: POTASSIUM CHLORIDE 10 MEQ in AMINO ACIDS 4.25%/D5W 1,000 ML IV SCH ×3 (04:51→23:44)
[2020-09-10] MEDS: MULTIVIT INJ. ADULT COMBO WITH VIT K 1 COMBO 10 ML VIAL IV SCH ×2 (04:53→15:30)
[2020-09-10 07:03] LABS: BASO % 1.3 % (0-2.0); EOS % 1.5 % (0-4.5); HEMATOCRIT 31.5 % (35.4-49); HEMOGLOBIN 10.4 GM/dL (11.7-16.9); LYMPH % 16.3 % (8-40); MCH 32.9 pg (25.7-33.7); MCHC 33.1 g/dl (32.0-35.9); MEAN CELL VOLUME 99.4 fl (80-96); MEAN PLT VOLUME 9.8 fl (7.5-11.1); MONO % 4.7 % (3.8-10.2); NEUT % 76.2 % (42.8-82.8); PLATELET COUNT 198 K/MM3 (134-434); RBC 3.17 M/mm3 (4.00-5.60); RDW 14.1 % (11.9-15.9); WHITE BLOOD COUNT 9.7 K/mm3 (4.0-10.0)
[2020-09-10 07:21] LABS: ALBUMIN 1.7 g/dl (3.4-5.0); CALCIUM 8.1 mg/dL (8.5-10.1)
[2020-09-10 07:22] LABS: BLOOD UREA NITROGEN 32.7 mg/dL (7-18); MAGNESIUM 1.8 mg/dL (1.8-2.4)
[2020-09-10 07:25] LABS: CREATININE 0.7 mg/dL (0.55-1.3)
[2020-09-10 07:26] LABS: BILIRUBIN,TOTAL 0.5 mg/dL (0.2-1); TOT PROT 6.2 g/dl (6.4-8.2)
[2020-09-10] MEDS: ENOXAPARIN NA (PORCINE) 40 MG/0.4 ML DISP.SYRIN SQ SCH (09:03)
[2020-09-10] MEDS ORDERED: DOXYCYCLINE HYCLATE 100 MG VIAL ONE ×3 (09:35→22:22)
[2020-09-10] MEDS ORDERED: PANTOPRAZOLE SODIUM 40 MG VIAL ONE (09:36)
[2020-09-10] MEDS ORDERED: DEXTROSE 5%-WATER 100 ML IVPB ONE ×3 (09:36→22:22)
[2020-09-10] MEDS ORDERED: SODIUM CHLORIDE 100 ML IVPB ONE (09:36)
[2020-09-10] MEDS: PANTOPRAZOLE SODIUM 40 MG in SODIUM CHLORIDE 100 ML IVPB SCH (09:39)
[2020-09-10] MEDS: DOXYCYCLINE INJECTION 100 MG in DEXTROSE 5%-WATER 100 ML IVPB SCH ×2 (11:08→22:20)
[2020-09-10] MEDS ORDERED: PT OWN MED DRAWER 7, Y5N ONE (22:16)
[2020-09-11] MEDS: FAT EMULSION/OLIVE/SOY/PHOSPHO 250 ML IV SCH
[2020-09-11] MEDS ORDERED: PIPERACILLIN/TAZOBACTAM 2.25 GM VIAL IVPB ONE ×2 (03:10→10:06)
[2020-09-11] MEDS ORDERED: DEXTROSE 5%-WATER - 50 ML IVPB ONE ×2 (03:11→10:06)
[2020-09-11] MEDS: PIPERACILLIN/TAZOB 2.25 GM 2.25 GM in DEXTROSE 5%-WATER - 50 ML IVPB SCH ×2 (03:13→11:13)
[2020-09-11] MEDS: POTASSIUM CHLORIDE 10 MEQ in AMINO ACIDS 4.25%/D5W 1,000 ML IV SCH (06:42)
[2020-09-11 07:51] LABS: BASO % 1.5 % (0-2.0); EOS % 1.2 % (0-4.5); HEMATOCRIT 30.3 % (35.4-49); HEMOGLOBIN 10.3 GM/dL (11.7-16.9); LYMPH % 20.7 % (8-40); MCH 33.5 pg (25.7-33.7); MCHC 33.9 g/dl (32.0-35.9); MEAN CELL VOLUME 98.6 fl (80-96); MEAN PLT VOLUME 9.6 fl (7.5-11.1); MONO % 4.2 % (3.8-10.2); NEUT % 72.4 % (42.8-82.8); PLATELET COUNT 184 K/MM3 (134-434); RBC 3.08 M/mm3 (4.00-5.60); RDW 14.6 % (11.9-15.9); WHITE BLOOD COUNT 7.2 K/mm3 (4.0-10.0)
[2020-09-11 08:21] LABS: ALBUMIN 1.7 g/dl (3.4-5.0); BLOOD UREA NITROGEN 31.1 mg/dL (7-18)
[2020-09-11 08:22] LABS: MAGNESIUM 1.7 mg/dL (1.8-2.4)
[2020-09-11 08:25] LABS: BILIRUBIN,TOTAL 0.6 mg/dL (0.2-1); CREATININE 0.7 mg/dL (0.55-1.3)
[2020-09-11] MEDS ORDERED: DEXTROSE 5%-WATER 100 ML IVPB ONE (10:05)
[2020-09-11] MEDS ORDERED: SODIUM CHLORIDE 100 ML IVPB ONE (10:05)
[2020-09-11] MEDS ORDERED: PANTOPRAZOLE SODIUM 40 MG VIAL ONE (10:05)
[2020-09-11] MEDS ORDERED: DOXYCYCLINE HYCLATE 100 MG VIAL ONE (10:05)
[2020-09-11] MEDS: ENOXAPARIN NA (PORCINE) 40 MG/0.4 ML DISP.SYRIN SQ SCH (10:18)
[2020-09-11] MEDS: DOXYCYCLINE INJECTION 100 MG in DEXTROSE 5%-WATER 100 ML IVPB SCH (10:18)
[2020-09-11] MEDS: PANTOPRAZOLE SODIUM 40 MG in SODIUM CHLORIDE 100 ML IVPB SCH (10:19)
[2020-09-11] MEDS ORDERED: MAGNESIUM SULF 50% (8.12 MEQ/2 ML-1 GM VIAL) IVPB ONE (17:02)
[2020-09-14 20:03] VITALS: BP 124/74; PULSE 96; TEMP 97.5
== END 2020-09-14 20:20 | disposition hospice, inpatient (51) | DRG 871 ==
LOC: JER 23:11 → JERBED 08-30 00:11 → J7W 08-30 14:04
PROVIDERS: ADMIT Internal Medicine; ATTEND Nurse Practitioner Acute Care
DX: A41.9 Sepsis, unspecified organism (principal); J18.9 Pneumonia, unspecified organism; J96.01 Acute respiratory failure with hypoxia; G92 Toxic encephalopathy; G93.41 Metabolic encephalopathy; E43 Unspecified severe protein-calorie malnutrition; N17.9 Acute kidney failure, unspecified; Z68.1 Body mass index [BMI] 19.9 or less, adult; R64 Cachexia; I25.10 Atherosclerotic heart disease of native coronary artery without angina pectoris; R65.20 Severe sepsis without septic shock; J44.9 Chronic obstructive pulmonary disease, unspecified; D64.9 Anemia, unspecified; R62.7 Adult failure to thrive; D72.829 Elevated white blood cell count, unspecified
CPT/HCPCS: 36415; 70450-TC; 71045-TC-FY; 74230-TC-FY; 80053; 80061; 82728; 82803; 83605; 83615; 83721; 83735; 83880; 84100; 84132; 84443; 84484; 85025; 85379; 85384; 85610; 85651; 85730; 86140; 87040; 87086; 87899; 92611-GN; 93005; 93010; 99285-25; C9803; G0480; J1100; J3473; U0003